=== PATIENT | female | born 1965 | race Caucasian/White ===

== ENCOUNTER → 2016-09-08 | Outpatient (CLI) | payer MEDICARE ==
[~2016-09-08] MED LIST: /ESCI20TA PO; /LOR25TA PO; /ONDA4TA; /PANT40TA; /WARF25TA OR; /WARF5TA OR; /WARF5TA PO; AMBI12.52 PO; AMBI5TAB OR; ASPI81TA45 OR; ATEN25TA PO; ATEN50TA2; B12 IM; BABY81CH OR; CHAN1PAK9 PO; COLA100C2; COUMADIN; CRES40TA OR; CYCL10TA PO; DICY10EL OR; DIPH2.5L OR; ESCI5TAB PO; FIORICET OR; FISHCAP; FLEX10TA2 PO; FLEXERIL PO; FOLI1TAB; GABA100C PO; IBUP600T; KEFL500C PO; LASI40TA; LIPI80TA; LIPI80TA PO; LOVAZA; MELA3TAB12 PO; METH-107 PO; MILKSUS; MORP15TA4 OR; NUCY100T11 PO; NUCY100T6 PO; OXYC15TA76 PO; OXYCONTIN SR; PERC5TAB8; PERC7.5T12 PO; PERC7.5T8; PLAV75TA2 OR; PRAV40TA2 PO; PROM125TA PO; PROT20TA11; RAMI25CA; REME15TA PO; REST15CA OR; SOMA350T OR; SYNT137T OR; TENO50TA OR; THERGRAN; TOPAMAX; TYLENOL PM PO; VICO5TAB; VICO5TAB PO; VITAMIN B; VITAMIN B12 INJ; VITAMIN D; VITAMIN D50000 UNT; XARE20TA PO; ZETI10TA OR; ZOFR8TAB OR; [UNRECOGNIZED DRUG - OTHER] PO; flexeril PO; metroprolol PO
--- NOTE | 2016-09-09 23:52 | ECWPNPC ---
PATIENT NAME: WALTER WISE : 1965 GENDER: FEMALE VISIT DATE: 09/08/2016 DISCHARGE DATE: 09/08/16 1646 VISIT LOCKED DATE TIME: PHYSICIAN: NAVID MILES RESOURCE: NAVID MILES REASON FOR APPOINTMENT 1. BACK/HIP HISTORY OF PRESENT ILLNESS HISTORY OF PRESENT ILLNESS: PAIN THE PATIENT DESCRIBES THE PAIN... FALL RISK SCREENING: SCREENING :NO FALLS IN THE PAST YEAR TODAY'S VISIT: NOTES: RETURNS TODAY FOR FIRST VISIT SINCE WINTERING IN [place].CONTINUES TO HAVE LOW BACK AND RIGHT HIP PAIN, WITH HIP PAIN. BEING THE WORST AREA. PAIN IS GETTING WORSE HIP IS LOCKING. HAS FALLEN. WALKING WITH A CANE SHE IS TERRIFIED OF FALLING. RATES PAIN TODAY 6/10. DESCRIBES PAIN CONSTANT, TENDER AND THROBBING, AND IT LIMITS HER ABILITY TO STAND AND WALK. . CURRENT MEDICATIONS TAKING ASPIR-81 81 MG TABLET DELAYED RELEASE 1 TABLET ORALLY ONCE A DAY, NOTES: 0500 TAKING LIPITOR 80 MG TABLET 1 TABLET ORALLY ONCE A DAY, NOTES: 5PM TAKING XARELTO 20 MG TABLET 1 TABLET ORALLY ONCE A DAY, NOTES: LAST 5PM YESTERDAY TAKING METOPROLOL SUCCINATE ER 200 MG TABLET EXTENDED RELEASE 24 HOUR 1 TABLET ORALLY TWICE DAILY, NOTES: 0500 TAKING AMLODIPINE BESYLATE 2.5 MG TABLET 1 TABLET ORALLY ONCE A DAY, NOTES: 5PM TAKING CLOPIDOGREL BISULFATE 75 MG TABLET 1 TABLET ORALLY ONCE A DAY, NOTES: 0500 AM TODAY TAKING FLONASE ALLERGY RELIEF 50 MCG/ACT SUSPENSION 1 SPRAY IN EACH NOSTRIL NASALLY ONCE A DAY NEEDED, NOTES: 0500 TAKING OXYCODONE HCL 15 MG TABLET 1 TABLET NEEDED ORALLY EVERY 6 HRS PRN PAIN MDD=3 CODE D CHRONIC PAIN, NOTES: 0800 TAKING CYCLOBENZAPRINE HCL 10 MG TABLET 1 TABLET ORALLY THREE TIMES A DAY, NOTES: 0800 TAKING VITAMIN B-12 1000 MCG/ML INJECTION 1 SHOT (1 ML) IM ONCE MONTHLY, NOTES: DUE ON TAKING ZOFRAN 4 MG TABLET 2 TABLETS ORALLY 3 TIMES A DAY NEEDED, NOTES: 2DAYS TAKING LEVOTHROID 100 MCG TABLET 1 TABLET EVERY MORNING ON AN EMPTY STOMACH ORALLY ONCE A DAY, NOTES: 0500 NOT-TAKING MILK OF MAGNESIA 1200 MG/15ML SUSPENSION 2 TEASPOONS ORALLY NEEDED, NOTES: NOT LATELY NOT-TAKING ATENOLOL 25 25MG TABLET 1 TAB(S) ORALLY DAILY (CARDIO.) NOT-TAKING XANAX 1 MG TABLET 1 TABLET ORALLY ON ARRIVAL TO CLINIC FOR INJECTION MDD=1 NOT-TAKING BEANO TABLET 3-4 TABS ORALLY DAILY NEEDED NOT-TAKING GAS-X 125 MG CAPSULE 2 TABS ORALLY DAILY IN AFTERNOON NOT-TAKING PHENERGAN 25MG TABS SOLUTION 1 TO 1 1/2 TABS INJECTION MAX DOSE 3 DAILY NEEDED NOT-TAKING BIOTIN 5000 MCG CAPSULE 1 CAPSULE ORALLY TWICE DAILY NOT-TAKING MULTIVITAMINS 1 TAB CAPSULE 1 ORALLY DAILY NOT-TAKING SOMA 350 MG TABLET 1 TABLET ORALLY THREE TIMES A DAY ([facility]) NOT-TAKING DRISDOL 50,000 UNITS TABLET 1 TAB WITH MEAL ORAL WEEKLY NOT-TAKING ESTRADIOL 0.1 MG/GM CREAM 0.5 GM VAGINAL TWICE A WEEK DISCONTINUED ZETIA 10 MG TABLET 1 TABLET ORALLY ONCE A DAY, NOTES: 0500 DISCONTINUED FLEXERIL 10 MG TABLET 1 TABLET ORALLY THREE TIMES A DAY MEDICATION LIST REVIEWED AND RECONCILED WITH THE PATIENT PAST MEDICAL HISTORY [place]/CABG/UNSTABLE ANGINA/MULTIPLE STENT PLACEMENTS RCA 2000 2001 2003 2004 2009 =- [facility] HISTORY OF CVA 2002 PULMONARY EMBOLISM 2006/HISTORY OF RECURRENT DVT PSORIATIC ARTHRITIS FIBROMYALGIA/CHRONIC BACK PAIN AND HIP PAIN OSTEOARTHRITIS ELEVATED FACTOR VIII HISTORY OF RENAL STONE PAST HISTORY OF MIGRAINE HEADACHE - RESOLVED WITH MENOPAUSE HYPOTHYROIDISM/STATUS POST THYROIDECTOMY FOR THYROID CANCER CONSTIPATION ABNORMAL PAP SMEAR - YESSI I WITH + HPV - FOLLOWS AT [facility] UNSPECIFIED URINARY CALCULUS UNSPECIFIED URINARY CALCULUS 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 DYSFUNCTION CHRONIC MIGRAINE WITHOUT AURA, WITH INTRACTABLE MIGRAINE, SO STATED, WITHOUT MENTION OF STATUS MIGRAINOSUS ESOPHAGEAL REFLUX NONDEPENDENT TOBACCO USE DISORDER INSOMNIA, UNSPECIFIED DEPRESSIVE DISORDER, NOT ELSEWHERE CLASSIFIED POSTMENOPAUSAL ATROPHIC VAGINITIS OTHER PULMONARY EMBOLISM AND INFARCTION VITAMIN D DEFICIENCY PLANTAR FASCIITIS ALLERGIES [id number] PERTUSSIS: ANAPHYLAXIS: ALLERGY ALL METALS: SEVERE SWELLING: ALLERGY NITROGLYCERIN: HYPOTENSION: SIDE EFFECTS SOCIAL HISTORY GENERAL: TOBACCO USE ARE YOU A:NONSMOKER LEARNING BARRIERS / SPECIAL NEEDS ORIENTED TO PLAN OF CARE: PATIENT, PAIN MANAGEMENT PATIENT, ORIENTED TO PLAN OF CARE: PATIENT, PAIN MANAGEMENT PATIENT. NEW PATIENT PAIN DIARY TODAY'S VISITNOTES FROM 0-10, WHAT LEVEL IS YOUR PAIN TODAY?0 PAIN CLINIC PFS, CLERGY, PUBLIC HEALTH REFERRALS PFS REFERRAL NEEDED?NO CLERGY REFERRAL NEEDED?NO PUBLIC HEALTH REFERRAL NEEDED?NO WAS THE PROVIDER NOTIFIED OF ANY PERTINENT INFO?NO PFS REFERRAL NEEDED?NO CLERGY REFERRAL NEEDED?NO PUBLIC HEALTH REFERRAL NEEDED?NO WAS THE PROVIDER NOTIFIED OF ANY PERTINENT INFO?NO REVIEW OF SYSTEMS CONSTITUTIONAL: ANY CHANGE IN YOUR MEDICAL CONDITION? NO . CHILLS NO . FEVER NO . INFECTION: DO YOU HAVE NEW INFECTIONS? NO . DO YOU HAVE HISTORY OF MRSA? NO . MUSCULOSKELETAL: ANY NEW PATTERNS OF PAIN OR NUMBNESS? NO . GASTROENTEROLOGY: ANY NEW CHANGE IN BOWEL CONTROL? NO . GENITOURINARY: ANY NEW CHANGE IN BLADDER CONTROL? NO . IS THERE A CHANCE YOU COULD BE ? NO . HEMATOLOGY/LYMPH: DO YOU TAKE ANY BLOOD THINNERS? (FOR EXAMPLE- COUMADIN, PLAVIX, AGGRENOX, PLATEL, PRADAXA, OR XARELTO) YES XARELTO AND PLAVIX . WHEN WAS YOUR LAST DOSE? DATE: TIME: . NEUROLOGY: HAVE YOU FALLEN IN THE PAST 6 MONTHS? YES NO INJURY/NO ED EVAL . ANY NEW EXTREMITY NUMBNESS OR WEAKNESS? NO . CARDIOLOGY: DO YOU HAVE A PACEMAKER OR DEFIBRILLATOR? NO . ANGINA INTERMITTANTLY WITH ACTIVITY - FOLLOWS CLOSELY WITH DR MARCELINO . HEART SURGERY STENTS PLACED - HAS [address] . RESPIRATORY: HAVE YOU BEEN SICK IN THE PAST WEEK? NO . FEVER NO . FLU LIKE SYMPTOMS? NO . COUGH NO . INTEGUMENTARY: DO YOU HAVE ANY RASHES OR OPEN SORES? NO . ALLERGIC/IMMUNO: ARE YOU ALLERGIC TO SHELLFISH OR IV DYE? NO . ANY NEW ALLERGIES? NO . PSYCHIATRIC: DO YOU HAVE THOUGHTS OF HURTING YOURSELF OR SOMEONE ELSE? NO . ARE YOU ABUSED, NEGLECTED, OR IN AN UNSAFE ENVIRONMENT? NO . ENDOCRINOLOGY: ARE YOU DIABETIC? YES . OTHER: DO YOU NEED ANY PRESCRIPTIONS? YES OXYCODONE/FLEXERIL . IF YES, PLEASE LIST: ____ . ANY NEW PROBLEMS WITH YOUR MEDICATIONS? NO . WHEN DID YOU LAST EAT? ____ . WHEN DID YOU LAST DRINK? ____ . WHAT DID YOU LAST DRINK? ____ . NAME OF PERSON DRIVING YOU HOME? ____ . DO YOU HAVE ANY OTHER QUESTIONS OR CONCERNS NO . 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 HAS HISTORY OF CERVICAL CANCER . REVIEWED BY: PROVIDER: NAVID BENZ . VITAL SIGNS WT 177.4 LBS, HT 63 IN, BMI 31.42 INDEX, BP 142/81 MM HG, HR 102 /MIN, RR 16 /MIN, TEMP 98.1 F, OXYGEN SAT % 95%, NA INITIALS SC 15:58. EXAMINATION GENERAL EXAMINATION: GENERAL APPEARANCE:COLOR PINK. PSYCHALERT , ORIENTED X 3 , APPROPRIATE MOOD AND AFFECT . LUNGS:CLEAR TO AUSCULTATION BILATERALLY. HEART:HEART RATE REGULAR. MUSCULOSKELETAL:EXQUISITE TENDERNESS OVER LEFT SIJ AND TROCANTER. LEGS GENERALLY WEAK. GENERALIZED TENDERNESS ABOVE AND BELOW THE WAIST CONSTANT WITH FIBROMYALGIA. ASSESSMENTS SACROILIITIS - M46.1 (PRIMARY) HIP PAIN, BILATERAL - M25.551 CHRONIC PRESCRIPTION OPIATE USE - Z79.891 TREATMENT SACROILIITIS REFILL OXYCODONE HCL TABLET, 15 MG, 1 TABLET NEEDED, ORALLY, EVERY 6 HRS PRN PAIN MDD=3 CODE D CHRONIC PAIN, 30 DAY(S), 120, REFILLS 0, NOTES: 0800 REFILL CYCLOBENZAPRINE HCL TABLET, 10 MG, 1 TABLET, ORALLY, THREE TIMES A DAY, 30 DAY(S), 90 TABLET, REFILLS 3, NOTES: 0800 NOTES: UPDATE NARCOTIC AGREEMENT AND UTOX TODAY. [facility] REASON:RIGHT HIP LABRAL TEAR, INCREASING PAIN, FALLS PROCEDURE CODES FA211 ESTABILISHED PATIENT [facility]AC[facility] CHARGE G8783 BP SCR PRFRM RCMDD DEFIND SCR INTVL G8730 PAIN ASSESS POS TOOL F/U PLAN DOC 3016F PT SCRND UNHLTHY OH USE 1124F ACP DISCUSS-NO DSCNMKR DOCD 0518F FALL PLAN OF CARE DOCD G8427 DOC MEDS VERIFIED W/PT OR RE G8420 BMI<30 AND >=22 CALC & DOCU 3288F FALL RISK ASSESSMENT DOCD 4004F PT TOBACCO SCREEN RCVD TLK DISPOSITION & COMMUNICATION FOLLOW UP 26-28 DAYS (REASON: BACK AND HIP PAIN) ELECTRONICALLY SIGNED BY ROGER NESBITT ON 09/09/2016 AT 01:29 PM EDT DISCLAIMER : THIS IS A VISIT SUMMARY EXTRACTED FROM THE [employer] CHART. IT IS NOT A COPY OF THE [employer] PROGRESS NOTE. MTDD
== END | disposition home or self-care (01) ==
LOC: M PAIN 14:40
PROVIDERS: ATTEND Nurse Practitioner Family
DX: Z09 Encounter for follow-up examination after completed treatment for conditions other than malignant neoplasm (principal); G89.29 Other chronic pain; M46.1 Sacroiliitis, not elsewhere classified; M25.551 Pain in right hip; R03.0 Elevated blood-pressure reading, without diagnosis of hypertension; E89.0 Postprocedural hypothyroidism; F33.9 Major depressive disorder, recurrent, unspecified; E55.9 Vitamin D deficiency, unspecified; M19.90 Unspecified osteoarthritis, unspecified site; I25.2 Old myocardial infarction; Z86.73 Personal history of transient ischemic attack (TIA), and cerebral infarction without residual deficits; Z86.711 Personal history of pulmonary embolism; K21.9 Gastro-esophageal reflux disease without esophagitis; Z79.899 Other long term (current) drug therapy; Z79.82 Long term (current) use of aspirin; Z79.01 Long term (current) use of anticoagulants; Z88.7 Allergy status to serum and vaccine; Z91.048 Other nonmedicinal substance allergy status

== ENCOUNTER 2016-09-23 21:36 | Emergency (ER) | payer MEDICARE ==
[~2016-09-23] VITALS: Ht 160 cm; Wt 78.9 kg
[2016-09-23] MEDS ORDERED: PLAV75TA38 PO (22:12)
[2016-09-23] MEDS ORDERED: METO-209 PO (22:14)
[2016-09-23] MEDS ORDERED: AMLO2.5T PO (22:14)
[2016-09-24] MEDS ORDERED: KETOROLAC 60 MG/2 ML VIAL (J1885) IM ONE (00:15)
--- NOTE | 2016-09-24 01:00 | REPUSA ---
CLINICAL HISTORY: Abdominal pain. TECHNIQUE: Multiple axial, sagittal and coronal CT images were obtained through the abdomen and pelvi s without administration of oral or IV contrast material. COMMENTS: The liver is mildly enlarged without mass or defect. There is no intra or extrahepatic biliary ductal dilatation. The spleen is normal. The gallbladder is surgically absent. The pancreas is of normal co ntour and attenuation characteristics. There is no evidence of adrenal mass. The kidneys are normal in size, shape and configuration. No renal or ureteral calculi are identified. There is no hydroureter or hydronephrosis. Prior fundoplication. There is no evidence for appendicitis. There is no bowel wall thickening. No evidence for small or la rge bowel obstruction. There is no evidence of abdominal ascites or lymphadenopathy. There is no evidence of intrinsic or extrinsic bladder mass. There is no pelvic ascites or lymphadeno raheel. Moderate large bowel fecal stasis suggestive of constipation. Images of the lung bases show no evidence of pleural or parenchymal mass. There are no pleural effusi ons. The bony structures are free of lytic or blastic lesions. Multilevel degenerative changes are seen in volving the thoracolumbar spine. Scattered calcifications are seen involving the aorta and major branches compatible with atherosclero sis. IMPRESSION: Large bowel fecal stasis. Prior fundoplication is suspected. Please correlate with the surgical history. Mild hepatomegaly. Thank you for your kind referral of this patient.
[2016-09-24 01:07] VITALS: BP 115/67
[2016-09-24] MEDS ORDERED: DULC100C PO (01:08)
== END 2016-09-24 01:20 | disposition home or self-care (01) ==
LOC: M ED 22:34
DX: M54.5 Low back pain (principal); K59.00 Constipation, unspecified; E11.9 Type 2 diabetes mellitus without complications; I10 Essential (primary) hypertension; I25.2 Old myocardial infarction; I51.9 Heart disease, unspecified; G89.29 Other chronic pain; E66.9 Obesity, unspecified; E78.00 Pure hypercholesterolemia, unspecified; F32.9 Major depressive disorder, single episode, unspecified; E03.9 Hypothyroidism, unspecified; F17.210 Nicotine dependence, cigarettes, uncomplicated; Z87.442 Personal history of urinary calculi; Z88.8 Allergy status to other drugs, medicaments and biological substances; Z88.7 Allergy status to serum and vaccine; Z91.09 Other allergy status, other than to drugs and biological substances; Z79.899 Other long term (current) drug therapy; Z79.82 Long term (current) use of aspirin; Z79.01 Long term (current) use of anticoagulants; Z95.1 Presence of aortocoronary bypass graft; Z95.5 Presence of coronary angioplasty implant and graft; Z86.73 Personal history of transient ischemic attack (TIA), and cerebral infarction without residual deficits
CPT/HCPCS: 74176; 81001; 87086; 96372; 99282; J1885

== ENCOUNTER → 2016-09-24 | Outpatient (REF) | payer OTHER ==
[~2016-09-24] MED LIST changes: +AMLO2.5T PO; +DULC100C PO; +METO-209 PO; +PLAV75TA38 PO
== END ==
LOC: M SFHCLERA 14:05
PROVIDERS: ATTEND Family Medicine
DX: R30.0 Dysuria (principal)

== ENCOUNTER → 2016-10-01 | Outpatient (CLI) | payer OTHER ==
--- NOTE | 2016-10-11 00:28 | ECWPNPC ---
PATIENT NAME: WALTER WISE : 1965 GENDER: FEMALE VISIT DATE: 10/01/2016 DISCHARGE DATE: 10/01/16 0938 VISIT LOCKED DATE TIME: PHYSICIAN: NAVID MILES RESOURCE: NAVID MILES REASON FOR APPOINTMENT 1. BACK/HIP HISTORY OF PRESENT ILLNESS HISTORY OF PRESENT ILLNESS: PAIN THE PATIENT DESCRIBES THE PAIN... FALL RISK SCREENING: SCREENING :NO FALLS IN THE PAST YEAR TODAY'S VISIT: NOTES: RATES PAIN TODAY 12/29. IS TO SEE DR BEAL TOMORROW REGARDING RIGHT HIP. HAS BEEN HAVING A SENSATION OF SEVERE PAIN IN THE HIP WITH LOCKING AND RADIATION OF PAIN TO RECTUM. PAIN LEVEL WITHOUT LOCKING UP AND ON MEDS IS /10. DID HAVE FALL - IS NOW USING CANE.. CURRENT MEDICATIONS TAKING OXYCODONE HCL 15 MG TABLET 1 TABLET NEEDED ORALLY EVERY 6 HRS PRN PAIN MDD=3 CODE D CHRONIC PAIN, NOTES: 0800 TAKING CYCLOBENZAPRINE HCL 10 MG TABLET 1 TABLET ORALLY THREE TIMES A DAY, NOTES: 0800 TAKING ASPIR-81 81 MG TABLET DELAYED RELEASE 1 TABLET ORALLY ONCE A DAY, NOTES: 0500 TAKING LIPITOR 80 MG TABLET 1 TABLET ORALLY ONCE A DAY, NOTES: 5PM TAKING XARELTO 20 MG TABLET 1 TABLET ORALLY ONCE A DAY, NOTES: LAST 5PM YESTERDAY TAKING METOPROLOL SUCCINATE ER 100 MG TABLET EXTENDED RELEASE 24 HOUR 1 TABLET ORALLY TWICE DAILY, NOTES: 0500 TAKING AMLODIPINE BESYLATE 2.5 MG TABLET 1 TABLET ORALLY ONCE A DAY, NOTES: 5PM TAKING CLOPIDOGREL BISULFATE 75 MG TABLET 1 TABLET ORALLY ONCE A DAY, NOTES: 0500 AM TODAY TAKING FLONASE ALLERGY RELIEF 50 MCG/ACT SUSPENSION 1 SPRAY IN EACH NOSTRIL NASALLY ONCE A DAY NEEDED, NOTES: 0500 TAKING VITAMIN B-12 1000 MCG/ML INJECTION 1 SHOT (1 ML) IM ONCE MONTHLY, NOTES: DUE ON TAKING LEVOTHROID 100 MCG TABLET 1 TABLET EVERY MORNING ON AN EMPTY STOMACH ORALLY ONCE A DAY FOR HYPOTHYROIDISM TAKING ZOFRAN ODT 8 MG TABLET DISPERSIBLE 1 TAB(S) ORALLY TID WHEN NEEDED FOR NAUSEA NOT-TAKING ZOFRAN 4 MG TABLET 2 TABLETS ORALLY 3 TIMES A DAY NEEDED, NOTES: 2DAYS NOT-TAKING MILK OF MAGNESIA 1200 MG/15ML SUSPENSION 2 TEASPOONS ORALLY NEEDED, NOTES: NOT LATELY NOT-TAKING ATENOLOL 25 25MG TABLET 1 TAB(S) ORALLY DAILY (CARDIO.) NOT-TAKING XANAX 1 MG TABLET 1 TABLET ORALLY ON ARRIVAL TO CLINIC FOR INJECTION MDD=1 NOT-TAKING BEANO TABLET 3-4 TABS ORALLY DAILY NEEDED NOT-TAKING GAS-X 125 MG CAPSULE 2 TABS ORALLY DAILY IN AFTERNOON NOT-TAKING PHENERGAN 25MG TABS SOLUTION 1 TO 1 1/2 TABS INJECTION MAX DOSE 3 DAILY NEEDED NOT-TAKING BIOTIN 5000 MCG CAPSULE 1 CAPSULE ORALLY TWICE DAILY NOT-TAKING MULTIVITAMINS 1 TAB CAPSULE 1 ORALLY DAILY NOT-TAKING SOMA 350 MG TABLET 1 TABLET ORALLY THREE TIMES A DAY ([facility]) NOT-TAKING DRISDOL 50,000 UNITS TABLET 1 TAB WITH MEAL ORAL WEEKLY NOT-TAKING ESTRADIOL 0.1 MG/GM CREAM 0.5 GM VAGINAL TWICE A WEEK MEDICATION LIST REVIEWED AND RECONCILED WITH THE PATIENT PAST MEDICAL HISTORY [place]/CABG/UNSTABLE ANGINA/MULTIPLE STENT PLACEMENTS RCA 2000 2001 2003 2004 2009 =- [facility] HISTORY OF CVA 2002 PULMONARY EMBOLISM 2006/HISTORY OF RECURRENT DVT PSORIATIC ARTHRITIS FIBROMYALGIA/CHRONIC BACK PAIN AND HIP PAIN OSTEOARTHRITIS ELEVATED FACTOR VIII HISTORY OF RENAL STONE PAST HISTORY OF MIGRAINE HEADACHE - RESOLVED WITH MENOPAUSE HYPOTHYROIDISM/STATUS POST THYROIDECTOMY FOR THYROID CANCER CONSTIPATION ABNORMAL PAP SMEAR - YESSI I WITH + HPV - FOLLOWS AT [facility] UNSPECIFIED URINARY CALCULUS UNSPECIFIED URINARY CALCULUS 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 DYSFUNCTION CHRONIC MIGRAINE WITHOUT AURA, WITH INTRACTABLE MIGRAINE, SO STATED, WITHOUT MENTION OF STATUS MIGRAINOSUS ESOPHAGEAL REFLUX NONDEPENDENT TOBACCO USE DISORDER INSOMNIA, UNSPECIFIED DEPRESSIVE DISORDER, NOT ELSEWHERE CLASSIFIED POSTMENOPAUSAL ATROPHIC VAGINITIS OTHER PULMONARY EMBOLISM AND INFARCTION VITAMIN D DEFICIENCY PLANTAR FASCIITIS ALLERGIES [id number] PERTUSSIS: ANAPHYLAXIS: ALLERGY ALL METALS: SEVERE SWELLING: ALLERGY NITROGLYCERIN: HYPOTENSION: SIDE EFFECTS SOCIAL HISTORY GENERAL: PAIN CLINIC PFS, CLERGY, PUBLIC HEALTH REFERRALS CLERGY REFERRAL NEEDED?NO WAS THE PROVIDER NOTIFIED OF ANY PERTINENT INFO?NO PFS REFERRAL NEEDED?NO PUBLIC HEALTH REFERRAL NEEDED?NO PATIENT: ____. REVIEW OF SYSTEMS CONSTITUTIONAL: ANY CHANGE IN YOUR MEDICAL CONDITION? NO . CHILLS NO . FEVER NO . INFECTION: DO YOU HAVE NEW INFECTIONS? NO . DO YOU HAVE HISTORY OF MRSA? NO . MUSCULOSKELETAL: ANY NEW PATTERNS OF PAIN OR NUMBNESS? NO . GASTROENTEROLOGY: ANY NEW CHANGE IN BOWEL CONTROL? NO . GENITOURINARY: ANY NEW CHANGE IN BLADDER CONTROL? NO . IS THERE A CHANCE YOU COULD BE ? NO . HEMATOLOGY/LYMPH: DO YOU TAKE ANY BLOOD THINNERS? (FOR EXAMPLE- COUMADIN, PLAVIX, AGGRENOX, PLATEL, PRADAXA, OR XARELTO) NO . WHEN WAS YOUR LAST DOSE? DATE: TIME: . NEUROLOGY: HAVE YOU FALLEN IN THE PAST 6 MONTHS? NO . ANY NEW EXTREMITY NUMBNESS OR WEAKNESS? NO . CARDIOLOGY: DO YOU HAVE A PACEMAKER OR DEFIBRILLATOR? NO . CHEST PAIN NONE RECENT . RESPIRATORY: HAVE YOU BEEN SICK IN THE PAST WEEK? NO . FEVER NO . FLU LIKE SYMPTOMS? NO . COUGH NO . INTEGUMENTARY: DO YOU HAVE ANY RASHES OR OPEN SORES? NO . ALLERGIC/IMMUNO: ARE YOU ALLERGIC TO SHELLFISH OR IV DYE? NO . ANY NEW ALLERGIES? NO . PSYCHIATRIC: DO YOU HAVE THOUGHTS OF HURTING YOURSELF OR SOMEONE ELSE? NO . ARE YOU ABUSED, NEGLECTED, OR IN AN UNSAFE ENVIRONMENT? NO . ENDOCRINOLOGY: ARE YOU DIABETIC? NO . OTHER: DO YOU NEED ANY PRESCRIPTIONS? NO . IF YES, PLEASE LIST: ____ . ANY NEW PROBLEMS WITH YOUR MEDICATIONS? NO . WHEN DID YOU LAST EAT? ____ . WHEN DID YOU LAST DRINK? ____ . WHAT DID YOU LAST DRINK? ____ . NAME OF PERSON DRIVING YOU HOME? ____ . DO YOU HAVE ANY OTHER QUESTIONS OR CONCERNS NO . UROLOGY: GENERAL IN ER FOR KIDNEY STONES . REVIEWED BY: PROVIDER: NAVID BENZ . VITAL SIGNS WT 179.0 LBS, HT 63 IN, BMI 31.70 INDEX, BP 170/85 MM HG, HR 101 /MIN, RR 16 /MIN, TEMP 97.8 F, OXYGEN SAT % 99, NA INITIALS AW 0903. EXAMINATION GENERAL EXAMINATION: GENERAL APPEARANCE:COLOR PINK. PSYCHALERT , ORIENTED X 3 , APPROPRIATE MOOD AND AFFECT . LUNGS:CLEAR TO AUSCULTATION BILATERALLY. HEART:HEART RATE REGULAR. MUSCULOSKELETAL:EXQUISITE TENDERNESS OVER RIGHT SIJ AND TROCANTER AND AT THE RIGHT PIRIFORMIS. .LEGS GENERALLY WEAK. GENERALIZED TENDERNESS ABOVE AND BELOW THE WAIST CONSTANT WITH FIBROMYALGIA. CANE USED FOR BALANCE. ASSESSMENTS SACROILIITIS - M46.1 (PRIMARY) HIP PAIN, BILATERAL - M25.551 CHRONIC PRESCRIPTION OPIATE USE - Z79.891 TREATMENT SACROILIITIS REFILL OXYCODONE HCL TABLET, 15 MG, 1 TABLET NEEDED, ORALLY, EVERY 6 HRS PRN PAIN MDD=4 CHRONIC PAIN, 30 DAY(S), 120, REFILLS 0, NOTES: 0800 NOTES: ICE TO RIGHT BUTTUCK 10 MINUTES SEVERAL TIMES PER DAY. OK TO TAKE 4 OXYCODONE PER DAY. PROCEDURE CODES FA211 ESTABILISHED PATIENT [facility] CHARGE G8730 PAIN ASSESS POS TOOL F/U PLAN DOC G8427 DOC MEDS VERIFIED W/PT OR RE DISPOSITION & COMMUNICATION FOLLOW UP 1 MONTH ELECTRONICALLY SIGNED BY ROGER NESBITT ON 10/10/2016 AT 09:11 AM EDT DISCLAIMER : THIS IS A VISIT SUMMARY EXTRACTED FROM THE [employer] CHART. IT IS NOT A COPY OF THE [employer] PROGRESS NOTE. AUGUSTUS
== END | disposition home or self-care (01) ==
LOC: M PAIN 09:00
PROVIDERS: ATTEND Nurse Practitioner Family
DX: G89.29 Other chronic pain (principal); M46.1 Sacroiliitis, not elsewhere classified; M25.551 Pain in right hip; E03.9 Hypothyroidism, unspecified; E55.9 Vitamin D deficiency, unspecified; K21.9 Gastro-esophageal reflux disease without esophagitis; M19.90 Unspecified osteoarthritis, unspecified site; I25.2 Old myocardial infarction; Z95.1 Presence of aortocoronary bypass graft; M79.7 Fibromyalgia; Z86.711 Personal history of pulmonary embolism; Z79.899 Other long term (current) drug therapy; Z79.82 Long term (current) use of aspirin; Z79.01 Long term (current) use of anticoagulants; Z88.7 Allergy status to serum and vaccine; Z88.8 Allergy status to other drugs, medicaments and biological substances; Z91.048 Other nonmedicinal substance allergy status; Z72.0 Tobacco use

== ENCOUNTER → 2016-10-16 | Outpatient (REF) | payer OTHER ==
[2016-10-16 18:10] LABS: FREE T4 1.19 NG/DL (0.76-1.46)
== END ==
LOC: M SFHCLERA 12:17
PROVIDERS: ATTEND Family Medicine
DX: E03.9 Hypothyroidism, unspecified (principal)

== ENCOUNTER → 2016-10-29 | Outpatient (CLI) | payer MEDICARE ==
--- NOTE | 2016-11-19 02:34 | ECWPNPC ---
PATIENT NAME: WALTER WISE : 1965 GENDER: FEMALE VISIT DATE: 10/29/2016 DISCHARGE DATE: 10/29/1633 VISIT LOCKED DATE TIME: PHYSICIAN: NAVID MILES RESOURCE: NAVID MILES REASON FOR APPOINTMENT 1. BACK/HIP HISTORY OF PRESENT ILLNESS HISTORY OF PRESENT ILLNESS: PAIN THE PATIENT DESCRIBES THE PAIN... FALL RISK SCREENING: SCREENING :NO FALLS IN THE PAST YEAR TODAY'S VISIT: NOTES: RATES PAIN TODAY 09/29. SAW DR KAREN MCCALL AND RIGHT HIP SURGERY IS BEING PLANNED. HE FEELS SHE HAS A TUMOR (BENIGN) IN HER HIP JOINT WHICH IS DEFORNING THE HIP. . CURRENT MEDICATIONS TAKING CYCLOBENZAPRINE HCL 10 MG TABLET 1 TABLET ORALLY THREE TIMES A DAY TAKING ASPIR-81 81 MG TABLET DELAYED RELEASE 1 TABLET ORALLY ONCE A DAY TAKING LIPITOR 80 MG TABLET 1 TABLET ORALLY ONCE A DAY TAKING XARELTO 20 MG TABLET 1 TABLET ORALLY ONCE A DAY TAKING METOPROLOL SUCCINATE ER 100 MG TABLET EXTENDED RELEASE 24 HOUR 1 TABLET ORALLY TWICE DAILY TAKING AMLODIPINE BESYLATE 2.5 MG TABLET 1 TABLET ORALLY ONCE A DAY TAKING CLOPIDOGREL BISULFATE 75 MG TABLET 1 TABLET ORALLY ONCE A DAY TAKING FLONASE ALLERGY RELIEF 50 MCG/ACT SUSPENSION 1 SPRAY IN EACH NOSTRIL NASALLY ONCE A DAY NEEDED TAKING LEVOTHROID 100 MCG TABLET 1 TABLET EVERY MORNING ON AN EMPTY STOMACH ORALLY ONCE A DAY FOR HYPOTHYROIDISM TAKING ZOFRAN ODT 8 MG TABLET DISPERSIBLE 1 TAB(S) ORALLY TID WHEN NEEDED FOR NAUSEA TAKING OXYCODONE HCL 15 MG TABLET 1 TABLET NEEDED ORALLY EVERY 6 HRS PRN PAIN MDD=4 CHRONIC PAIN, NOTES: 0800 TAKING XANAX 0.25 MG TABLET 1 TABLET ORALLY QHS (MDD;1) TAKING ZYBAN 150 MG TABLET EXTENDED RELEASE 12 HOUR 1 TABLET IN THE MORNING ORALLY BID TAKING VITAMIN B-12 1000 MCG/ML INJECTION 1 SHOT (1 ML) IM ONCE MONTHLY NOT-TAKING ZOFRAN 4 MG TABLET 2 TABLETS ORALLY 3 TIMES A DAY NEEDED, NOTES: 2DAYS NOT-TAKING MILK OF MAGNESIA 1200 MG/15ML SUSPENSION 2 TEASPOONS ORALLY NEEDED, NOTES: NOT LATELY NOT-TAKING ATENOLOL 25 25MG TABLET 1 TAB(S) ORALLY DAILY (CARDIO.) NOT-TAKING XANAX 1 MG TABLET 1 TABLET ORALLY ON ARRIVAL TO CLINIC FOR INJECTION MDD=1 NOT-TAKING BEANO TABLET 3-4 TABS ORALLY DAILY NEEDED NOT-TAKING GAS-X 125 MG CAPSULE 2 TABS ORALLY DAILY IN AFTERNOON NOT-TAKING PHENERGAN 25MG TABS SOLUTION 1 TO 1 1/2 TABS INJECTION MAX DOSE 3 DAILY NEEDED NOT-TAKING BIOTIN 5000 MCG CAPSULE 1 CAPSULE ORALLY TWICE DAILY NOT-TAKING MULTIVITAMINS 1 TAB CAPSULE 1 ORALLY DAILY NOT-TAKING SOMA 350 MG TABLET 1 TABLET ORALLY THREE TIMES A DAY ([facility]) NOT-TAKING DRISDOL 50,000 UNITS TABLET 1 TAB WITH MEAL ORAL WEEKLY NOT-TAKING ESTRADIOL 0.1 MG/GM CREAM 0.5 GM VAGINAL TWICE A WEEK MEDICATION LIST REVIEWED AND RECONCILED WITH THE PATIENT PAST MEDICAL HISTORY [place]/CABG/UNSTABLE ANGINA/MULTIPLE STENT PLACEMENTS RCA 2000 2001 2003 2004 2009 =- [facility] HISTORY OF CVA 2002 PULMONARY EMBOLISM 2006/HISTORY OF RECURRENT DVT PSORIATIC ARTHRITIS FIBROMYALGIA/CHRONIC BACK PAIN AND HIP PAIN OSTEOARTHRITIS ELEVATED FACTOR VIII HISTORY OF RENAL STONE PAST HISTORY OF MIGRAINE HEADACHE - RESOLVED WITH MENOPAUSE HYPOTHYROIDISM/STATUS POST THYROIDECTOMY FOR THYROID CANCER CONSTIPATION ABNORMAL PAP SMEAR - YESSI I WITH + HPV - FOLLOWS AT [facility] UNSPECIFIED URINARY CALCULUS UNSPECIFIED URINARY CALCULUS 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 DYSFUNCTION CHRONIC MIGRAINE WITHOUT AURA, WITH INTRACTABLE MIGRAINE, SO STATED, WITHOUT MENTION OF STATUS MIGRAINOSUS ESOPHAGEAL REFLUX NONDEPENDENT TOBACCO USE DISORDER INSOMNIA, UNSPECIFIED DEPRESSIVE DISORDER, NOT ELSEWHERE CLASSIFIED POSTMENOPAUSAL ATROPHIC VAGINITIS OTHER PULMONARY EMBOLISM AND INFARCTION VITAMIN D DEFICIENCY PLANTAR FASCIITIS ALLERGIES [id number] PERTUSSIS: ANAPHYLAXIS: ALLERGY ALL METALS: SEVERE SWELLING: ALLERGY NITROGLYCERIN: HYPOTENSION: SIDE EFFECTS REVIEW OF SYSTEMS CONSTITUTIONAL: ANY CHANGE IN YOUR MEDICAL CONDITION? NO . CHILLS NO . FEVER NO . INFECTION: DO YOU HAVE NEW INFECTIONS? NO . DO YOU HAVE HISTORY OF MRSA? NO . MUSCULOSKELETAL: ANY NEW PATTERNS OF PAIN OR NUMBNESS? NO . GASTROENTEROLOGY: ANY NEW CHANGE IN BOWEL CONTROL? NO . GENITOURINARY: ANY NEW CHANGE IN BLADDER CONTROL? NO . IS THERE A CHANCE YOU COULD BE ? NO . HEMATOLOGY/LYMPH: DO YOU TAKE ANY BLOOD THINNERS? (FOR EXAMPLE- COUMADIN, PLAVIX, AGGRENOX, PLATEL, PRADAXA, OR XARELTO) YES, XARELTO AND PLAVIX . WHEN WAS YOUR LAST DOSE? DATE: TIME: XARELTO & PLAVIX 10/28/161999, . NEUROLOGY: HAVE YOU FALLEN IN THE PAST 6 MONTHS? NO . ANY NEW EXTREMITY NUMBNESS OR WEAKNESS? NO . CARDIOLOGY: DO YOU HAVE A PACEMAKER OR DEFIBRILLATOR? NO . RESPIRATORY: HAVE YOU BEEN SICK IN THE PAST WEEK? NO . FEVER NO . FLU LIKE SYMPTOMS? NO . COUGH NO . INTEGUMENTARY: DO YOU HAVE ANY RASHES OR OPEN SORES? NO . ALLERGIC/IMMUNO: ARE YOU ALLERGIC TO SHELLFISH OR IV DYE? NO . ANY NEW ALLERGIES? NO . PSYCHIATRIC: DO YOU HAVE THOUGHTS OF HURTING YOURSELF OR SOMEONE ELSE? NO . ARE YOU ABUSED, NEGLECTED, OR IN AN UNSAFE ENVIRONMENT? NO . ENDOCRINOLOGY: ARE YOU DIABETIC? YES . OTHER: DO YOU NEED ANY PRESCRIPTIONS? NO . IF YES, PLEASE LIST: ____ . ANY NEW PROBLEMS WITH YOUR MEDICATIONS? NO . WHEN DID YOU LAST EAT? ____ . WHEN DID YOU LAST DRINK? ____ . WHAT DID YOU LAST DRINK? ____ . NAME OF PERSON DRIVING YOU HOME? ____ . DO YOU HAVE ANY OTHER QUESTIONS OR CONCERNS NO . REVIEWED BY: PROVIDER: NAVID BENZ . VITAL SIGNS WT 178.6 LBS, HT 63 IN, BMI 31.63 INDEX, BP 143/77 MM HG, HR 69 /MIN, RR 16 /MIN, TEMP 96.4 F, OXYGEN SAT % 95%, NA INITIALS SC 09:07, REVIEWED BY: AD. EXAMINATION GENERAL EXAMINATION: GENERAL APPEARANCE:COLOR PINK. PSYCHALERT , ORIENTED X 3 , APPROPRIATE MOOD AND AFFECT INTERMITTANTLY WEEPY AND UNDER EMOTIONAL DISTRESS. LUNGS:CLEAR TO AUSCULTATION BILATERALLY. HEART:HEART RATE REGULAR. MUSCULOSKELETAL:EXQUISITE TENDERNESS OVER RIGHT SIJ AND TROCANTER AND AT THE RIGHT PIRIFORMIS. .LEGS GENERALLY WEAK. GENERALIZED TENDERNESS ABOVE AND BELOW THE WAIST CONSTANT WITH FIBROMYALGIA. CANE USED FOR BALANCE. ASSESSMENTS SACROILIITIS - M46.1 (PRIMARY) HIP PAIN, BILATERAL - M25.551 CHRONIC PRESCRIPTION OPIATE USE - Z79.891 TREATMENT SACROILIITIS REFILL OXYCODONE HCL TABLET, 15 MG, 1 TABLET NEEDED, ORALLY, EVERY 6 HRS PRN PAIN MDD=4 CHRONIC PAIN, 30 DAY(S), 120, REFILLS 0, NOTES: 0800 NOTES: REVIEWED WITH PATIENT THE POTENTIAL RISK OF INCREASED SEDATION, RESPIRATORY SUPPRESSION AND WITH THE COMBINATION OF BENZODIAZAPINE AND OPIOD MEDICATIONS. PATIENT STATES HE UNDERSTANDS THIS RISK AND WISHES TO CONTINUE WITH THERAPY. CONTINUE CURRENT MEDS. CLINICAL NOTES: ISTOP REGISTRY REVIEWED AND DEMNOSTRATES COMPLLIANCE. BRINGS IN MEDICATIONS WHICH IS APPROPRIATE FOR WHAT WAS DISPENSED. RECENT URINE TOXICOLOGY REVIEWED. NO UNAUTHORIZED MEDICATIONS. NO ILLICIT SUBSTANCES AND PRESCRIBED MEDICATIONS WERE PRESENT. PROCEDURE CODES [id number] ESTABILISHED PATIENT [facility] FACILITY CHARGE [id number] PAIN ASSESS POS TOOL F/U PLAN DOC [id number] DOC MEDS VERIFIED W/PT OR RE DISPOSITION & COMMUNICATION FOLLOW UP 7 WEEKS (REASON: HIP PAIN) ELECTRONICALLY SIGNED BY ROGER NESBITT ON 11/18/2016 AT 08:29 AM EDT DISCLAIMER : THIS IS A VISIT SUMMARY EXTRACTED FROM THE [employer] CHART. IT IS NOT A COPY OF THE [employer] PROGRESS NOTE. AUGUSTUS
== END | disposition home or self-care (01) ==
LOC: M PAIN 08:40
PROVIDERS: ATTEND Nurse Practitioner Family
DX: G89.29 Other chronic pain (principal); M46.1 Sacroiliitis, not elsewhere classified; M25.551 Pain in right hip; E03.9 Hypothyroidism, unspecified; E55.9 Vitamin D deficiency, unspecified; K21.9 Gastro-esophageal reflux disease without esophagitis; M19.90 Unspecified osteoarthritis, unspecified site; I25.2 Old myocardial infarction; Z95.1 Presence of aortocoronary bypass graft; M79.7 Fibromyalgia; Z86.711 Personal history of pulmonary embolism; Z79.899 Other long term (current) drug therapy; Z79.82 Long term (current) use of aspirin; Z79.01 Long term (current) use of anticoagulants; Z88.7 Allergy status to serum and vaccine; Z88.8 Allergy status to other drugs, medicaments and biological substances; Z91.048 Other nonmedicinal substance allergy status; Z72.0 Tobacco use

== ENCOUNTER → 2016-12-11 | Outpatient (CLI) | payer MEDICARE ==
[~2016-12-11] MED LIST changes: +KEFL500C17 PO; -METH-107 PO; +METH1TAB40 PO; -METO-209 PO; +METO1TAB33 PO; +PLAV1TAB2 PO; -PLAV75TA38 PO; +ZOFR8TAB4 PO
[2016-12-11 13:36] LABS: MEAN CORPUSCULAR HEMOGLOBIN 31.9 pg (27.0-33.0); MEAN CORPUSCULAR HGB CONC 33.7 g/dl (32.0-36.5); MEAN CORPUSCULAR VOLUME 94.5 fl (80.0-96.0); RED CELL DISTRIBUTION WIDTH 12.5 % (11.5-14.5); WHITE BLOOD COUNT 7.2 K/mm3 (4.0-10.0)
[2016-12-11 14:02] LABS: ALBUMIN 3.5 GM/DL (3.2-5.2); ALBUMIN/GLOBULIN RATIO 1.06 (1.00-1.93); ALKALINE PHOSPHATASE 109 U/L (45-117); ALT/SGPT 19 U/L (12-78); ANION GAP 6 MEQ/L (8-16); AST/SGOT 16 U/L (15-37); BILIRUBIN,TOTAL 0.5 MG/DL (0.2-1.0); BLOOD UREA NITROGEN 10 MG/DL (7-18); CALCIUM LEVEL 8.9 MG/DL (8.5-10.1); CARBON DIOXIDE LEVEL 31 MEQ/L (21-32); CHLORIDE LEVEL 103 MEQ/L (98-107); CHOLESTEROL LEVEL 291 MG/DL (<200); GLOMERULAR FILTRATION RATE > 60.0 (>51); GLUCOSE, FASTING 74 MG/DL (70-105); POTASSIUM SERUM 4.6 MEQ/L (3.5-5.1); SODIUM LEVEL 140 MEQ/L (136-145); TOTAL PROTEIN 6.8 GM/DL (6.4-8.2); TRIGLYCERIDES LEVEL 301 MG/DL (<150)
== END ==
LOC: M LRY 09:57
PROVIDERS: ATTEND Internal Medicine Cardiovascular Disease
DX: Z01.818 Encounter for other preprocedural examination (principal); M24.159 Other articular cartilage disorders, unspecified hip; I25.10 Atherosclerotic heart disease of native coronary artery without angina pectoris; I10 Essential (primary) hypertension; E78.5 Hyperlipidemia, unspecified; R03.0 Elevated blood-pressure reading, without diagnosis of hypertension; F17.210 Nicotine dependence, cigarettes, uncomplicated; Z79.891 Long term (current) use of opiate analgesic; Z79.82 Long term (current) use of aspirin; Z79.899 Other long term (current) drug therapy
CPT/HCPCS: 36415; 80053; 80061; 81001; 83036; 84439; 84443; 85027; 85610; 85730; 87086; G0463

== ENCOUNTER → 2016-12-11 | Outpatient (REF) | payer MEDICARE ==
[~2016-12-11] MED LIST changes: -KEFL500C17 PO; +METH-107 PO; -METH1TAB40 PO; +METO-209 PO; -METO1TAB33 PO; -PLAV1TAB2 PO; +PLAV75TA38 PO; -ZOFR8TAB4 PO
[2016-12-11 13:41] LABS: INR 1.44
[2016-12-11 14:01] LABS: FREE T4 1.32 NG/DL (0.76-1.46)
== END ==
LOC: M SFHCLERA 10:03
PROVIDERS: ATTEND Family Medicine
DX: Z01.818 Encounter for other preprocedural examination (principal); M16.11 Unilateral primary osteoarthritis, right hip; E03.9 Hypothyroidism, unspecified; R03.0 Elevated blood-pressure reading, without diagnosis of hypertension; F17.200 Nicotine dependence, unspecified, uncomplicated; Z79.891 Long term (current) use of opiate analgesic; Z79.899 Other long term (current) drug therapy

== ENCOUNTER → 2016-12-17 | Outpatient (CLI) | payer MEDICARE ==
[~2016-12-17] MED LIST changes: +KEFL500C17 PO; -METH-107 PO; +METH1TAB40 PO; -METO-209 PO; +METO1TAB33 PO; +PLAV1TAB2 PO; -PLAV75TA38 PO; +ZOFR8TAB4 PO
--- NOTE | 2017-01-03 01:31 | ECWPNPC ---
PATIENT NAME: WALTER WISE : 1965 GENDER: FEMALE VISIT DATE: 12/17/2016 DISCHARGE DATE: 12/17/16 0938 VISIT LOCKED DATE TIME: PHYSICIAN: NAVID MILES RESOURCE: NAVID MILES REASON FOR APPOINTMENT 1. BACK/HIP HISTORY OF PRESENT ILLNESS HISTORY OF PRESENT ILLNESS: PAIN THE PATIENT DESCRIBES THE PAIN... FALL RISK SCREENING: SCREENING :NO FALLS IN THE PAST YEAR TODAY'S VISIT: NOTES: RATES PAIN TODAY 08/01. IS SCHEDULED TO DO RIGHT HIP SURGERY 01/09/[address] KAREN MCCALL. SHE HAS BEEN CLEARED BY DR MARCELINO. REPORTS PAIN MEDS HAVE BEEN WORKING WELL. DR BEAL IS REQUESTING THAT WE MANAGE HER PAIN MEDS POST OPERATIVELY.. CURRENT MEDICATIONS TAKING CHANTIX STARTING MONTH NIKI 0.5 MG X 11 & 1 MG X 42 TABLET DIRECTED ORALLY DAILY TAKING OXYCODONE HCL 15 MG TABLET 1 TABLET NEEDED ORALLY EVERY 6 HRS PRN PAIN MDD=4 CHRONIC PAIN, NOTES: 0800 TAKING ASPIR-81 81 MG TABLET DELAYED RELEASE 1 TABLET ORALLY ONCE A DAY TAKING LIPITOR 80 MG TABLET 1 TABLET ORALLY ONCE A DAY TAKING XARELTO 20 MG TABLET 1 TABLET ORALLY ONCE A DAY TAKING METOPROLOL SUCCINATE ER 100 MG TABLET EXTENDED RELEASE 24 HOUR 1 TABLET ORALLY TWICE DAILY TAKING CLOPIDOGREL BISULFATE 75 MG TABLET 1 TABLET ORALLY ONCE A DAY TAKING FLONASE ALLERGY RELIEF 50 MCG/ACT SUSPENSION 1 SPRAY IN EACH NOSTRIL NASALLY ONCE A DAY NEEDED TAKING LEVOTHROID 100 MCG TABLET 1 TABLET EVERY MORNING ON AN EMPTY STOMACH ORALLY ONCE A DAY FOR HYPOTHYROIDISM TAKING ZOFRAN ODT 8 MG TABLET DISPERSIBLE 1 TAB(S) ORALLY TID WHEN NEEDED FOR NAUSEA TAKING VITAMIN B-12 1000 MCG/ML INJECTION 1 SHOT (1 ML) IM ONCE MONTHLY TAKING BIOTIN 5000 MCG CAPSULE 1 CAPSULE ORALLY TWICE DAILY TAKING MULTIVITAMINS 1 TAB CAPSULE 1 ORALLY DAILY NOT-TAKING AMLODIPINE BESYLATE 2.5 MG TABLET 1 TABLET ORALLY ONCE A DAY NOT-TAKING XANAX 0.25 MG TABLET 1 TABLET ORALLY QHS (MDD;1) UNKNOWN CYCLOBENZAPRINE HCL 10 MG TABLET 1 TABLET ORALLY THREE TIMES A DAY UNKNOWN ZOFRAN 4 MG TABLET 2 TABLETS ORALLY 3 TIMES A DAY NEEDED, NOTES: 2DAYS UNKNOWN MILK OF MAGNESIA 1200 MG/15ML SUSPENSION 2 TEASPOONS ORALLY NEEDED, NOTES: NOT LATELY UNKNOWN ATENOLOL 25 25MG TABLET 1 TAB(S) ORALLY DAILY (CARDIO.) UNKNOWN XANAX 1 MG TABLET 1 TABLET ORALLY ON ARRIVAL TO CLINIC FOR INJECTION MDD=1 UNKNOWN BEANO TABLET 3-4 TABS ORALLY DAILY NEEDED UNKNOWN GAS-X 125 MG CAPSULE 2 TABS ORALLY DAILY IN AFTERNOON UNKNOWN PHENERGAN 25MG TABS SOLUTION 1 TO 1 1/2 TABS INJECTION MAX DOSE 3 DAILY NEEDED UNKNOWN SOMA 350 MG TABLET 1 TABLET ORALLY THREE TIMES A DAY ([facility]) UNKNOWN DRISDOL 50,000 UNITS TABLET 1 TAB WITH MEAL ORAL WEEKLY UNKNOWN ESTRADIOL 0.1 MG/GM CREAM 0.5 GM VAGINAL TWICE A WEEK MEDICATION LIST REVIEWED AND RECONCILED WITH THE PATIENT PAST MEDICAL HISTORY FL/CABG/UNSTABLE ANGINA/MULTIPLE STENT PLACEMENTS RCA 2000 2001 2003 2004 2009 =- [facility] HISTORY OF CVA 2002 PULMONARY EMBOLISM 2006/HISTORY OF RECURRENT DVT PSORIATIC ARTHRITIS FIBROMYALGIA/CHRONIC BACK PAIN AND HIP PAIN OSTEOARTHRITIS ELEVATED FACTOR VIII HISTORY OF RENAL STONE PAST HISTORY OF MIGRAINE HEADACHE - RESOLVED WITH MENOPAUSE HYPOTHYROIDISM/STATUS POST THYROIDECTOMY FOR THYROID CANCER CONSTIPATION ABNORMAL PAP SMEAR - YESSI I WITH + HPV - FOLLOWS AT [facility] UNSPECIFIED URINARY CALCULUS UNSPECIFIED URINARY CALCULUS 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 DYSFUNCTION CHRONIC MIGRAINE WITHOUT AURA, WITH INTRACTABLE MIGRAINE, SO STATED, WITHOUT MENTION OF STATUS MIGRAINOSUS ESOPHAGEAL REFLUX NONDEPENDENT TOBACCO USE DISORDER INSOMNIA, UNSPECIFIED DEPRESSIVE DISORDER, NOT ELSEWHERE CLASSIFIED POSTMENOPAUSAL ATROPHIC VAGINITIS OTHER PULMONARY EMBOLISM AND INFARCTION VITAMIN D DEFICIENCY PLANTAR FASCIITIS ALLERGIES [id number] PERTUSSIS: ANAPHYLAXIS: ALLERGY ALL METALS: SEVERE SWELLING: ALLERGY NITROGLYCERIN: HYPOTENSION: SIDE EFFECTS SOCIAL HISTORY GENERAL: TOBACCO USE ARE YOU A:CURRENT SMOKER HOW MANY CIGARETTES A DAY DO YOU SMOKE?5 OR LESS HOW SOON AFTER YOU WAKE UP DO YOU SMOKE YOUR FIRST CIGARETTE?6-30 MIN HOW OFTEN DO YOU SMOKE CIGARETTES?EVERY DAY PATIENT COUNSELED ON THE DANGERS OF TOBACCO USE AND URGED TO QUIT:10/16/2016 ARE YOU INTERESTED IN QUITTING?READY TO QUIT PREVIOUS QUIT ATTEMPTS?YES, MORE THAN 6 MONTHS AGO. COUNSELED THE PATIENT ON TOBACCO USE, CESSATION [id number] ADDITIONAL FINDINGS: TOBACCO USER PT STILL SMOKES AN "OCCASSIONAL CIGARETTE" BUT HAS CUT DOWN ALOT. STILL TAKING CHANTIX LUNG CANCER SCREENING SMOKING STATUS:CURRENT SMOKER BMI CARE GOAL FOLLOW-UP ABOVE NORMAL BMI FOLLOW-UPDIETARY MANAGEMENT EDUCATION, GUIDANCE, AND COUNSELING ALCOHOL SCREENING DID YOU HAVE A DRINK CONTAINING ALCOHOL IN THE PAST YEAR?NO POINTS0 INTERPRETATIONNEGATIVE RECREATIONAL DRUG USE DRUG USE?NO CAFFEINE CAFFEINE USE?YES DAILY SEXUAL HX HAD SEX IN THE LAST 12 MONTHS (VAGINAL, ORAL, OR ANAL)?NO HIV / HEP-C SCREENING HIV TEST OFFERED TO PATIENT:YES DATE OFFERED:10/16/2016 TEST ACCEPTED:NO REASON:PATIENT DECLINED HEP-C TEST OFFERED TO PATIENT:YES DATE OFFERED:10/16/2016 TEST ACCEPTED:NO REASON:PATIENT DECLINED DIET: REGULAR. EXERCISE: NO REGULAR EXERCISE. MARITAL STATUS: . OTHERS AT HOME: SPOUSE. PETS: NONE. SABIANIST [id number] JAINISM LANGUAGE LANGUAGES SPOKEN:[place] EDUCATION LEVEL OF EDUCATION:FINISHED HIGH SCHOOL LEARNING BARRIERS / SPECIAL NEEDS BARRIERS TO LEARNING?NO HEARING IMPAIRED?NO VISION IMPAIRED?YES GLASSES COGNITIVELY IMPAIRED?NO READINESS TO LEARN?YES LEARNING PREFERENCES?YES ANY LEARNING CAPABILITIES PRESENT?YES EMOTIONAL BARRIERS?NO SPECIAL DEVICES?NO FARMWORKERS NEEDED?NO PAIN CLINIC PFS, CLERGY, PUBLIC HEALTH REFERRALS WAS THE PROVIDER NOTIFIED OF ANY PERTINENT INFO?YES PATIENT: ____. REVIEW OF SYSTEMS REVIEWED BY: PROVIDER: NAVID BENZ . CONSTITUTIONAL: ANY CHANGE IN YOUR MEDICAL CONDITION? NO . CHILLS NO . FEVER NO . INFECTION: DO YOU HAVE NEW INFECTIONS? NO . DO YOU HAVE HISTORY OF MRSA? NO . MUSCULOSKELETAL: ANY NEW PATTERNS OF PAIN OR NUMBNESS? NO . GASTROENTEROLOGY: ANY NEW CHANGE IN BOWEL CONTROL? NO . GENITOURINARY: ANY NEW CHANGE IN BLADDER CONTROL? NO . IS THERE A CHANCE YOU COULD BE ? NO . HEMATOLOGY/LYMPH: DO YOU TAKE ANY BLOOD THINNERS? (FOR EXAMPLE- COUMADIN, PLAVIX, AGGRENOX, PLATEL, PRADAXA, OR XARELTO) YES - MANAGED BY DR MARCELINO . WHEN WAS YOUR LAST DOSE? DATE: TIME: . NEUROLOGY: HAVE YOU FALLEN IN THE PAST 6 MONTHS? NO . ANY NEW EXTREMITY NUMBNESS OR WEAKNESS? NO . CARDIOLOGY: DO YOU HAVE A PACEMAKER OR DEFIBRILLATOR? NO . ANGINA UNDER CONTROL . RESPIRATORY: HAVE YOU BEEN SICK IN THE PAST WEEK? NO . FEVER NO . FLU LIKE SYMPTOMS? NO . COUGH NO . INTEGUMENTARY: DO YOU HAVE ANY RASHES OR OPEN SORES? NO . ALLERGIC/IMMUNO: ARE YOU ALLERGIC TO SHELLFISH OR IV DYE? NO . ANY NEW ALLERGIES? NO . PSYCHIATRIC: DO YOU HAVE THOUGHTS OF HURTING YOURSELF OR SOMEONE ELSE? NO . ARE YOU ABUSED, NEGLECTED, OR IN AN UNSAFE ENVIRONMENT? NO . ENDOCRINOLOGY: ARE YOU DIABETIC? NO . OTHER: DO YOU NEED ANY PRESCRIPTIONS? NO . IF YES, PLEASE LIST: ____ . ANY NEW PROBLEMS WITH YOUR MEDICATIONS? NO . WHEN DID YOU LAST EAT? ____ . WHEN DID YOU LAST DRINK? ____ . WHAT DID YOU LAST DRINK? ____ . NAME OF PERSON DRIVING YOU HOME? ____ . DO YOU HAVE ANY OTHER QUESTIONS OR CONCERNS NO . VITAL SIGNS WT 170.0 LBS, HT 63 IN, BMI 30.11 INDEX, BP 148/76 MM HG, HR 82 /MIN, RR 16 /MIN, TEMP 97.7 F, OXYGEN SAT % 93%, NA INITIALS SC 08:47, REVIEWED BY: [email or web address]. EXAMINATION GENERAL EXAMINATION: GENERAL APPEARANCE:COLOR PINK. PSYCHALERT , ORIENTED X 3 , APPROPRIATE MOOD AND AFFECT INTERMITTANTLY WEEPY AND UNDER EMOTIONAL DISTRESS. LUNGS:CLEAR TO AUSCULTATION BILATERALLY. HEART:HEART RATE REGULAR. MUSCULOSKELETAL:EXQUISITE TENDERNESS OVER RIGHT SIJ AND TROCANTER AND AT THE RIGHT PIRIFORMIS. .LEGS GENERALLY WEAK. GENERALIZED TENDERNESS ABOVE AND BELOW THE WAIST CONSTANT WITH FIBROMYALGIA. CANE USED FOR BALANCE. ASSESSMENTS SACROILIITIS - M46.1 (PRIMARY) HIP PAIN, BILATERAL - M25.551 CHRONIC PRESCRIPTION OPIATE USE - Z79.891 TREATMENT SACROILIITIS NOTES: DECREASE PAIN MED USE MUCH POSSIBLE IN THE WEEK BEFORE SURGERY. AFTER SURGERY MAY TAKE UP TO 6 TABS/DAY. CONSIDER FILLING OUT ADVANCED DIRECTIVE PAPERWORK - HEALTH CARE PROXY INFO GIVEN TO PATIENT. PREVENTIVE MEDICINE GAVE PT HCP MATERIALS AND EXPLAINED PAPERWORK PT VERBALIZES UNDERSTNADING. PROCEDURE CODES FA211 ESTABILISHED PATIENT [facility]AC[facility] CHARGE G8730 PAIN ASSESS POS TOOL F/U PLAN DOC G8427 DOC MEDS VERIFIED W/PT OR RE DISPOSITION & COMMUNICATION FOLLOW UP FEB (REASON: BACK PAIN) ELECTRONICALLY SIGNED BY ROGER NESBITT ON 01/02/2017 AT 09:09 AM EDT DISCLAIMER : THIS IS A VISIT SUMMARY EXTRACTED FROM THE [employer] CHART. IT IS NOT A COPY OF THE [employer] PROGRESS NOTE. GILMERD
== END ==
LOC: M PAIN 08:40
PROVIDERS: ATTEND Nurse Practitioner Family
DX: M46.1 Sacroiliitis, not elsewhere classified (principal); M25.551 Pain in right hip; Z79.891 Long term (current) use of opiate analgesic; Z79.899 Other long term (current) drug therapy; Z79.82 Long term (current) use of aspirin; F17.210 Nicotine dependence, cigarettes, uncomplicated; I25.10 Atherosclerotic heart disease of native coronary artery without angina pectoris; E03.9 Hypothyroidism, unspecified; E53.8 Deficiency of other specified B group vitamins

== ENCOUNTER → 2017-01-02 | Outpatient (CLI) | payer MEDICARE ==
[2017-01-02 14:07] LABS: BASO % 0.6 % (0.0-1.0); EOS # 0.1 K/mm3 (0.0-0.50); EOS % 1.6 % (0.0-3.0); LARGE UNSTAINED CELL # 0.2 K/mm3 (0.0-0.4); LARGE UNSTAINED CELL % 1.9 % (0.0-4.0); LYMPH % 36.6 % (24.0-44.0); MEAN CORPUSCULAR HEMOGLOBIN 32.4 pg (27.0-33.0); MEAN CORPUSCULAR HGB CONC 34.1 g/dl (32.0-36.5); MEAN CORPUSCULAR VOLUME 94.8 fl (80.0-96.0); MONO # 0.4 K/mm3 (0.0-0.8); MONO % 4.7 % (0.0-5.0); NEUTROPHILS # 4.5 K/mm3 (1.8-7.7); NEUTROPHILS % 54.6 % (36.0-66.0); PLATELET COUNT, AUTOMATED 297 k/mm3 (150-450); RED CELL DISTRIBUTION WIDTH 12.4 % (11.5-14.5); WHITE BLOOD COUNT 8.3 K/mm3 (4.0-10.0)
[2017-01-02 14:29] LABS: ANION GAP 3 MEQ/L (8-16); BLOOD UREA NITROGEN 9 MG/DL (7-18); CALCIUM LEVEL 9.1 MG/DL (8.5-10.1); CARBON DIOXIDE LEVEL 30 MEQ/L (21-32); CHLORIDE LEVEL 106 MEQ/L (98-107); CREATININE FOR GFR 0.62 MG/DL (0.55-1.02); GLOMERULAR FILTRATION RATE > 60.0 (>51); GLUCOSE, FASTING 130 MG/DL (70-105); POTASSIUM SERUM 4.2 MEQ/L (3.5-5.1); SODIUM LEVEL 139 MEQ/L (136-145)
== END ==
LOC: M LAB 13:03
PROVIDERS: ATTEND Orthopaedic Surgery
DX: Z01.818 Encounter for other preprocedural examination (principal); M24.151 Other articular cartilage disorders, right hip; M25.551 Pain in right hip

== ENCOUNTER 2017-01-24 21:23 | Emergency (ER) | payer MEDICARE ==
[~2017-01-24] VITALS: Ht 160 cm; Wt 78.0 kg
[~2017-01-24 21:23] MED LIST changes: -KEFL500C17 PO; -ZOFR8TAB4 PO
[2017-01-24] MEDS ORDERED: ZOFR8TAB4 PO (21:39)
[2017-01-24 22:41] LABS: BASO # 0.1 K/mm3 (0.0-0.2); BASO % 0.8 % (0.0-1.0); EOS # 0.1 K/mm3 (0.0-0.50); EOS % 1.4 % (0.0-3.0); LARGE UNSTAINED CELL # 0.2 K/mm3 (0.0-0.4); LARGE UNSTAINED CELL % 2.3 % (0.0-4.0); LYMPH # 3.2 K/mm3 (1.5-4.5); LYMPH % 34.3 % (24.0-44.0); MEAN CORPUSCULAR HEMOGLOBIN 32.5 pg (27.0-33.0); MEAN CORPUSCULAR VOLUME 95.6 fl (80.0-96.0); MONO # 0.5 K/mm3 (0.0-0.8); MONO % 5.6 % (0.0-5.0); NEUTROPHILS # 5.2 K/mm3 (1.8-7.7); NEUTROPHILS % 55.8 % (36.0-66.0); PLATELET COUNT, AUTOMATED 349 k/mm3 (150-450); RED CELL DISTRIBUTION WIDTH 13.1 % (11.5-14.5); WHITE BLOOD COUNT 9.3 K/mm3 (4.0-10.0)
[2017-01-24 22:46] LABS: INR 2.16
[2017-01-24 23:07] LABS: ALBUMIN 3.4 GM/DL (3.2-5.2); ALBUMIN/GLOBULIN RATIO 0.97 (1.00-1.93); ALKALINE PHOSPHATASE 114 U/L (45-117); ALT/SGPT 18 U/L (12-78); ANION GAP 9 MEQ/L (8-16); AST/SGOT 16 U/L (15-37); BILIRUBIN,DIRECT < 0.1 MG/DL (0.0-0.2); BILIRUBIN,TOTAL 0.4 MG/DL (0.2-1.0); BLOOD UREA NITROGEN 10 MG/DL (7-18); CALCIUM LEVEL 9.2 MG/DL (8.5-10.1); CARBON DIOXIDE LEVEL 31 MEQ/L (21-32); CHLORIDE LEVEL 103 MEQ/L (98-107); CREATININE FOR GFR 0.65 MG/DL (0.55-1.02); FREE T4 1.22 NG/DL (0.76-1.46); GLOMERULAR FILTRATION RATE > 60.0 (>51); GLUCOSE, FASTING 124 MG/DL (70-105); POTASSIUM SERUM 3.9 MEQ/L (3.5-5.1); SODIUM LEVEL 143 MEQ/L (136-145); TOTAL PROTEIN 6.9 GM/DL (6.4-8.2)
[2017-01-25] MEDS ORDERED: ONDANSETRON 4MG/2ML VIAL (J2405) IV ONE
[2017-01-25] MEDS ORDERED: MORPHINE 4 MG/ML 1ML SYRINGE IV PRN
[2017-01-25] MEDS ORDERED: ISOVUE-370 76% 100ML VIAL (Q9967) As Ordered ONE (00:02)
--- NOTE | 2017-01-25 01:10 | REPUSA ---
CLINICAL HISTORY: Dyspnea, exclude PE. TECHNIQUE: Multiple incremental axial, coronal and oblique images are obtained from the thoracic inle t to the upper abdomen. Intravenous contrast material was administered as per pulmonary embolism prot ocol. COMMENTS: Moderate paraseptal emphysema. Bilateral basilar atelectatic pulmonary changes. There is excellent opacification of pulmonary arterial system without evidence for pulmonary embolism . Aorta is of normal caliber without evidence for dissection or aneurysm. There is no evidence of pleural or parenchymal mass. There are no pleural effusions. There is no evid ence of hilar or mediastinal lymphadenopathy. The heart and great vessels are within normal limits. Images of the upper abdomen demonstrate no evidence of adrenal mass. The bony structures are free of lytic or blastic lesions. Prior thyroidectomy. Hepatomegaly with fatty liver infiltration. IMPRESSION: No evidence for pulmonary embolism. Hepatomegaly with fatty liver infiltration. Thyroidectomy. Cholecystectomy. Bilateral basilar atelectatic pulmonary changes. Thank you for your kind referral of this patient.
[2017-01-25 01:41] VITALS: BP 144/93
--- NOTE | 2017-01-25 08:09 | ECGEPIP ---
Stationary ECG Study [facility] - ED Test Date: 2017-01-24 Pat Name: WALTER WISE Department: Room: - Gender: F Tab Builder: SethiB: 1965 Requested By: AMARI Fitzpatrick Order Number: [id number] Reading MD: Gilbert Canales Measurements Intervals Russell Rate: 87 P: 68 IA: 154 QRS: 69 QRSD: 94 T: 50 QT: 387 QTc: 467 Interpretive Statements SINUS RHYTHM NSTTW ABNORMALITIES SIMILAR TO 04/03/16 Electronically Signed On 01-25-2017 8:09:30 EDT by Gilbert Canales
--- NOTE | 2017-01-25 11:27 | REP ---
AP PORTABLE CHEST: 01/24/2017. Comparison: 04/03/2016, 10/03/2012. Clinical history: Chest pain. Findings: The lungs are adequately inflated. Some minor basilar fibrotic change but no gross effusion, dense consolidation or mass. The heart, mediastinal and hilar contours are normal. No cardiomegaly or edema. Airway is intact. Bones unremarkable. No free air. Impression: 1. Minor basilar fibrotic change without cardiomegaly or edema. No definite effusion or acute infiltrate. Signed by Robert Nazario MD 01/25/2017 06:01 P
[2017-04-15] MEDS ORDERED: KEFL500C17 PO (20:15)
== END 2017-01-25 02:25 | disposition home or self-care (01) ==
LOC: M ED 21:23
DX: R07.89 Other chest pain (principal); R16.0 Hepatomegaly, not elsewhere classified; K76.0 Fatty (change of) liver, not elsewhere classified; Z90.49 Acquired absence of other specified parts of digestive tract; Z90.89 Acquired absence of other organs; Z79.82 Long term (current) use of aspirin; Z79.899 Other long term (current) drug therapy; Z88.8 Allergy status to other drugs, medicaments and biological substances; Z88.7 Allergy status to serum and vaccine; Z91.09 Other allergy status, other than to drugs and biological substances
CPT/HCPCS: 36415; 71010; 71275; 80048; 80076; 82550; 82553; 83690; 83880; 84439; 84443; 84484; 85025; 85610; 85730; 93005; 94760; 96374; 96375; 99285; J2405; Q9967

== ENCOUNTER 2017-01-27 08:11 | Outpatient (RCR) | payer MEDICARE ==
[~2017-01-27 08:11] MED LIST changes: +ZOFR8TAB4 PO
[2017-04-15] MEDS ORDERED: KEFL500C17 PO (20:15)
== END 2017-02-19 | disposition home or self-care (01) ==
LOC: M PT 08:11
PROVIDERS: ATTEND Orthopaedic Surgery
DX: Z51.89 Encounter for other specified aftercare (principal); Z47.89 Encounter for other orthopedic aftercare
CPT/HCPCS: 97110; 97161; G8978; G8979

== ENCOUNTER → 2017-02-26 | Outpatient (CLI) | payer MEDICARE ==
[~2017-02-26] MED LIST changes: +KEFL500C17 PO
[2017-02-26 08:19] LABS: BASO # 0.1 K/mm3 (0.0-0.2); BASO % 0.9 % (0.0-1.0); EOS # 0.2 K/mm3 (0.0-0.50); EOS % 2.5 % (0.0-3.0); LARGE UNSTAINED CELL # 0.2 K/mm3 (0.0-0.4); LARGE UNSTAINED CELL % 1.8 % (0.0-4.0); LYMPH # 3.3 K/mm3 (1.5-4.5); LYMPH % 32.2 % (24.0-44.0); MEAN CORPUSCULAR HEMOGLOBIN 32.3 pg (27.0-33.0); MEAN CORPUSCULAR HGB CONC 33.8 g/dl (32.0-36.5); MEAN CORPUSCULAR VOLUME 95.4 fl (80.0-96.0); MONO # 0.6 K/mm3 (0.0-0.8); MONO % 6.5 % (0.0-5.0); NEUTROPHILS # 5.4 K/mm3 (1.8-7.7); NEUTROPHILS % 56.1 % (36.0-66.0); PLATELET COUNT, AUTOMATED 304 k/mm3 (150-450); WHITE BLOOD COUNT 9.6 K/mm3 (4.0-10.0)
[2017-02-26 08:44] LABS: ALBUMIN 3.2 GM/DL (3.2-5.2); PERCENT SATURATION 27.4 % (13.2-45.0)
== END ==
LOC: M LAB 07:37
PROVIDERS: ATTEND Orthopaedic Surgery
DX: Z01.818 Encounter for other preprocedural examination (principal); M16.11 Unilateral primary osteoarthritis, right hip; D64.9 Anemia, unspecified; M25.561 Pain in right knee

== ENCOUNTER → 2017-02-26 | Outpatient (CLI) | payer MEDICARE ==
--- NOTE | 2017-03-15 00:59 | ECWPNPC ---
PATIENT NAME: WALTER WISE : 1965 GENDER: FEMALE VISIT DATE: 02/26/2017 DISCHARGE DATE: 02/26/17 09 VISIT LOCKED DATE TIME: PHYSICIAN: NAVID MILES RESOURCE: NAVID MILES REASON FOR APPOINTMENT 1. MEDS HISTORY OF PRESENT ILLNESS HISTORY OF PRESENT ILLNESS: PAIN THE PATIENT DESCRIBES THE PAIN... FALL RISK SCREENING: SCREENING :NO FALLS IN THE PAST YEAR TODAY'S VISIT: NOTES: HAD RIGHT HIP LAPRACOPIC SURGERY WITH DR KAREN BEAL - HAS NO IMPROVEMET AND IS NOW HAVING NUMBNESS AND BURNING OVER THE RIGHT THIGH. IS BEING SCHEDULED FOR REPLACEMENT IN 04/13/17 .RATES PAIN LEVEL TODAY 3/10. NOTES PAIN IS WORSE WITH STANDING OR WALKING REPORTS IS HAVING NO ADVERSE RESPONSE TO HER MEDS AND THAT THEY WORK TO REDUCE HER TOTAL PAIN AND ALLOW HER TO FUNCTION. CURRENT MEDICATIONS TAKING ASPIR-81 81 MG TABLET DELAYED RELEASE 1 TABLET ORALLY ONCE A DAY TAKING LIPITOR 80 MG TABLET 1 TABLET ORALLY ONCE A DAY TAKING XARELTO 20 MG TABLET 1 TABLET ORALLY ONCE A DAY TAKING METOPROLOL SUCCINATE ER 100 MG TABLET EXTENDED RELEASE 24 HOUR 1 TABLET ORALLY ONCE DAILY TAKING CLOPIDOGREL BISULFATE 75 MG TABLET 1 TABLET ORALLY ONCE A DAY TAKING FLONASE ALLERGY RELIEF 50 MCG/ACT SUSPENSION 1 SPRAY IN EACH NOSTRIL NASALLY ONCE A DAY NEEDED TAKING LEVOTHROID 100 MCG TABLET 1 TABLET EVERY MORNING ON AN EMPTY STOMACH ORALLY ONCE A DAY FOR HYPOTHYROIDISM TAKING ZOFRAN ODT 8 MG TABLET DISPERSIBLE 1 TAB(S) ORALLY TID WHEN NEEDED FOR NAUSEA TAKING BIOTIN 5000 MCG CAPSULE 1 CAPSULE ORALLY TWICE DAILY TAKING MULTIVITAMINS 1 TAB CAPSULE 1 ORALLY DAILY TAKING CYCLOBENZAPRINE HCL 10 MG TABLET 1 TABLET ORALLY THREE TIMES A DAY TAKING OXYCODONE HCL 15 MG TABLET 1 TABLET NEEDED ORALLY EVERY 4 HRS PRN PAIN MDD=5 CHRONIC PAIN, NOTES: 0800 TAKING IRON 325 (65 FE) MG TABLET 1 TABLET ORALLY BID NOT-TAKING CHANTIX STARTING MONTH NIKI 0.5 MG X 11 & 1 MG X 42 TABLET DIRECTED ORALLY DAILY NOT-TAKING VITAMIN B-12 1000 MCG/ML INJECTION 1 SHOT (1 ML) IM ONCE MONTHLY NOT-TAKING AMLODIPINE BESYLATE 2.5 MG TABLET 1 TABLET ORALLY ONCE A DAY NOT-TAKING XANAX 0.25 MG TABLET 1 TABLET ORALLY QHS (MDD;1) UNKNOWN ZOFRAN 4 MG TABLET 2 TABLETS ORALLY 3 TIMES A DAY NEEDED, NOTES: 2DAYS UNKNOWN MILK OF MAGNESIA 1200 MG/15ML SUSPENSION 2 TEASPOONS ORALLY NEEDED, NOTES: NOT LATELY UNKNOWN ATENOLOL 25 25MG TABLET 1 TAB(S) ORALLY DAILY (CARDIO.) UNKNOWN XANAX 1 MG TABLET 1 TABLET ORALLY ON ARRIVAL TO CLINIC FOR INJECTION MDD=1 UNKNOWN BEANO TABLET 3-4 TABS ORALLY DAILY NEEDED UNKNOWN GAS-X 125 MG CAPSULE 2 TABS ORALLY DAILY IN AFTERNOON UNKNOWN PHENERGAN 25MG TABS SOLUTION 1 TO 1 1/2 TABS INJECTION MAX DOSE 3 DAILY NEEDED UNKNOWN SOMA 350 MG TABLET 1 TABLET ORALLY THREE TIMES A DAY ([facility]) UNKNOWN DRISDOL 50,000 UNITS TABLET 1 TAB WITH MEAL ORAL WEEKLY UNKNOWN ESTRADIOL 0.1 MG/GM CREAM 0.5 GM VAGINAL TWICE A WEEK MEDICATION LIST REVIEWED AND RECONCILED WITH THE PATIENT PAST MEDICAL HISTORY WI/CABG/UNSTABLE ANGINA/MULTIPLE STENT PLACEMENTS RCA 2000 2001 2003 2004 2009 =- [facility] HISTORY OF CVA 2002 PULMONARY EMBOLISM 2006/HISTORY OF RECURRENT DVT PSORIATIC ARTHRITIS FIBROMYALGIA/CHRONIC BACK PAIN AND HIP PAIN OSTEOARTHRITIS ELEVATED FACTOR VIII HISTORY OF RENAL STONE PAST HISTORY OF MIGRAINE HEADACHE - RESOLVED WITH MENOPAUSE HYPOTHYROIDISM/STATUS POST THYROIDECTOMY FOR THYROID CANCER CONSTIPATION ABNORMAL PAP SMEAR - YESSI I WITH + HPV - FOLLOWS AT [facility] UNSPECIFIED URINARY CALCULUS UNSPECIFIED URINARY CALCULUS 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 DYSFUNCTION CHRONIC MIGRAINE WITHOUT AURA, WITH INTRACTABLE MIGRAINE, SO STATED, WITHOUT MENTION OF STATUS MIGRAINOSUS ESOPHAGEAL REFLUX NONDEPENDENT TOBACCO USE DISORDER INSOMNIA, UNSPECIFIED DEPRESSIVE DISORDER, NOT ELSEWHERE CLASSIFIED POSTMENOPAUSAL ATROPHIC VAGINITIS OTHER PULMONARY EMBOLISM AND INFARCTION VITAMIN D DEFICIENCY PLANTAR FASCIITIS ALLERGIES [id number] PERTUSSIS: ANAPHYLAXIS: ALLERGY ALL METALS: SEVERE SWELLING: ALLERGY NITROGLYCERIN: HYPOTENSION: SIDE EFFECTS SURGICAL HISTORY 1982 1985 TRIPLE BYPASS 2004 STERNOTOMY WIRE REMOVAL 2006 REMOVAL OF ABDOMINAL ADHESIONS 2008 THYROIDECTOMY 2008 LAPAROSCOPIC CHOLECYSTECTOMY 2009 FAUSTINA FUNDOPLICATION 2009 SACRAL TUMOR REMOVED 08/05 COLPOSCOPY [facility], THEN [facility] - DR CENTENO 03/05 STENT IN HEART IN [place] 01/2015 7 STENTS AND A BALOON AT [facility] 02/2015 3 CARDIAC STENTS 11/01/2015 LABRIA REPAIR AND SCRAPPING 12/2016 SOCIAL HISTORY GENERAL: TOBACCO USE ARE YOU A:CURRENT SMOKER HOW OFTEN DO YOU SMOKE CIGARETTES?EVERY DAY HOW SOON AFTER YOU WAKE UP DO YOU SMOKE YOUR FIRST CIGARETTE?6-30 MIN HOW MANY CIGARETTES A DAY DO YOU SMOKE?5 OR LESS ARE YOU INTERESTED IN QUITTING?READY TO QUIT ADDITIONAL FINDINGS: TOBACCO USER PT STILL SMOKES AN "OCCASSIONAL CIGARETTE" BUT HAS CUT DOWN ALOT. STILL TAKING CHANTIX PATIENT COUNSELED ON THE DANGERS OF TOBACCO USE AND URGED TO QUIT:01/26/2017 COUNSELED THE PATIENT ON TOBACCO USE, CESSATION [id number]/14/2017 PREVIOUS QUIT ATTEMPTS?YES, MORE THAN 6 MONTHS AGO. LUNG CANCER SCREENING SMOKING STATUS:CURRENT SMOKER BMI CARE GOAL FOLLOW-UP ABOVE NORMAL BMI FOLLOW-UPDIETARY MANAGEMENT EDUCATION, GUIDANCE, AND COUNSELING ALCOHOL SCREENING DID YOU HAVE A DRINK CONTAINING ALCOHOL IN THE PAST YEAR?NO POINTS0 INTERPRETATIONNEGATIVE RECREATIONAL DRUG USE DRUG USE?NO CAFFEINE CAFFEINE USE?YES DAILY SEXUAL HX HAD SEX IN THE LAST 12 MONTHS (VAGINAL, ORAL, OR ANAL)?NO HIV / HEP-C SCREENING HIV TEST OFFERED TO PATIENT:YES DATE OFFERED:10/16/2016 TEST ACCEPTED:NO HEP-C TEST OFFERED TO PATIENT:YES DATE OFFERED:10/16/2016 REASON:PATIENT DECLINED TEST ACCEPTED:NO REASON:PATIENT DECLINED DIET: REGULAR. EXERCISE: NO REGULAR EXERCISE. MARITAL STATUS: . OTHERS AT HOME: SPOUSE. PETS: NONE. FAITH [id number] RASTAFARI LANGUAGE LANGUAGES SPOKEN:MACEDONIAN EDUCATION LEVEL OF EDUCATION:FINISHED HIGH SCHOOL LEARNING BARRIERS / SPECIAL NEEDS BARRIERS TO LEARNING?NO HEARING IMPAIRED?NO VISION IMPAIRED?YES GLASSES COGNITIVELY IMPAIRED?NO READINESS TO LEARN?YES LEARNING PREFERENCES?YES ANY LEARNING CAPABILITIES PRESENT?YES EMOTIONAL BARRIERS?NO SPECIAL DEVICES?NO ASPHALT ROLLER PERSON NEEDED?NO PAIN CLINIC PFS, CLERGY, PUBLIC HEALTH REFERRALS PFS REFERRAL NEEDED?NO CLERGY REFERRAL NEEDED?NO PUBLIC HEALTH REFERRAL NEEDED?NO WAS THE PROVIDER NOTIFIED OF ANY PERTINENT INFO?YES HAS THE PATIENT BEEN EDUCATED REGARDING HIS/HER PLAN OF CARE?YES HAS THE PATIENT BEEN EDUCATED REGARDING PAIN, THE RISK FOR PAIN, THE IMPORTANCE OF EFFECTIVE PAIN MANAGEMENT, AND THE PAIN ASSESSMENT PROCESS?YES PATIENT: ____. HOSPITALIZATION/MAJOR DIAGNOSTIC PROCEDURE RELATED TO SURGERIES AND CHILDBIRTH REVIEW OF SYSTEMS REVIEWED BY: PROVIDER: NAVID BENZ . CONSTITUTIONAL: ANY CHANGE IN YOUR MEDICAL CONDITION? NO . CHILLS NO . FEVER NO . INFECTION: DO YOU HAVE NEW INFECTIONS? NO . DO YOU HAVE HISTORY OF MRSA? NO . MUSCULOSKELETAL: ANY NEW PATTERNS OF PAIN OR NUMBNESS? NO . GASTROENTEROLOGY: ANY NEW CHANGE IN BOWEL CONTROL? NO . GENITOURINARY: ANY NEW CHANGE IN BLADDER CONTROL? NO . IS THERE A CHANCE YOU COULD BE ? NO . HEMATOLOGY/LYMPH: DO YOU TAKE ANY BLOOD THINNERS? (FOR EXAMPLE- COUMADIN, PLAVIX, AGGRENOX, PLATEL, PRADAXA, OR XARELTO) YES, XARELTO AND PLAVIX . WHEN WAS YOUR LAST DOSE? DATE: TIME: . NEUROLOGY: HAVE YOU FALLEN IN THE PAST 6 MONTHS? NO . ANY NEW EXTREMITY NUMBNESS OR WEAKNESS? NO . CARDIOLOGY: DO YOU HAVE A PACEMAKER OR DEFIBRILLATOR? NO . RESPIRATORY: HAVE YOU BEEN SICK IN THE PAST WEEK? NO . FEVER NO . FLU LIKE SYMPTOMS? NO . COUGH NO . INTEGUMENTARY: DO YOU HAVE ANY RASHES OR OPEN SORES? NO . ALLERGIC/IMMUNO: ARE YOU ALLERGIC TO SHELLFISH OR IV DYE? NO . ANY NEW ALLERGIES? NO . PSYCHIATRIC: DO YOU HAVE THOUGHTS OF HURTING YOURSELF OR SOMEONE ELSE? NO . ARE YOU ABUSED, NEGLECTED, OR IN AN UNSAFE ENVIRONMENT? NO . ENDOCRINOLOGY: ARE YOU DIABETIC? NO . OTHER: DO YOU NEED ANY PRESCRIPTIONS? NO . IF YES, PLEASE LIST: ____ . ANY NEW PROBLEMS WITH YOUR MEDICATIONS? NO . WHEN DID YOU LAST EAT? ____ . WHEN DID YOU LAST DRINK? ____ . WHAT DID YOU LAST DRINK? ____ . NAME OF PERSON DRIVING YOU HOME? ____ . DO YOU HAVE ANY OTHER QUESTIONS OR CONCERNS NO . VITAL SIGNS WT 170 LBS, HT 63 IN, BMI 30.11 INDEX, BP 125/83 MM HG, HR 69 /MIN, RR 16 /MIN, TEMP 97.0 F, OXYGEN SAT % 96%, NA INITIALS AW 0922, REVIEWED BY: CS. EXAMINATION GENERAL EXAMINATION: GENERAL APPEARANCE:COLOR PINK. PSYCHALERT , ORIENTED X 3 , APPROPRIATE MOOD AND AFFECT INTERMITTANTLY WEEPY AND UNDER EMOTIONAL DISTRESS. LUNGS:CLEAR TO AUSCULTATION BILATERALLY. HEART:HEART RATE REGULAR. MUSCULOSKELETAL:EXQUISITE TENDERNESS OVER RIGHT SIJ AND TROCANTER AND AT THE RIGHT PIRIFORMIS. .LEGS GENERALLY WEAK. GENERALIZED TENDERNESS ABOVE AND BELOW THE WAIST CONSTANT WITH FIBROMYALGIA. CANE USED FOR BALANCE. ASSESSMENTS SACROILIITIS - M46.1 (PRIMARY) CHRONIC PRESCRIPTION OPIATE USE - Z79.891 RIGHT HIP PAIN - M25.551 TREATMENT SACROILIITIS REFILL OXYCODONE HCL TABLET, 15 MG, 1 TABLET NEEDED, ORALLY, EVERY 4 HRS PRN PAIN MDD=5 CHRONIC PAIN, 30 DAY(S), 150, REFILLS 0, NOTES: 0800 NOTES: CONTINUE CURRENT MEDS. USE OXYCODONE LITTLE POSSIBLE. CLINICAL NOTES: ISTOP REGISTRY REVIEWED AND DEMNOSTRATES COMPLLIANCE.(#[id number]) BRINGS IN MEDICATIONS WHICH IS APPROPRIATE FOR WHAT WAS DISPENSED. RECENT URINE TOXICOLOGY REVIEWED. NO UNAUTHORIZED MEDICATIONS. NO ILLICIT SUBSTANCES AND PRESCRIBED MEDICATIONS WERE PRESENT. PROCEDURE CODES FA211 ESTABILISHED PATIENT [facility] F[facility] CHARGE G8730 PAIN ASSESS POS TOOL F/U PLAN DOC G8427 DOC MEDS VERIFIED W/PT OR RE DISPOSITION & COMMUNICATION FOLLOW UP EARLY MAY (REASON: BACK/HIP PAIN) ELECTRONICALLY SIGNED BY ROGER NESBITT ON 03/14/2017 AT 02:57 PM EDT DISCLAIMER : THIS IS A VISIT SUMMARY EXTRACTED FROM THE [facility] CH[facility]. IT IS NOT A COPY OF THE [employer] PROGRESS NOTE. GILMERD
== END ==
LOC: M PAIN 08:40
PROVIDERS: ATTEND Nurse Practitioner Family
DX: M46.1 Sacroiliitis, not elsewhere classified (principal); M25.551 Pain in right hip; E53.8 Deficiency of other specified B group vitamins; E03.9 Hypothyroidism, unspecified; I25.2 Old myocardial infarction; F17.210 Nicotine dependence, cigarettes, uncomplicated; Z79.82 Long term (current) use of aspirin; Z79.899 Other long term (current) drug therapy; Z79.891 Long term (current) use of opiate analgesic; Z88.7 Allergy status to serum and vaccine; Z88.8 Allergy status to other drugs, medicaments and biological substances; Z91.09 Other allergy status, other than to drugs and biological substances; Z86.711 Personal history of pulmonary embolism
CPT/HCPCS: 36415; 82040; 82728; 83550; 85025; G0463

== ENCOUNTER → 2017-03-12 | Outpatient (CLI) | payer MEDICARE ==
--- NOTE | 2017-03-12 14:10 | REP ---
PA and lateral chest: Comparisons are 04/03/2016 and 01/27/2012. The lung sheridan are clear. The cardiac size is normal The sarkis, mediastinum, and bony thorax are unremarkable. Impression: Signed by Dimitry Reyes MD 03/12/2017 02:01 P
== END ==
LOC: M LRY 11:00
PROVIDERS: ATTEND Family Medicine
DX: J18.1 Lobar pneumonia, unspecified organism (principal)
CPT/HCPCS: 71020; G0463

== ENCOUNTER → 2017-04-01 | Outpatient (REF) | payer MEDICARE ==
[2017-04-01 12:39] LABS: MEAN CORPUSCULAR HEMOGLOBIN 30.9 pg (27.0-33.0); MEAN CORPUSCULAR HGB CONC 33.2 g/dl (32.0-36.5); MEAN CORPUSCULAR VOLUME 93.1 fl (80.0-96.0); RED CELL DISTRIBUTION WIDTH 12.7 % (11.5-14.5); WHITE BLOOD COUNT 8.3 10^3/uL (4.0-10.0)
[2017-04-01 13:03] LABS: ALBUMIN 3.6 GM/DL (3.2-5.2); ALBUMIN/GLOBULIN RATIO 0.97 (1.00-1.93); ALKALINE PHOSPHATASE 135 U/L (45-117); ALT/SGPT 27 U/L (12-78); ANION GAP 6 MEQ/L (8-16); AST/SGOT 21 U/L (15-37); BILIRUBIN,TOTAL 0.5 MG/DL (0.2-1.0); BLOOD UREA NITROGEN 10 MG/DL (7-18); CALCIUM LEVEL 9.9 MG/DL (8.5-10.1); CARBON DIOXIDE LEVEL 31 MEQ/L (21-32); CHLORIDE LEVEL 102 MEQ/L (98-107); CREATININE FOR GFR 0.56 MG/DL (0.55-1.02); GLOMERULAR FILTRATION RATE > 60.0 (>51); GLUCOSE, FASTING 95 MG/DL (70-105); POTASSIUM SERUM 4.3 MEQ/L (3.5-5.1); SODIUM LEVEL 139 MEQ/L (136-145); TOTAL PROTEIN 7.3 GM/DL (6.4-8.2)
[2017-04-01 13:07] LABS: INR 1.03
== END ==
LOC: M SFHCLERA 09:38
PROVIDERS: ATTEND Family Medicine
DX: Z01.818 Encounter for other preprocedural examination (principal); M16.11 Unilateral primary osteoarthritis, right hip; Z79.01 Long term (current) use of anticoagulants
CPT/HCPCS: 80053; 85027; 85610; 85730; G0463

== ENCOUNTER 2017-05-18 08:51 | Outpatient (RCR) | payer MEDICARE | END 2017-05-21 | LOC: M PT 08:51 | PROVIDERS: ATTEND Orthopaedic Surgery | DX: Z51.89 Encounter for other specified aftercare (principal); M25.559 Pain in unspecified hip; M24.151 Other articular cartilage disorders, right hip; Z96.641 Presence of right artificial hip joint | CPT/HCPCS: 97110; 97140; 97161; G8978; G8979 ==

== ENCOUNTER 2017-05-25 10:18 | Outpatient (RCR) | payer MEDICARE | END 2017-06-21 | LOC: M PT 10:18 | DX: Z51.89 Encounter for other specified aftercare (principal); M24.151 Other articular cartilage disorders, right hip; Z96.641 Presence of right artificial hip joint; M25.559 Pain in unspecified hip | CPT/HCPCS: 97110 ==

== ENCOUNTER → 2017-06-08 | Outpatient (REF) | payer MEDICARE | LOC: M SFHCLERA 16:53 | PROVIDERS: ATTEND Physician Assistant | DX: J02.9 Acute pharyngitis, unspecified (principal) ==

== ENCOUNTER → 2017-06-17 | Outpatient (CLI) | payer MEDICARE | LOC: M PAIN 09:15 | DX: M46.1 Sacroiliitis, not elsewhere classified (principal); I25.810 Atherosclerosis of coronary artery bypass graft(s) without angina pectoris; I25.2 Old myocardial infarction; L40.52 Psoriatic arthritis mutilans; E03.9 Hypothyroidism, unspecified; K21.9 Gastro-esophageal reflux disease without esophagitis; F17.200 Nicotine dependence, unspecified, uncomplicated; F32.9 Major depressive disorder, single episode, unspecified; G47.00 Insomnia, unspecified; L23.0 Allergic contact dermatitis due to metals; Z88.7 Allergy status to serum and vaccine; Z88.8 Allergy status to other drugs, medicaments and biological substances; Z79.01 Long term (current) use of anticoagulants; Z79.899 Other long term (current) drug therapy; Z96.641 Presence of right artificial hip joint | CPT/HCPCS: G0463 ==

== ENCOUNTER → 2017-06-29 | Outpatient (REF) | payer MEDICARE | LOC: M SFHCLERA 09:59 | DX: E03.9 Hypothyroidism, unspecified (principal) | CPT/HCPCS: 84443 ==

== ENCOUNTER → 2017-07-22 | Outpatient (REF) | LOC: M SMT 13:03 | DX: M54.5 Low back pain (principal) ==

== ENCOUNTER → 2017-07-29 | Outpatient (CLI) | payer MEDICARE ==
[2017-07-29 11:01] LABS: BASO # 0.1 10^3/uL (0.0-0.2); BASO % 0.5 % (0.0-1.0); EOS # 0.1 10^3/uL (0.0-0.50); HEMATOCRIT 44.4 % (36.0-47.0); HEMOGLOBIN 14.7 g/dl (12.0-16.0); IMMATURE GRANULOCYTE % 0.3 % (0-0); MEAN CORPUSCULAR HEMOGLOBIN 29.6 pg (27.0-33.0); MEAN CORPUSCULAR HGB CONC 33.1 g/dl (32.0-36.5); MEAN CORPUSCULAR VOLUME 89.5 fl (80.0-96.0); MONO # 0.7 10^3/uL (0.0-0.8); MONO % 6.8 % (0.0-5.0); NEUTROPHILS # 6.8 10^3/uL (1.8-7.7); NEUTROPHILS % 63.4 % (36.0-66.0); PLATELET COUNT, AUTOMATED 321 10^3/uL (150-450); RED BLOOD COUNT 4.96 10^6/uL (4.00-5.40); RED CELL DISTRIBUTION WIDTH 13.3 % (11.5-14.5); WHITE BLOOD COUNT 10.7 10^3/uL (4.0-10.0)
[2017-07-29 11:22] LABS: ALBUMIN 3.4 GM/DL (3.2-5.2)
[2017-07-29 11:22] LABS: FERRITIN 17 NG/ML (8-252); IRON (FE) 91 UG/DL (50-170); PERCENT SATURATION 23.3 % (13.2-45.0); TOTAL IRON BINDING CAPACITY 390 UG/DL (250-450)
== END ==
LOC: M LAB 10:18
DX: Z01.818 Encounter for other preprocedural examination (principal); M25.552 Pain in left hip; M16.12 Unilateral primary osteoarthritis, left hip; D63.8 Anemia in other chronic diseases classified elsewhere
CPT/HCPCS: 82040

== ENCOUNTER → 2017-10-05 | Outpatient (REF) | payer MEDICARE ==
[2017-10-05 13:57] LABS: ESTIMATED AVERAGE GLUCOSE 120 MG/DL (60-110); HEMOGLOBIN A1c 5.8 %
== END ==
LOC: M SFHCLERA 09:42
DX: R73.9 Hyperglycemia, unspecified (principal); F17.200 Nicotine dependence, unspecified, uncomplicated; Z23 Encounter for immunization
CPT/HCPCS: 83036

== ENCOUNTER → 2017-11-12 | Outpatient (CLI) | payer MEDICARE ==
[2017-11-12 08:28] LABS: BASO # 0.1 10^3/uL (0.0-0.2); BASO % 0.7 % (0.0-1.0); EOS # 0.2 10^3/uL (0.0-0.50); EOS % 1.8 % (0.0-3.0); HEMATOCRIT 42.1 % (36.0-47.0); HEMOGLOBIN 14.3 g/dl (12.0-15.5); IMMATURE GRANULOCYTE % 0.2 % (0-3.0); LYMPH # 3.3 10^3/uL (1.5-4.5); LYMPH % 39.9 % (24.0-44.0); MEAN CORPUSCULAR HEMOGLOBIN 31.8 pg (27.0-33.0); MEAN CORPUSCULAR VOLUME 93.6 fl (80.0-96.0); MONO # 0.6 10^3/uL (0.0-0.8); MONO % 7.9 % (0.0-5.0); NEUTROPHILS % 49.5 % (36.0-66.0); PLATELET COUNT, AUTOMATED 272 10^3/uL (150-450); RED CELL DISTRIBUTION WIDTH 13.4 % (11.5-14.5); WHITE BLOOD COUNT 8.1 10^3/uL (4.0-10.0)
[2017-11-12 08:31] LABS: APPEARANCE, URINE CLEAR (CLEAR); BACTERIA, URINE AUTO NEGATIVE (NEGATIVE); BILIRUBIN, URINE AUTO NEGATIVE (NEGATIVE); BLOOD, URINE BLOOD 1+ (NEGATIVE); COLOR, URINE STRAW (YELLOW); GLUCOSE, URINE (UA) AUTO NEGATIVE (NEGATIVE); KETONE, URINE AUTO NEGATIVE (NEGATIVE); LEUKOCYTE ESTERASE, URINE AUTO NEGATIVE (NEGATIVE); NITRITE, URINE AUTO NEGATIVE (NEGATIVE); PROTEIN, URINE AUTO NEGATIVE (NEGATIVE); RBC, URINE AUTO 2 /HPF (0-3); SPECIFIC GRAVITY URINE AUTO 1.006 (1.002-1.035); SQUAMOUS EPITHELIAL CELL UR AU 1 /HPF (0-6); UROBILINOGEN, URINE AUTO 0.2 mg/dL (0.0-2.0); WBC, URINE AUTO 1 /HPF (0-3)
[2017-11-12 08:53] LABS: ALBUMIN 3.4 GM/DL (3.2-5.2); ANION GAP 5 MEQ/L (8-16); BLOOD UREA NITROGEN 8 MG/DL (7-18); CALCIUM LEVEL 8.7 MG/DL (8.5-10.1); CARBON DIOXIDE LEVEL 31 MEQ/L (21-32); CHLORIDE LEVEL 107 MEQ/L (98-107); CREATININE FOR GFR 0.63 MG/DL (0.55-1.30); FERRITIN 12 NG/ML (8-252); GLOMERULAR FILTRATION RATE > 60.0 (>51); GLUCOSE, FASTING 98 MG/DL (70-100); IRON (FE) 33 UG/DL (50-170); PERCENT SATURATION 9.2 % (13.2-45.0); POTASSIUM SERUM 4.1 MEQ/L (3.5-5.1); SODIUM LEVEL 143 MEQ/L (136-145); TOTAL IRON BINDING CAPACITY 358 UG/DL (250-450)
[2017-11-19 00:06] LABS: TITANIUM LEVEL SERUM/PLASMA <10.0 ng/mL (<10.0)
== END ==
LOC: M LAB 07:49
DX: Z01.818 Encounter for other preprocedural examination (principal); M16.12 Unilateral primary osteoarthritis, left hip; M25.559 Pain in unspecified hip; D63.8 Anemia in other chronic diseases classified elsewhere
CPT/HCPCS: 82040

== ENCOUNTER 2017-12-16 10:14 | Outpatient (RCR) | payer MEDICARE | END 2017-12-19 | LOC: M PT 10:14 | DX: Z51.89 Encounter for other specified aftercare (principal); M25.552 Pain in left hip; Z96.642 Presence of left artificial hip joint | CPT/HCPCS: 97110 ==

== ENCOUNTER → 2017-12-22 | Outpatient (CLI) | payer MEDICARE | LOC: M PAIN 08:30 | DX: M46.1 Sacroiliitis, not elsewhere classified (principal); M25.551 Pain in right hip; I25.2 Old myocardial infarction; M19.90 Unspecified osteoarthritis, unspecified site; E03.9 Hypothyroidism, unspecified; G43.909 Migraine, unspecified, not intractable, without status migrainosus; F32.9 Major depressive disorder, single episode, unspecified; Z79.01 Long term (current) use of anticoagulants; Z79.899 Other long term (current) drug therapy; Z88.7 Allergy status to serum and vaccine; Z88.8 Allergy status to other drugs, medicaments and biological substances; Z91.09 Other allergy status, other than to drugs and biological substances; Z96.641 Presence of right artificial hip joint; Z96.642 Presence of left artificial hip joint; Z86.73 Personal history of transient ischemic attack (TIA), and cerebral infarction without residual deficits; Z87.891 Personal history of nicotine dependence | CPT/HCPCS: G0463 ==

== ENCOUNTER 2017-12-24 12:08 | Outpatient (RCR) | payer MEDICARE | END 2018-01-19 | LOC: M PT 12:08 | DX: Z51.89 Encounter for other specified aftercare (principal); Z96.642 Presence of left artificial hip joint | CPT/HCPCS: 97110 ==

== ENCOUNTER → 2018-01-20 | Outpatient (CLI) | payer MEDICARE | LOC: M PAIN 09:30 | DX: M46.1 Sacroiliitis, not elsewhere classified (principal); M25.551 Pain in right hip; E03.9 Hypothyroidism, unspecified; G43.909 Migraine, unspecified, not intractable, without status migrainosus; F32.9 Major depressive disorder, single episode, unspecified; M19.90 Unspecified osteoarthritis, unspecified site; I25.2 Old myocardial infarction; F17.200 Nicotine dependence, unspecified, uncomplicated; Z79.01 Long term (current) use of anticoagulants; Z79.899 Other long term (current) drug therapy; Z88.7 Allergy status to serum and vaccine; Z88.8 Allergy status to other drugs, medicaments and biological substances; Z91.09 Other allergy status, other than to drugs and biological substances; Z95.5 Presence of coronary angioplasty implant and graft; Z86.73 Personal history of transient ischemic attack (TIA), and cerebral infarction without residual deficits; Z86.79 Personal history of other diseases of the circulatory system; Z86.711 Personal history of pulmonary embolism; Z96.643 Presence of artificial hip joint, bilateral | CPT/HCPCS: G0463 ==

== ENCOUNTER 2018-01-21 09:17 | Outpatient (RCR) | payer MEDICARE | END 2018-02-19 | LOC: M PT 01-25 07:21 | DX: Z96.642 Presence of left artificial hip joint (principal); Z51.89 Encounter for other specified aftercare | CPT/HCPCS: 97110 ==

== ENCOUNTER → 2018-03-15 | Outpatient (REF) | payer MEDICARE, MEDICAID ==
[2018-03-15 18:39] LABS: HEMATOCRIT 50.4 % (36.0-47.0); HEMOGLOBIN 16.9 g/dl (12.0-15.5); MEAN CORPUSCULAR HEMOGLOBIN 30.9 pg (27.0-33.0); MEAN CORPUSCULAR HGB CONC 33.5 g/dl (32.0-36.5); MEAN CORPUSCULAR VOLUME 92.1 fl (80.0-96.0); PLATELET COUNT, AUTOMATED 362 10^3/uL (150-450); RED BLOOD COUNT 5.47 10^6/uL (4.00-5.40); RED CELL DISTRIBUTION WIDTH 12.9 % (11.5-14.5); WHITE BLOOD COUNT 9.8 10^3/uL (4.0-10.0)
[2018-03-15 19:00] LABS: APPEARANCE, URINE CLOUDY (CLEAR); BACTERIA, URINE AUTO 1+ (NEGATIVE); BILIRUBIN, URINE AUTO NEGATIVE (NEGATIVE); BLOOD, URINE BLOOD NEGATIVE (NEGATIVE); COLOR, URINE YELLOW (YELLOW); GLUCOSE, URINE (UA) AUTO NEGATIVE (NEGATIVE); KETONE, URINE AUTO TRACE mg/dL (NEGATIVE); LEUKOCYTE ESTERASE, URINE AUTO NEGATIVE (NEGATIVE); MUCUS, URINE SMALL (NEGATIVE); NITRITE, URINE AUTO NEGATIVE (NEGATIVE); PROTEIN, URINE AUTO 1+ mg/dL (NEGATIVE); RBC, URINE AUTO 1 /HPF (0-3); SPECIFIC GRAVITY URINE AUTO 1.017 (1.002-1.035); SQUAMOUS EPITHELIAL CELL UR AU 4 /HPF (0-6); UROBILINOGEN, URINE AUTO 0.2 mg/dL (0.0-2.0); WBC, URINE AUTO 2 /HPF (0-3)
[2018-03-15 19:08] LABS: THYROID STIMULATING HORMONE 0.664 uIU/ML (0.358-3.740)
[2018-03-15 19:08] LABS: COMPLEMENT C3 122 MG/DL (90-180)
[2018-03-16 11:47] LABS: DRVV SCREEN 72.3 SEC; PTT LUPUS TYPE ANTICOAG SCREEN 1.8 (0-1.2)
[2018-03-16 11:53] LABS: DRVV CONFIRM 53.7 SEC; LUPUS CONFIRM RATIO 1.4
[2018-03-16 11:56] LABS: NORMALIZED RATIO 1.29 (0.00-1.20)
[2018-03-18 00:10] LABS: ANA (HEP2) Negative (.); CARDIOLIPIN IGA ANTIBODY <9 APL U/mL (0-11); CARDIOLIPIN IGG ANTIBODY <9 GPL U/mL (0-14); CARDIOLIPIN IGM ANTIBODY 10 MPL U/mL (0-12)
== END ==
LOC: M SFHCLERA 12:07
DX: E03.9 Hypothyroidism, unspecified (principal); L93.0 Discoid lupus erythematosus
CPT/HCPCS: 84443

== ENCOUNTER → 2018-03-15 | Outpatient (CLI) | payer MEDICARE, MEDICAID ==
[2018-03-15 18:58] LABS: C REACTIVE PROTEIN QUANTITATIV 0.34 MG/DL (0.00-0.30)
[2018-03-15 19:25] LABS: ERYTHROCYTE SEDIMENTATION RATE 3 mm/hr (0-30)
== END ==
LOC: M LRY 12:41
DX: M25.552 Pain in left hip (principal); E03.9 Hypothyroidism, unspecified; L93.0 Discoid lupus erythematosus; I25.10 Atherosclerotic heart disease of native coronary artery without angina pectoris
CPT/HCPCS: 84443; 86140

== ENCOUNTER → 2018-03-17 | Outpatient (CLI) | payer MEDICARE, MEDICAID | LOC: M PAIN 09:30 | DX: M25.552 Pain in left hip (principal); M46.1 Sacroiliitis, not elsewhere classified; M25.551 Pain in right hip; I25.10 Atherosclerotic heart disease of native coronary artery without angina pectoris; I25.2 Old myocardial infarction; E89.0 Postprocedural hypothyroidism; K59.00 Constipation, unspecified; K21.9 Gastro-esophageal reflux disease without esophagitis; F32.9 Major depressive disorder, single episode, unspecified; G43.719 Chronic migraine without aura, intractable, without status migrainosus; E55.9 Vitamin D deficiency, unspecified; F17.210 Nicotine dependence, cigarettes, uncomplicated; Z95.5 Presence of coronary angioplasty implant and graft; Z79.891 Long term (current) use of opiate analgesic; Z86.718 Personal history of other venous thrombosis and embolism; Z86.711 Personal history of pulmonary embolism; Z86.73 Personal history of transient ischemic attack (TIA), and cerebral infarction without residual deficits; Z79.01 Long term (current) use of anticoagulants; Z79.02 Long term (current) use of antithrombotics/antiplatelets; Z79.899 Other long term (current) drug therapy; Z96.643 Presence of artificial hip joint, bilateral; Z88.7 Allergy status to serum and vaccine; Z88.8 Allergy status to other drugs, medicaments and biological substances; Z91.018 Allergy to other foods | CPT/HCPCS: G0463 ==

== ENCOUNTER 2018-03-19 19:05 | Emergency (ER) | payer MEDICARE, MEDICAID ==
[2018-03-19 19:45] LABS: BASO # 0.1 10^3/uL (0.0-0.2); BASO % 0.5 % (0.0-1.0); EOS # 0.1 10^3/uL (0.0-0.50); EOS % 1.1 % (0.0-3.0); HEMATOCRIT 45.2 % (36.0-47.0); HEMOGLOBIN 15.2 g/dl (12.0-15.5); IMMATURE GRANULOCYTE % 0.3 % (0-3.0); LYMPH # 3.4 10^3/uL (1.5-4.5); MEAN CORPUSCULAR HEMOGLOBIN 31.1 pg (27.0-33.0); MEAN CORPUSCULAR HGB CONC 33.6 g/dl (32.0-36.5); MEAN CORPUSCULAR VOLUME 92.4 fl (80.0-96.0); MONO # 0.8 10^3/uL (0.0-0.8); MONO % 7.6 % (0.0-5.0); NEUTROPHILS # 5.6 10^3/uL (1.8-7.7); NEUTROPHILS % 56.5 % (36.0-66.0); PLATELET COUNT, AUTOMATED 291 10^3/uL (150-450); RED BLOOD COUNT 4.89 10^6/uL (4.00-5.40); RED CELL DISTRIBUTION WIDTH 13.1 % (11.5-14.5); WHITE BLOOD COUNT 9.9 10^3/uL (4.0-10.0)
[2018-03-19 20:00] LABS: INR 2.39; PROTHROMBIN TIME 26.6 SECONDS (12.1-14.4)
[2018-03-19 20:01] LABS: PARTIAL THROMBOPLASTIN TIME 44.1 SECONDS (25.4-37.6)
[2018-03-19 20:16] LABS: ANION GAP 9 MEQ/L (8-16); BLOOD UREA NITROGEN 8 MG/DL (7-18); CALCIUM LEVEL 8.9 MG/DL (8.5-10.1); CARBON DIOXIDE LEVEL 29 MEQ/L (21-32); CHLORIDE LEVEL 104 MEQ/L (98-107); CK-MB VALUE MASS < 1.0 NG/ML (<3.6); CPK CREATINE PHOSPHOKINASE 42 U/L (26-192); CREATININE FOR GFR 0.57 MG/DL (0.55-1.30); GLOMERULAR FILTRATION RATE > 60.0 (>51); GLUCOSE, FASTING 127 MG/DL (70-100); MB/CK RELATIVE INDEX 2.38 (< OR =4); POTASSIUM SERUM 3.5 MEQ/L (3.5-5.1); SODIUM LEVEL 142 MEQ/L (136-145); TROPONIN I < 0.02 NG/ML (< 0.10)
[2018-03-19] MEDS: METOCLOPRAMIDE INJ 10MG/2ML VIAL (J2765) IV (21:08)
[2018-03-19] MEDS: MORPHINE 2 MG/ML 1ML SYRINGE (J2270) IV (21:09)
[2018-03-19] MEDS ORDERED: ISOVUE-370 76% 100ML VIAL (Q9967) As Ordered (21:56)
[2018-03-19] MEDS: NORCO, ANEXSIA 5/325MG TABLET (HYDROcodone/ACETAMINOPHEN) PO (22:12)
== END 2018-03-19 23:36 | disposition left against medical advice (07) ==
LOC: M ED 19:05
DX: R07.9 Chest pain, unspecified (principal); R94.31 Abnormal electrocardiogram [ECG] [EKG]; I25.10 Atherosclerotic heart disease of native coronary artery without angina pectoris; I10 Essential (primary) hypertension; E78.5 Hyperlipidemia, unspecified; K21.9 Gastro-esophageal reflux disease without esophagitis; F17.200 Nicotine dependence, unspecified, uncomplicated; Z86.73 Personal history of transient ischemic attack (TIA), and cerebral infarction without residual deficits; Z95.5 Presence of coronary angioplasty implant and graft; Z90.49 Acquired absence of other specified parts of digestive tract; Z79.01 Long term (current) use of anticoagulants; Z98.890 Other specified postprocedural states; Z88.8 Allergy status to other drugs, medicaments and biological substances; Z88.7 Allergy status to serum and vaccine; Z91.048 Other nonmedicinal substance allergy status
CPT/HCPCS: Q9967

== ENCOUNTER → 2018-04-19 | Outpatient (CLI) | payer MEDICARE, MEDICAID | LOC: M PAIN 08:45 | DX: M25.552 Pain in left hip (principal); M46.1 Sacroiliitis, not elsewhere classified; M25.551 Pain in right hip; I25.10 Atherosclerotic heart disease of native coronary artery without angina pectoris; I25.2 Old myocardial infarction; M19.90 Unspecified osteoarthritis, unspecified site; E89.0 Postprocedural hypothyroidism; G43.909 Migraine, unspecified, not intractable, without status migrainosus; F32.9 Major depressive disorder, single episode, unspecified; Z72.0 Tobacco use; Z79.01 Long term (current) use of anticoagulants; Z79.891 Long term (current) use of opiate analgesic; Z79.899 Other long term (current) drug therapy; Z88.7 Allergy status to serum and vaccine; Z88.8 Allergy status to other drugs, medicaments and biological substances; Z91.09 Other allergy status, other than to drugs and biological substances; Z86.79 Personal history of other diseases of the circulatory system; Z86.711 Personal history of pulmonary embolism; Z96.643 Presence of artificial hip joint, bilateral | CPT/HCPCS: G0463 ==

== ENCOUNTER → 2018-04-29 | Outpatient (REF) | payer MEDICARE, MEDICAID ==
[2018-04-29 17:06] LABS: BASO # 0.1 10^3/uL (0.0-0.2); BASO % 0.4 % (0.0-1.0); EOS # 0.1 10^3/uL (0.0-0.50); EOS % 0.8 % (0.0-3.0); HEMATOCRIT 42.9 % (36.0-47.0); HEMOGLOBIN 14.4 g/dl (12.0-15.5); IMMATURE GRANULOCYTE % 0.3 % (0-3.0); LYMPH # 3.3 10^3/uL (1.5-4.5); LYMPH % 28.7 % (24.0-44.0); MEAN CORPUSCULAR HEMOGLOBIN 31.2 pg (27.0-33.0); MEAN CORPUSCULAR HGB CONC 33.6 g/dl (32.0-36.5); MEAN CORPUSCULAR VOLUME 92.9 fl (80.0-96.0); MONO # 0.9 10^3/uL (0.0-0.8); MONO % 8.2 % (0.0-5.0); NEUTROPHILS % 61.6 % (36.0-66.0); PLATELET COUNT, AUTOMATED 292 10^3/uL (150-450); RED BLOOD COUNT 4.62 10^6/uL (4.00-5.40); RED CELL DISTRIBUTION WIDTH 12.7 % (11.5-14.5); WHITE BLOOD COUNT 11.3 10^3/uL (4.0-10.0)
[2018-04-29 17:22] LABS: ANION GAP 5 MEQ/L (8-16); BLOOD UREA NITROGEN 9 MG/DL (7-18); CALCIUM LEVEL 9.1 MG/DL (8.5-10.1); CARBON DIOXIDE LEVEL 33 MEQ/L (21-32); CHLORIDE LEVEL 100 MEQ/L (98-107); GLOMERULAR FILTRATION RATE > 60.0 (>51); GLUCOSE, FASTING 94 MG/DL (70-100); POTASSIUM SERUM 4.2 MEQ/L (3.5-5.1); SODIUM LEVEL 138 MEQ/L (136-145)
[2018-04-29 17:40] LABS: APPEARANCE, URINE CLEAR (CLEAR); BACTERIA, URINE AUTO NEGATIVE (NEGATIVE); BILIRUBIN, URINE AUTO NEGATIVE (NEGATIVE); BLOOD, URINE BLOOD NEGATIVE (NEGATIVE); COLOR, URINE YELLOW (YELLOW); GLUCOSE, URINE (UA) AUTO NEGATIVE (NEGATIVE); KETONE, URINE AUTO NEGATIVE (NEGATIVE); LEUKOCYTE ESTERASE, URINE AUTO NEGATIVE (NEGATIVE); MUCUS, URINE SMALL (NEGATIVE); NITRITE, URINE AUTO NEGATIVE (NEGATIVE); PROTEIN, URINE AUTO NEGATIVE (NEGATIVE); RBC, URINE AUTO 9 /HPF (0-3); SPECIFIC GRAVITY URINE AUTO 1.016 (1.002-1.035); SQUAMOUS EPITHELIAL CELL UR AU 2 /HPF (0-6); UROBILINOGEN, URINE AUTO 0.2 mg/dL (0.0-2.0); WBC, URINE AUTO 1 /HPF (0-3)
== END ==
LOC: M SFHCLERA 10:15
DX: R31.9 Hematuria, unspecified (principal)
CPT/HCPCS: 80048

== ENCOUNTER 2018-05-07 05:13 | Emergency (ER) | payer MEDICARE, MEDICAID ==
[2018-05-07] MEDS: MORPHINE 10 MG/ML 1ML VIAL (J2270) IM (06:42)
== END 2018-05-07 07:02 | disposition home or self-care (01) ==
LOC: M ED 05:13
DX: S42.295A Other nondisplaced fracture of upper end of left humerus, initial encounter for closed fracture (principal); W00.0XXA Fall on same level due to ice and snow, initial encounter; Y92.89 Other specified places as the place of occurrence of the external cause; E11.9 Type 2 diabetes mellitus without complications; I10 Essential (primary) hypertension; F33.9 Major depressive disorder, recurrent, unspecified; K21.9 Gastro-esophageal reflux disease without esophagitis; I25.2 Old myocardial infarction; K44.9 Diaphragmatic hernia without obstruction or gangrene; Z79.899 Other long term (current) drug therapy; Z79.82 Long term (current) use of aspirin; Z79.02 Long term (current) use of antithrombotics/antiplatelets; Z88.7 Allergy status to serum and vaccine; Z88.8 Allergy status to other drugs, medicaments and biological substances; Z91.048 Other nonmedicinal substance allergy status
CPT/HCPCS: J2270

== ENCOUNTER → 2018-06-04 | Outpatient (REF) | payer MEDICARE, MEDICAID ==
[~2018-06-04] MED LIST changes: -AMLO2.5T PO; +AMLO2.5T3 PO; +ZOFR8TAB22 PO; -ZOFR8TAB4 PO
[2018-06-04 18:14] LABS: APPEARANCE, URINE CLEAR (CLEAR); BACTERIA, URINE AUTO NEGATIVE (NEGATIVE); BILIRUBIN, URINE AUTO NEGATIVE (NEGATIVE); BLOOD, URINE BLOOD NEGATIVE (NEGATIVE); COLOR, URINE AMBER (YELLOW); GLUCOSE, URINE (UA) AUTO NEGATIVE (NEGATIVE); KETONE, URINE AUTO TRACE mg/dL (NEGATIVE); LEUKOCYTE ESTERASE, URINE AUTO TRACE (NEGATIVE); MUCUS, URINE SMALL (NEGATIVE); NITRITE, URINE AUTO NEGATIVE (NEGATIVE); PROTEIN, URINE AUTO NEGATIVE (NEGATIVE); RBC, URINE AUTO 2 /HPF (0-3); SPECIFIC GRAVITY URINE AUTO 1.029 (1.002-1.035); SQUAMOUS EPITHELIAL CELL UR AU 2 /HPF (0-6); WBC, URINE AUTO 2 /HPF (0-3)
== END ==
LOC: M SMT 17:12
PROVIDERS: ATTEND Nurse Practitioner Family
DX: R31.29 Other microscopic hematuria (principal)
CPT/HCPCS: 81001; 87086; 88108; G0463

== ENCOUNTER → 2018-06-08 | Outpatient (CLI) | payer MEDICARE, MEDICAID ==
[2018-06-08 13:19] LABS: ANION GAP 5 MEQ/L (8-16); BLOOD UREA NITROGEN 7 MG/DL (7-18); CALCIUM LEVEL 9.2 MG/DL (8.5-10.1); CARBON DIOXIDE LEVEL 31 MEQ/L (21-32); CHLORIDE LEVEL 105 MEQ/L (98-107); CREATININE FOR GFR 0.56 MG/DL (0.55-1.30); GLOMERULAR FILTRATION RATE > 60.0 (>51); GLUCOSE, FASTING 94 MG/DL (70-100); POTASSIUM SERUM 4.4 MEQ/L (3.5-5.1); SODIUM LEVEL 141 MEQ/L (136-145)
== END ==
LOC: M SMT 09:25
DX: R31.29 Other microscopic hematuria (principal)
CPT/HCPCS: 80048

== ENCOUNTER → 2018-06-08 | Outpatient (REF) | payer MEDICARE, MEDICAID ==
[2018-06-08 13:50] LABS: APPEARANCE, URINE CLEAR (CLEAR); BACTERIA, URINE AUTO NEGATIVE (NEGATIVE); BILIRUBIN, URINE AUTO NEGATIVE (NEGATIVE); BLOOD, URINE BLOOD NEGATIVE (NEGATIVE); COLOR, URINE YELLOW (YELLOW); GLUCOSE, URINE (UA) AUTO NEGATIVE (NEGATIVE); KETONE, URINE AUTO NEGATIVE (NEGATIVE); LEUKOCYTE ESTERASE, URINE AUTO 1+ (NEGATIVE); MUCUS, URINE SMALL (NEGATIVE); NITRITE, URINE AUTO NEGATIVE (NEGATIVE); PROTEIN, URINE AUTO NEGATIVE (NEGATIVE); RBC, URINE AUTO 2 /HPF (0-3); SPECIFIC GRAVITY URINE AUTO 1.011 (1.002-1.035); SQUAMOUS EPITHELIAL CELL UR AU 2 /HPF (0-6); UROBILINOGEN, URINE AUTO 0.2 mg/dL (0.0-2.0); WBC, URINE AUTO 0 /HPF (0-3)
== END ==
LOC: M SMT 13:05
DX: R31.29 Other microscopic hematuria (principal)

== ENCOUNTER → 2018-06-28 | Outpatient (REF) | payer MEDICARE, MEDICAID | LOC: M SFHCLERA 14:45 | PROVIDERS: ATTEND Family Medicine | DX: E03.9 Hypothyroidism, unspecified (principal) | CPT/HCPCS: 84443; G0463 ==

== ENCOUNTER → 2018-07-06 | Outpatient (CLI) | payer MEDICARE, MEDICAID ==
--- NOTE | 2018-07-07 00:38 | ECWPNPC ---
PATIENT NAME: WALTER WISE : 1965 GENDER: FEMALE VISIT DATE: 07/06/2018 DISCHARGE DATE: 07/06/1834 VISIT LOCKED DATE TIME: PHYSICIAN: FARNAZ BLEVINS RESOURCE: FARNAZ BLEVINS REASON FOR APPOINTMENT 1. BACK AND HIP PAIN HISTORY OF PRESENT ILLNESS HISTORY OF PRESENT ILLNESS: HERE FOR ROUTINE F/U AND MEDICINE MANAGEMENT OF CHRONIC PAIN.HISTORY OF MULTIPLE COMORBIDITIES.RECENT FALL WITH LEFT SHOULDER INJURY AND IS FOLLOWING WITH [facility].HAS BEEN HAVING HEMATURIA AND IS FOLLOWING WITH UROLOGY.STATES SHE IS BEING EVALUATED FOR BLADDER CANCER.HISTORY OF CAD ,STROKE WITH RIGHT SIDE WEAKNESS.FIRST RI AT 35.HISTORY OF CABG.HISTORY OF BILATERAL HIP REPLACEMENT .CURRENTLY USING OXYCODONE 15 MG QID AND PRN FLEXERIL.FINDS MEDICATION EFFECTIVE WITHOUT SIDE EFFECTS.HISTORY OF 36 # WEIGHT LOSS OVER THE PAST 3 MONTHS.RATING PAIN VAS 5/10. PAIN THE PATIENT DESCRIBES THE PAIN... FALL RISK SCREENING: SCREENING :NO FALLS IN THE PAST YEAR CURRENT MEDICATIONS TAKING FLONASE ALLERGY RELIEF 50 MCG/ACT SUSPENSION 1 SPRAY IN EACH NOSTRIL NASALLY ONCE A DAY NEEDED TAKING METOPROLOL SUCCINATE ER 100 MG TABLET EXTENDED RELEASE 24 HOUR 1 TABLET ORALLY ONCE DAILY TAKING LEVOTHROID 100 MCG TABLET 1 TABLET EVERY MORNING ON AN EMPTY STOMACH ORALLY ONCE A DAY FOR HYPOTHYROIDISM TAKING XARELTO 20 MG TABLET 1 TABLET ORALLY ONCE A DAY TAKING PLAVIX 75 MG TABLET 1 TABLET ORALLY ONCE A DAY TAKING CYCLOBENZAPRINE HCL 10 MG TABLET 1 TABLET NEEDED ORALLY THREE TIMES A DAY TAKING ZOFRAN ODT 8 MG TABLET DISPERSIBLE 1 TAB(S) ORALLY TID WHEN NEEDED FOR NAUSEA TAKING OXYCODONE HCL 15 MG TABLET 1 TABLET NEEDED ORALLY EVERY 4 -6 HRS PRN PAIN MDD=4 TAKING LORAZEPAM 0.5 MG TABLET 1 TABLET NEEDED ORALLY TID (MDD;3) TAKING LEXAPRO 10 MG TABLET 1 TABLET ORALLY ONCE A DAY MEDICATION LIST REVIEWED AND RECONCILED WITH THE PATIENT PAST MEDICAL HISTORY RI/CABG/UNSTABLE ANGINA/MULTIPLE STENT PLACEMENTS RCA 2001 2002 2003 2004 2009 =- [facility] HISTORY OF CVA 2001 PULMONARY EMBOLISM 2006/HISTORY OF RECURRENT DVT OSTEOARTHRITIS ELEVATED FACTOR VIII HISTORY OF RENAL STONE HYPOTHYROIDISM/STATUS POST THYROIDECTOMY FOR THYROID CANCER CONSTIPATION ABNORMAL PAP SMEAR - YESSI I WITH + HPV - FOLLOWS AT [facility] UNSPECIFIED URINARY CALCULUS 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 DYSFUNCTION CHRONIC MIGRAINE WITHOUT AURA, WITH INTRACTABLE MIGRAINE, SO STATED, WITHOUT MENTION OF STATUS MIGRAINOSUS ESOPHAGEAL REFLUX DEPRESSIVE DISORDER, NOT ELSEWHERE CLASSIFIED VITAMIN D DEFICIENCY TOBACCO DEPENDENCE ALLERGIES [id number] PERTUSSIS: ANAPHYLAXIS: ALLERGY ALL METALS: SEVERE SWELLING: ALLERGY NITROGLYCERIN: HYPOTENSION: SIDE EFFECTS SURGICAL HISTORY 1982 1985 TRIPLE BYPASS 2004 STERNOTOMY WIRE REMOVAL 2005 REMOVAL OF ABDOMINAL ADHESIONS 2007 THYROIDECTOMY 2008 LAPAROSCOPIC CHOLECYSTECTOMY 2009 FAUSTINA FUNDOPLICATION 2009 SACRAL TUMOR REMOVED 08/05 COLPOSCOPY [facility], THEN ELIDA - DR CENTENO 03/05 STENT IN HEART IN [place] 01/2015 7 STENTS AND A BALOON AT [facility] 02/2015 3 CARDIAC STENTS 11/01/2015 EXPLORATORY ON R HIP 12/2016 RIGHT TOTAL HIP REPLACEMENT 03/2017 LEFT TOTAL HIP REPLACEMENT 12/07/17 CARDIAC CATH 03/2018 RIGHT HIP REPLACEMENT 03/2017 LEFT HIP REPLACEMENT 11/2017 FAMILY HISTORY NO FAMILY HISTORY DOCUMENTED. SOCIAL HISTORY GENERAL: TOBACCO USE ARE YOU A:CURRENT SMOKER ARE YOU INTERESTED IN QUITTING?NOT READY TO QUIT COUNSELED THE PATIENT ON SMOKING EFFECTS, EDUCATION [id number]/15/2019 HOW MANY CIGARETTES A DAY DO YOU SMOKE?5 OR LESS PATIENT COUNSELED ON THE DANGERS OF TOBACCO USE AND URGED TO QUIT:07/06/2018 LUNG CANCER SCREENING SMOKING STATUS:CURRENT SMOKER BMI CARE GOAL FOLLOW-UP ABOVE NORMAL BMI FOLLOW-UPDIETARY MANAGEMENT EDUCATION, GUIDANCE, AND COUNSELING ALCOHOL SCREENING DID YOU HAVE A DRINK CONTAINING ALCOHOL IN THE PAST YEAR?NO POINTS0 INTERPRETATIONNEGATIVE RECREATIONAL DRUG USE DRUG USE?NO CAFFEINE CAFFEINE USE?YES DAILY COFFEE SEXUAL HX HAD SEX IN THE LAST 12 MONTHS (VAGINAL, ORAL, OR ANAL)?NO HAVE YOU EVER HAD AN STD?NO HIV / HEP-C SCREENING HIV TEST OFFERED TO PATIENT:YES DATE OFFERED:06/28/2018 TEST ACCEPTED:NO HEP-C TEST OFFERED TO PATIENT:YES DATE OFFERED:06/28/2018 REASON:PATIENT DECLINED TEST ACCEPTED:NO REASON:PATIENT DECLINED BROCHURE PROVIDED TO PATIENTNO LATTER-DAY [id number] MOSQUE LANGUAGE LANGUAGES SPOKEN:PASHTO EDUCATION LEVEL OF EDUCATION:FINISHED HIGH SCHOOL LEARNING BARRIERS / SPECIAL NEEDS BARRIERS TO LEARNING?NO HEARING IMPAIRED?NO VISION IMPAIRED?YES COGNITIVELY IMPAIRED?NO :CORRECTIVE LENSES GLASSES READINESS TO LEARN?YES LEARNING PREFERENCES?NO LEARNING CAPABILITIES PRESENT?YES EMOTIONAL BARRIERS?NO SPECIAL DEVICES?NO [place] 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 EXERCISE: NO REGULAR EXERCISE,. MARITAL STATUS: , . OTHERS AT HOME: SPOUSE. PAIN CLINIC PFS, CLERGY, PUBLIC HEALTH REFERRALS HAS THE PATIENT BEEN EDUCATED REGARDING HIS/HER PLAN OF CARE?YES HAS THE PATIENT BEEN EDUCATED REGARDING PAIN, THE RISK FOR PAIN, THE IMPORTANCE OF EFFECTIVE PAIN MANAGEMENT, AND THE PAIN ASSESSMENT PROCESS?YES ADVANCE DIRECTIVE ADVANCE DIRECTIVE DISCUSSED WITH PATIENT:YES NO ADVANCED DIRECTIVES, REFUSED HCP INFORMATION. REVIEWED WITH PATIENT 05/17/18 1403 DHDREVIEWED WITH PATIENT 07/06/18 0905 . HOSPITALIZATION/MAJOR DIAGNOSTIC PROCEDURE SURGERIES REVIEW OF SYSTEMS REVIEWED BY: PROVIDER: FARNAZ BENZ . CONSTITUTIONAL: ANY CHANGE IN YOUR MEDICAL CONDITION? NO . CHILLS NO . FEVER NO . INFECTION: DO YOU HAVE NEW INFECTIONS? NO . DO YOU HAVE HISTORY OF MRSA? NO . MUSCULOSKELETAL: ANY NEW PATTERNS OF PAIN OR NUMBNESS? NO . GASTROENTEROLOGY: ANY NEW CHANGE IN BOWEL CONTROL? NO . GENITOURINARY: ANY NEW CHANGE IN BLADDER CONTROL? NO . IS THERE A CHANCE YOU COULD BE ? NO . HEMATOLOGY/LYMPH: DO YOU TAKE ANY BLOOD THINNERS? (FOR EXAMPLE- COUMADIN, PLAVIX, AGGRENOX, PLATEL, PRADAXA, OR XARELTO) YES, PLAVIX AND XARELTO . WHEN WAS YOUR LAST DOSE? DATE: 07/05/18 TIME: 1700 . NEUROLOGY: HAVE YOU FALLEN IN THE PAST 6 MONTHS? YES - FELL April, SHATTERED LEFT SHOULDER, WAS IN BRACE FOR AWHILE. APPOINTMENT WITH [facility] THIS AFTERNOON TO DETERMINE NEXT STEPS . ANY NEW EXTREMITY NUMBNESS OR WEAKNESS? NO . CARDIOLOGY: DO YOU HAVE A PACEMAKER OR DEFIBRILLATOR? NO . RESPIRATORY: HAVE YOU BEEN SICK IN THE PAST WEEK? NO . FEVER NO . FLU LIKE SYMPTOMS? NO . COUGH NO . INTEGUMENTARY: DO YOU HAVE ANY RASHES OR OPEN SORES? NO . ALLERGIC/IMMUNO: ARE YOU ALLERGIC TO SHELLFISH OR IV DYE? NO . ANY NEW ALLERGIES? NO . PSYCHIATRIC: DO YOU HAVE THOUGHTS OF HURTING YOURSELF OR SOMEONE ELSE? NO . ARE YOU ABUSED, NEGLECTED, OR IN AN UNSAFE ENVIRONMENT? NO . ENDOCRINOLOGY: ARE YOU DIABETIC? NO . OTHER: DO YOU NEED ANY PRESCRIPTIONS? NO . IF YES, PLEASE LIST: ____ . ANY NEW PROBLEMS WITH YOUR MEDICATIONS? NO . WHEN DID YOU LAST EAT? ____ . WHEN DID YOU LAST DRINK? ____ . WHAT DID YOU LAST DRINK? ____ . NAME OF PERSON DRIVING YOU HOME? ____ . DO YOU HAVE ANY OTHER QUESTIONS OR CONCERNS NO . VITAL SIGNS WT 145.0 LBS, HT 63", BMI 25.68 INDEX, BP 142/77 MM HG, HR 72 /MIN, RR 16 /MIN, TEMP 97.5 F, OXYGEN SAT % 94, SAFE IN ENV? (Y/N) YES, NA INITIALS MP [id number], REVIEWED BY: ALISA. EXAMINATION GENERAL EXAMINATION: GENERAL APPEARANCE:AWAKE,ALERT ,PLEAASANT . PSYCHAFFECT NORMAL . NECK:TRACHEA MIDLINE. NO CERVICAL OR SUPRACLAVICULAR LYMPHADENOPATHY NOTED . LUNGS:LUNG CYR ARE CLEAR TO AUSCULTATION BILATERALLY. GOOD MOVEMENT OF AIR . HEART:S1, S2 IN A REGULAR RATE AND RHYTHM. NO SIGNIFICANT MURMURS, RUBS OR GALLOPS NOTED . MUSCULOSKELETAL:MUSCLE STRENGTH TESTING WEAK BILAT LOWER EXTREMITIES R>L UNABLE TO ABDUCT LEFT ARM DUE TO SHOULDER PAIN. LUMBAR SACRAL SPINEPALPATION: + FOR PAIN OVER L/S SPINE. + FOR PAIN OVER L/S PARASPINALS. . CERVICALNEGATIVE FOR PAIN WITH PALPATION OF CERVICAL SPINE. NEGATIVE FOR PAIN WITH PALPATION OF CERVICAL PARASPINALS. NEGATIVE FOR PAIN WITH PALPATION OF TRAPEZIUS BILAT . SKIN:NO RASH OR SKIN LESIONS . ASSESSMENTS LUMBAR SPINAL STENOSIS - M48.06 (PRIMARY) HIP PAIN, BILATERAL - M25.551 CHRONIC PRESCRIPTION OPIATE USE - Z79.891 TREATMENT LUMBAR SPINAL STENOSIS CONTINUE CYCLOBENZAPRINE HCL TABLET, 10 MG, 1 TABLET NEEDED, ORALLY, THREE TIMES A DAY REFILL OXYCODONE HCL TABLET, 15 MG, 1 TABLET NEEDED, ORALLY, EVERY 4 -6 HRS PRN PAIN MDD=4, 30 DAY(S), 120, REFILLS 0 NOTES: ISTOP REGISTRY REVIEWED AND DEMONSTRATES COMPLLIANCE. (REF # [id number] ) BRINGS IN MEDICATIONS WHICH IS APPROPRIATE FOR WHAT WAS DISPENSED. RECENT URINE TOXICOLOGY REVIEWED. NO UNAUTHORIZED MEDICATIONS. NO ILLICIT SUBSTANCES AND PRESCRIBED MEDICATIONS WERE PRESENT. URINE TOX TODAY, RISKS AND BENEFITS OF NARCOTIC/OPIOD MEDICATIONS WERE REVIEWED WITH PATIENT - THIS INCLUDES BUT IS NOT LIMITED TO RISK OF DEPENDANCE/DEVELOPMENT OF ADDICTION, MOOD DISTURBANCE AND DEPRESSION, OSTEOPOROSIS, HORMONAL AND LABIDAL CHANGES, RESPIRATORY DEPRESSION AND . PATIENT IS ADVISED NOT TO DRIVE OR DRINK ALCOHOL WHILE ON THESE MEDICATIONS. PROCEDURE CODES FA211 ESTABILISHED PATIENT [facility] CHARGE DISPOSITION & COMMUNICATION FOLLOW UP 3 MONTHS ELECTRONICALLY SIGNED BY DEMAR LLAMAS ON 07/06/2018 AT 12:21 PM EST DISCLAIMER : THIS IS A VISIT SUMMARY EXTRACTED FROM THE [employer] CHART. IT IS NOT A COPY OF THE [employer] PROGRESS NOTE. AUGUSTUS
== END ==
LOC: M PAIN 08:30
PROVIDERS: ATTEND Nurse Practitioner Family
DX: M48.061 Spinal stenosis, lumbar region without neurogenic claudication (principal); M25.551 Pain in right hip; I25.2 Old myocardial infarction; M19.90 Unspecified osteoarthritis, unspecified site; D66 Hereditary factor VIII deficiency; G43.909 Migraine, unspecified, not intractable, without status migrainosus; E89.0 Postprocedural hypothyroidism; F17.210 Nicotine dependence, cigarettes, uncomplicated; Z79.01 Long term (current) use of anticoagulants; Z79.891 Long term (current) use of opiate analgesic; Z79.899 Other long term (current) drug therapy; Z88.7 Allergy status to serum and vaccine; Z88.8 Allergy status to other drugs, medicaments and biological substances; Z91.09 Other allergy status, other than to drugs and biological substances; Z86.79 Personal history of other diseases of the circulatory system; Z96.643 Presence of artificial hip joint, bilateral

== ENCOUNTER → 2018-08-25 | Outpatient (REF) | payer MEDICARE ==
[2018-08-25 19:06] LABS: BACTERIA, URINE AUTO NEGATIVE (NEGATIVE); RBC, URINE AUTO 1 /HPF (0-3); SQUAMOUS EPITHELIAL CELL UR AU 1 /HPF (0-6); WBC, URINE AUTO 0 /HPF (0-3)
== END ==
LOC: M SMT 17:15
PROVIDERS: ATTEND Specialist
DX: R31.29 Other microscopic hematuria (principal)
CPT/HCPCS: 52000; 81015; 87086; 88108; G0463

== ENCOUNTER → 2018-10-22 | Outpatient (CLI) | payer MEDICARE, MEDICAID ==
[~2018-10-22] MED LIST changes: -/ESCI20TA PO; -/ONDA4TA; -/PANT40TA; -/WARF25TA OR; -/WARF5TA OR; -/WARF5TA PO; +COUM1TAB17 OR; +COUM1TAB17 PO; +COUM1TAB18 OR; +LEXA1TAB2 PO; -NUCY100T11 PO; +ONDA-1; +ONDA-227 OR; +PROT1TAB2; +TAPE100T2 PO; -ZOFR8TAB OR
--- NOTE | 2018-11-17 01:24 | ECWPNPC ---
PATIENT NAME: WALTER WISE : 1965 GENDER: FEMALE VISIT DATE: 10/22/2018 DISCHARGE DATE: 10/22/18 1046 VISIT LOCKED DATE TIME: PHYSICIAN: FARNAZ BLEVINS RESOURCE: FARNAZ BLEVINS REASON FOR APPOINTMENT 1. BACK/HIP HISTORY OF PRESENT ILLNESS HISTORY OF PRESENT ILLNESS: HERE FOR F/U OF CHRONIC LOW BACK PAIN AND LEFT GROIN AND SHOULDER PAIN.RATING PAIN VAS 3/10.PAIN IS DESCRIBED CONTINUOUS AND ACHING.HISTORY OF MULTIPLE COMORBIDITIES.FINDS CURRENT MEDICATION EFFECTIVE AT REDUCING PAIN AND KEEPING HER COMFORTABLE. PAIN THE PATIENT DESCRIBES THE PAIN... FALL RISK SCREENING: SCREENING :NO FALLS REPORTED IN THE LAST YEAR CURRENT MEDICATIONS TAKING FLONASE ALLERGY RELIEF 50 MCG/ACT SUSPENSION 1 SPRAY IN EACH NOSTRIL NASALLY ONCE A DAY NEEDED TAKING METOPROLOL SUCCINATE ER 100 MG TABLET EXTENDED RELEASE 24 HOUR 1 TABLET ORALLY ONCE DAILY TAKING LEVOTHROID 100 MCG TABLET 1 TABLET EVERY MORNING ON AN EMPTY STOMACH ORALLY ONCE A DAY FOR HYPOTHYROIDISM TAKING XARELTO 20 MG TABLET 1 TABLET ORALLY ONCE A DAY TAKING PLAVIX 75 MG TABLET 1 TABLET ORALLY ONCE A DAY TAKING ZOFRAN ODT 8 MG TABLET DISPERSIBLE 1 TAB(S) ORALLY THREE TIMES DAILY NEEDED TAKING LORAZEPAM 0.5 MG TABLET 1 TABLET NEEDED ORALLY TID (MDD;3) TAKING PROAIR HFA 108 (90 BASE) MCG/ACT AEROSOL SOLUTION 2 PUFFS NEEDED INHALATION EVERY 6 HRS TAKING LEVOTHYROXINE SODIUM 100 MCG TABLET TAKE 1 TABLET BY MOUTH EVERY MORNING ON AN EMPTY STOMACH TAKING OXYCODONE HCL 15 MG TABLET 1 TABLET NEEDED ORALLY EVERY 4 -6 HRS PRN PAIN MDD=4 TAKING ONDANSETRON 8 DISINTEGRATING TABLET DISSOLVE 1 TABLET BY MOUTH THREE TIMES DAILY NEEDED FOR NAUSEA NOT-TAKING CYCLOBENZAPRINE HCL 10 MG TABLET 1 TABLET NEEDED ORALLY THREE TIMES A DAY MEDICATION LIST REVIEWED AND RECONCILED WITH THE PATIENT PAST MEDICAL HISTORY MO/CABG/UNSTABLE ANGINA/MULTIPLE STENT PLACEMENTS RCA 2001 2002 2003 2004 2009 =- [facility] HISTORY OF CVA 2002 PULMONARY EMBOLISM 2006/HISTORY OF RECURRENT DVT OSTEOARTHRITIS ELEVATED FACTOR VIII HISTORY OF RENAL STONE HYPOTHYROIDISM/STATUS POST THYROIDECTOMY FOR THYROID CANCER CONSTIPATION ABNORMAL PAP SMEAR - YESSI I WITH + HPV - FOLLOWS AT [facility] UNSPECIFIED URINARY CALCULUS 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 DYSFUNCTION CHRONIC MIGRAINE WITHOUT AURA, WITH INTRACTABLE MIGRAINE, SO STATED, WITHOUT MENTION OF STATUS MIGRAINOSUS ESOPHAGEAL REFLUX DEPRESSIVE DISORDER, NOT ELSEWHERE CLASSIFIED VITAMIN D DEFICIENCY TOBACCO DEPENDENCE ALLERGIES [id number] PERTUSSIS: ANAPHYLAXIS - ALLERGY ALL METALS: SEVERE SWELLING - ALLERGY NITROGLYCERIN: HYPOTENSION - SIDE EFFECTS IBUPROFEN: STOMACH PAIN - SIDE EFFECTS SURGICAL HISTORY 1983 1986 TRIPLE BYPASS 2005 STERNOTOMY WIRE REMOVAL 2005 REMOVAL OF ABDOMINAL ADHESIONS 2008 THYROIDECTOMY 2009 LAPAROSCOPIC CHOLECYSTECTOMY 2009 FAUSTINA FUNDOPLICATION 2009 SACRAL TUMOR REMOVED 08/05 COLPOSCOPY [facility], THEN EL[facility] - DR CENTENO 03/05 STENT IN HEART IN [place] 01/2015 7 STENTS AND A BALOON AT [facility] 02/2015 3 CARDIAC STENTS 11/01/2015 EXPLORATORY ON R HIP 12/2016 RIGHT TOTAL HIP REPLACEMENT 03/2017 LEFT TOTAL HIP REPLACEMENT 12/07/17 CARDIAC CATH 03/2018 CYSTOSCOPY 08/2018 FAMILY HISTORY FATHER: 34 YRS, DIAGNOSED WITH HEART DISEASE MOTHER: 65 YRS, LUNG CANCER, HEART DISEASE, CANCER MATERNAL GRAND MOTHER: BREAST CANCER THEN METS, CANCER BROTHER: ALIVE, DIAGNOSED WITH HEART DISEASE 2 SON(S) . BOTH CHILDREN ARE \\N\\NYOUNGEST (BOY)- 2 1\\/2 MELANOMA\\NOLDEST (BOY)- 18 LIVER CANCER. SOCIAL HISTORY GENERAL: TOBACCO USE ARE YOU A:CURRENT SMOKER ARE YOU INTERESTED IN QUITTING?NOT READY TO QUIT COUNSELED THE PATIENT ON SMOKING EFFECTS, EDUCATION [id number]/15/2019 HOW MANY CIGARETTES A DAY DO YOU SMOKE?5 OR LESS PATIENT COUNSELED ON THE DANGERS OF TOBACCO USE AND URGED TO QUIT:10/22/2018 HIV / HEP-C SCREENING HIV TEST OFFERED TO PATIENT:YES DATE OFFERED:06/28/2018 TEST ACCEPTED:NO HEP-C TEST OFFERED TO PATIENT:YES DATE OFFERED:06/28/2018 REASON:PATIENT DECLINED TEST ACCEPTED:NO REASON:PATIENT DECLINED BROCHURE PROVIDED TO PATIENTNO OTHERS AT HOME: SPOUSE. EDUCATION LEVEL OF EDUCATION:FINISHED HIGH SCHOOL DIET: REGULAR. LANGUAGE LANGUAGES SPOKEN:UKRAINIAN BMI CARE GOAL FOLLOW-UP ABOVE NORMAL BMI FOLLOW-UPDIETARY MANAGEMENT EDUCATION, GUIDANCE, AND COUNSELING RECREATIONAL DRUG USE DRUG USE?NO EXERCISE: NO REGULAR EXERCISE,. LEARNING BARRIERS / SPECIAL NEEDS BARRIERS TO LEARNING?NO HEARING IMPAIRED?NO VISION IMPAIRED?YES COGNITIVELY IMPAIRED?NO :CORRECTIVE LENSES GLASSES READINESS TO LEARN?YES LEARNING PREFERENCES?NO LEARNING CAPABILITIES PRESENT?YES EMOTIONAL BARRIERS?NO SPECIAL DEVICES?NO OIL SCOUT NEEDED?NO LUNG CANCER SCREENING SMOKING STATUS:CURRENT SMOKER PAIN CLINIC PFS, CLERGY, PUBLIC HEALTH REFERRALS WAS THE PROVIDER NOTIFIED OF ANY PERTINENT INFO?YES HAS THE PATIENT BEEN EDUCATED REGARDING HIS/HER PLAN OF CARE?YES HAS THE PATIENT BEEN EDUCATED REGARDING PAIN, THE RISK FOR PAIN, THE IMPORTANCE OF EFFECTIVE PAIN MANAGEMENT, AND THE PAIN ASSESSMENT PROCESS?YES LATEX QUESTIONNAIRE LATEX ALLERGY : HAVE YOU EVER DEVELOPED ANY TYPE OF REACTION AFTER HANDLING LATEX PRODUCTS SUCH RUBBER GLOVES, CONDOMS, DIAPHRAGMS, BALLOONS, SOCKS, OR UNDERWEAR?NO LATEX ALLERGY : HAVE YOU EVER DEVELOPED ANY TYPE OF REACTION DURING OR AFTER DENTAL APPOINTMENT, VAGINAL/RECTAL EXAMINATION, SURGICAL PROCEDURE, OR ANY OTHER EXPOSURE?NO LATEX RISK : HAVE YOU EVER HAD ANY DIFFICULTY BREATHING OR HIVES AFTER EATING OR HANDLING ANY FRUITS, OR VEGETABLES; SUCH KIWI, BANANAS, STONE FRUITS, OR CHESTNUTSNO LATEX RISK : DO YOU HAVE A PREVIOUS PERSONAL HISTORY OF MORE THAN NINE SURGERIES, SPINA BIFIDA, OR REPEATED CATHERTIZATIONS? NO LATEX RISK : ARE YOU FREQUENTLY EXPOSED TO LATEX PRODUCTS IN YOUR OCCUPATION?NO DATE ASKED : 10/22/2018 CAFFEINE CAFFEINE USE?YES DAILY COFFEE ADVANCE DIRECTIVE ADVANCE DIRECTIVE DISCUSSED WITH PATIENT:YES NO ADVANCED DIRECTIVES, REFUSED HCP INFORMATION. ANABAPTIST [id number] LATTER-DAY MARITAL STATUS: ,. ALCOHOL SCREENING DID YOU HAVE A DRINK CONTAINING ALCOHOL IN THE PAST YEAR?NO POINTS0 INTERPRETATIONNEGATIVE SEXUAL HX HAD SEX IN THE LAST 12 MONTHS (VAGINAL, ORAL, OR ANAL)?NO HAVE YOU EVER HAD AN STD?NO REVIEWED WITH PATIENT 05/17/18 1403 DHDREVIEWED WITH PATIENT 07/06/18 0905 JS. HOSPITALIZATION/MAJOR DIAGNOSTIC PROCEDURE SURGERIES HEART PROBLEMS / STROKE / PULMONARY EMBOLISM REVIEW OF SYSTEMS REVIEWED BY: PROVIDER: FARNAZ BENZ . CONSTITUTIONAL: ANY CHANGE IN YOUR MEDICAL CONDITION? NO . CHILLS NO . FEVER NO . INFECTION: DO YOU HAVE NEW INFECTIONS? NO . DO YOU HAVE HISTORY OF MRSA? NO . MUSCULOSKELETAL: ANY NEW PATTERNS OF PAIN OR NUMBNESS? NO . GASTROENTEROLOGY: ANY NEW CHANGE IN BOWEL CONTROL? NO . GENITOURINARY: ANY NEW CHANGE IN BLADDER CONTROL? NO . IS THERE A CHANCE YOU COULD BE ? NO . HEMATOLOGY/LYMPH: DO YOU TAKE ANY BLOOD THINNERS? (FOR EXAMPLE- COUMADIN, PLAVIX, AGGRENOX, PLATEL, PRADAXA, OR XARELTO) YES . WHEN WAS YOUR LAST DOSE? DATE: TIME: . NEUROLOGY: HAVE YOU FALLEN IN THE PAST 12 MONTHS? YES, PT STATES THAT SHE FELL IN PARKING LOT, BROKE HUMERUS AND FRACTURED SHOULDER, TAKING TO ED. . ANY NEW EXTREMITY NUMBNESS OR WEAKNESS? NO . CARDIOLOGY: DO YOU HAVE A PACEMAKER OR DEFIBRILLATOR? NO . RESPIRATORY: HAVE YOU BEEN SICK IN THE PAST WEEK? NO . FEVER NO . FLU LIKE SYMPTOMS? NO . COUGH NO . INTEGUMENTARY: DO YOU HAVE ANY RASHES OR OPEN SORES? NO . ALLERGIC/IMMUNO: ARE YOU ALLERGIC TO IV DYE? NO . ANY NEW ALLERGIES? NO . PSYCHIATRIC: DO YOU HAVE THOUGHTS OF HURTING YOURSELF OR SOMEONE ELSE? NO . ARE YOU ABUSED, NEGLECTED, OR IN AN UNSAFE ENVIRONMENT? NO . ENDOCRINOLOGY: ARE YOU DIABETIC? YES, MANAGED WITH DIET AND EXERCISE . OTHER: DO YOU NEED ANY PRESCRIPTIONS? YES, OXYCODONE . IF YES, PLEASE LIST: ____ . ANY NEW PROBLEMS WITH YOUR MEDICATIONS? NO . WHEN DID YOU LAST EAT? ____ . WHEN DID YOU LAST DRINK? ____ . WHAT DID YOU LAST DRINK? ____ . NAME OF PERSON DRIVING YOU HOME? ____ . DO YOU HAVE ANY OTHER QUESTIONS OR CONCERNS NO . VITAL SIGNS WT 146.8 LBS, HT 63", BMI 26.00 INDEX, BP 132/72 MM HG, HR 67 /MIN, RR 18 /MIN, TEMP 97.0 F, OXYGEN SAT % 96%, SAFE IN ENV? (Y/N) Y, NA INITIALS SC 10:07, REVIEWED BY: LUCIANO. EXAMINATION GENERAL EXAMINATION: GENERAL APPEARANCE:AWAKE,ALERT ,PLEAASANT . PSYCHAFFECT NORMAL . LUNGS:LUNG CYR ARE CLEAR TO AUSCULTATION BILATERALLY. GOOD MOVEMENT OF AIR . HEART:S1, S2 IN A REGULAR RATE AND RHYTHM. NO SIGNIFICANT MURMURS, RUBS OR GALLOPS NOTED . ASSESSMENTS LUMBAR SPINAL STENOSIS - M48.06 (PRIMARY) TREATMENT LUMBAR SPINAL STENOSIS REFILL OXYCODONE HCL TABLET, 15 MG, 1 TABLET NEEDED, ORALLY, EVERY 4 -6 HRS PRN PAIN MDD=4, 30 DAY(S), 120, REFILLS 0 NOTES: ISTOP REGISTRY REVIEWED AND DEMONSTRATES COMPLLIANCE. (REF #[id number] ) BRINGS IN MEDICATIONS WHICH IS APPROPRIATE FOR WHAT WAS DISPENSED. RECENT URINE TOXICOLOGY REVIEWED. NO UNAUTHORIZED MEDICATIONS. NO ILLICIT SUBSTANCES AND PRESCRIBED MEDICATIONS WERE PRESENT. , RISKS AND BENEFITS OF NARCOTIC/OPIOD MEDICATIONS WERE REVIEWED WITH PATIENT - THIS INCLUDES BUT IS NOT LIMITED TO RISK OF DEPENDANCE/DEVELOPMENT OF ADDICTION, MOOD DISTURBANCE AND DEPRESSION, OSTEOPOROSIS, HORMONAL AND LABIDAL CHANGES, RESPIRATORY DEPRESSION AND . PATIENT IS ADVISED NOT TO DRIVE OR DRINK ALCOHOL WHILE ON THESE MEDICATIONS. PROCEDURE CODES FA211 ESTABILISHED PATIENT [facility] CHARGE DISPOSITION & COMMUNICATION FOLLOW UP 3 MONTHS ELECTRONICALLY SIGNED BY DEMAR LLAMAS ON 11/16/2018 AT 08:22 AM EDT DISCLAIMER : THIS IS A VISIT SUMMARY EXTRACTED FROM THE [employer] CHART. IT IS NOT A COPY OF THE [employer] PROGRESS NOTE. AUGUSTUS
== END ==
LOC: M PAIN 10:00
PROVIDERS: ATTEND Nurse Practitioner Family
DX: M48.061 Spinal stenosis, lumbar region without neurogenic claudication (principal); G89.29 Other chronic pain; Z95.5 Presence of coronary angioplasty implant and graft; Z86.718 Personal history of other venous thrombosis and embolism; M19.90 Unspecified osteoarthritis, unspecified site; E03.9 Hypothyroidism, unspecified; G43.719 Chronic migraine without aura, intractable, without status migrainosus; Z86.59 Personal history of other mental and behavioral disorders; Z96.643 Presence of artificial hip joint, bilateral; F17.210 Nicotine dependence, cigarettes, uncomplicated; Z88.6 Allergy status to analgesic agent; Z88.8 Allergy status to other drugs, medicaments and biological substances; Z88.7 Allergy status to serum and vaccine; Z91.09 Other allergy status, other than to drugs and biological substances; Z79.01 Long term (current) use of anticoagulants; Z79.899 Other long term (current) drug therapy

== ENCOUNTER → 2019-01-11 | Outpatient (CLI) | payer MEDICARE, MEDICAID ==
--- NOTE | 2019-01-11 08:53 | REP ---
Right wrist four views : There is no fracture or dislocation. Mineralization and joint spaces are normal. There are no calcifications or foreign bodies. Impression: Negative right wrist . Electronically Signed by Dimitry Reyes MD 01/11/2019 08:45 A
== END ==
LOC: M LRY 08:18
PROVIDERS: ATTEND Family Medicine
DX: M67.431 Ganglion, right wrist (principal)
CPT/HCPCS: 73110; G0463

== ENCOUNTER → 2019-01-21 | Outpatient (CLI) | payer MEDICARE, MEDICAID ==
--- NOTE | 2019-02-08 01:19 | ECWPNPC ---
PATIENT NAME: WALTER WISE : 1965 GENDER: FEMALE VISIT DATE: 01/21/2019 DISCHARGE DATE: 01/21/19 0950 VISIT LOCKED DATE TIME: PHYSICIAN: FARNAZ BLEVINS RESOURCE: FARNAZ BLEVINS REASON FOR APPOINTMENT 1. BACK/HIP HISTORY OF PRESENT ILLNESS HISTORY OF PRESENT ILLNESS: HERE FOR F/U OF CHRONIC LOW BACK PAIN AND LEFT GROIN AND SHOULDER PAIN.RATING PAIN VAS 3/10.PAIN IS DESCRIBED CONTINUOUS AND ACHING.HISTORY OF MULTIPLE COMORBIDITIES.FINDS CURRENT MEDICATION EFFECTIVE AT REDUCING PAIN AND KEEPING HER COMFORTABLE. PAIN THE PATIENT DESCRIBES THE PAIN... THE PATIENT DESCRIBES THE PAIN... PAIN THE PATIENT DESCRIBES THE PAIN... THE PATIENT DESCRIBES THE PAIN... FALL RISK SCREENING: SCREENING :NO FALLS REPORTED IN THE LAST YEAR CURRENT MEDICATIONS TAKING FLONASE ALLERGY RELIEF 50 MCG/ACT SUSPENSION 1 SPRAY IN EACH NOSTRIL NASALLY ONCE A DAY NEEDED TAKING METOPROLOL SUCCINATE ER 100 MG TABLET EXTENDED RELEASE 24 HOUR 1 TABLET ORALLY ONCE DAILY TAKING XARELTO 20 MG TABLET 1 TABLET ORALLY ONCE A DAY TAKING PLAVIX 75 MG TABLET 1 TABLET ORALLY ONCE A DAY TAKING ZOFRAN ODT 8 MG TABLET DISPERSIBLE 1 TAB(S) ORALLY THREE TIMES DAILY NEEDED TAKING LORAZEPAM 0.5 MG TABLET 1 TABLET NEEDED ORALLY TID (MDD;3) TAKING PROAIR HFA 108 (90 BASE) MCG/ACT AEROSOL SOLUTION 2 PUFFS NEEDED INHALATION EVERY 6 HRS TAKING LEVOTHYROXINE SODIUM 100 MCG TABLET 1 TABLET ON AN EMPTY STOMACH IN THE MORNING ORALLY DAILY TAKING OXYCODONE HCL 15 MG TABLET 1 TABLET NEEDED ORALLY EVERY 4 -6 HRS PRN PAIN MDD=4 TAKING LAMOTRIGINE 25 MG TABLET 1 TABLET ORALLY ONCE A DAY TAKING AMLODIPINE BESYLATE 2.5 MG TABLET 1 TABLET ORALLY ONCE A DAY, NOTES: SLESKA TAKING REPATHA 140 MG/ML SOLUTION PREFILLED SYRINGE 1 ML SUBCUTANEOUS , NOTES: SLESKA TAKES EVERY 2 WEEKS TAKING TRAZODONE HCL 100 MG TABLET 1 TABLET AT BEDTIME ORALLY ONCE A DAY TAKING WRIST SPLINT - MISCELLANEOUS RIGHT WRIST COCK UP SPLINT TAKING ROSUVASTATIN CALCIUM 10 MG TABLET 1 TABLET ORALLY ONCE A DAY NOT-TAKING ONDANSETRON 8 DISINTEGRATING TABLET DISSOLVE 1 TABLET BY MOUTH THREE TIMES DAILY NEEDED FOR NAUSEA , NOTES: DUPLICATE NOT-TAKING ONDANSETRON 8 TABLET DISINTEGRATING DISSOLVE 1 TABLET BY MOUTH THREE TIMES DAILY NEEDED FOR NAUSEA , NOTES: DUPLICATE MEDICATION LIST REVIEWED AND RECONCILED WITH THE PATIENT PAST MEDICAL HISTORY TN/CABG/UNSTABLE ANGINA/MULTIPLE STENT PLACEMENTS RCA 2001 2002 2003 2004 2009 =- [facility] HISTORY OF CVA 2002 PULMONARY EMBOLISM 2007/HISTORY OF RECURRENT DVT OSTEOARTHRITIS ELEVATED FACTOR VIII HISTORY OF RENAL STONE HYPOTHYROIDISM/STATUS POST THYROIDECTOMY FOR THYROID CANCER CONSTIPATION ABNORMAL PAP SMEAR - YESSI I WITH + HPV - FOLLOWS AT [facility] UNSPECIFIED URINARY CALCULUS 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 DYSFUNCTION CHRONIC MIGRAINE WITHOUT AURA, WITH INTRACTABLE MIGRAINE, SO STATED, WITHOUT MENTION OF STATUS MIGRAINOSUS ESOPHAGEAL REFLUX DEPRESSIVE DISORDER, NOT ELSEWHERE CLASSIFIED VITAMIN D DEFICIENCY TOBACCO DEPENDENCE ALLERGIES [id number] PERTUSSIS: ANAPHYLAXIS - ALLERGY ALL METALS: SEVERE SWELLING - ALLERGY NITROGLYCERIN: HYPOTENSION - SIDE EFFECTS IBUPROFEN: STOMACH PAIN - SIDE EFFECTS SURGICAL HISTORY 1982 1985 TRIPLE BYPASS 2004 STERNOTOMY WIRE REMOVAL 2005 REMOVAL OF ABDOMINAL ADHESIONS 2007 THYROIDECTOMY 2008 LAPAROSCOPIC CHOLECYSTECTOMY 2009 FAUSTINA FUNDOPLICATION 2009 SACRAL TUMOR REMOVED 08/05 COLPOSCOPY [facility], THEN [facility] - DR CENTENO 03/05 STENT IN HEART IN [place] 01/2015 7 STENTS AND A BALOON AT [facility] 02/2015 3 CARDIAC STENTS 11/01/2015 EXPLORATORY ON R HIP 12/2016 RIGHT TOTAL HIP REPLACEMENT 03/2017 LEFT TOTAL HIP REPLACEMENT 12/07/17 CARDIAC CATH 03/2018 CYSTOSCOPY 08/2018 FAMILY HISTORY FATHER: 34 YRS, DIAGNOSED WITH HEART DISEASE MOTHER: 65 YRS, LUNG CANCER, HEART DISEASE, CANCER MATERNAL GRAND MOTHER: BREAST CANCER THEN METS, CANCER BROTHER: ALIVE, DIAGNOSED WITH HEART DISEASE 2 SON(S) . BOTH CHILDREN ARE \\N\\NYOUNGEST (BOY)- 2 1\\/2 MELANOMA\\NOLDEST (BOY)- 18 LIVER CANCER. SOCIAL HISTORY GENERAL: TOBACCO USE ARE YOU A:CURRENT SMOKER MOSTLY VAP HOW MANY CIGARETTES A DAY DO YOU SMOKE?5 OR LESS ARE YOU INTERESTED IN QUITTING?NOT READY TO QUIT PATIENT COUNSELED ON THE DANGERS OF TOBACCO USE AND URGED TO QUIT:01/11/2019 COUNSELED THE PATIENT ON SMOKING EFFECTS, EDUCATION [id number]/23/2019 HIV / HEP-C SCREENING HIV TEST OFFERED TO PATIENT:YES DATE OFFERED:06/28/2018 TEST ACCEPTED:NO HEP-C TEST OFFERED TO PATIENT:YES DATE OFFERED:06/28/2018 REASON:PATIENT DECLINED TEST ACCEPTED:NO REASON:PATIENT DECLINED BROCHURE PROVIDED TO PATIENTNO OTHERS AT HOME: SPOUSE. EDUCATION LEVEL OF EDUCATION:FINISHED HIGH SCHOOL DIET: REGULAR. LANGUAGE LANGUAGES SPOKEN:[place] BMI CARE GOAL FOLLOW-UP ABOVE NORMAL BMI FOLLOW-UPDIETARY MANAGEMENT EDUCATION, GUIDANCE, AND COUNSELING RECREATIONAL DRUG USE DRUG USE?NO EXERCISE: NO REGULAR EXERCISE,. LEARNING BARRIERS / SPECIAL NEEDS BARRIERS TO LEARNING?NO HEARING IMPAIRED?NO VISION IMPAIRED?YES COGNITIVELY IMPAIRED?NO :CORRECTIVE LENSES GLASSES READINESS TO LEARN?YES LEARNING PREFERENCES?NO LEARNING CAPABILITIES PRESENT?YES EMOTIONAL BARRIERS?NO SPECIAL DEVICES?NO RIDE OPERATOR NEEDED?NO LUNG CANCER SCREENING SMOKING STATUS:CURRENT SMOKER PAIN CLINIC PFS, CLERGY, PUBLIC HEALTH REFERRALS WAS THE PROVIDER NOTIFIED OF ANY PERTINENT INFO?YES HAS THE PATIENT BEEN EDUCATED REGARDING HIS/HER PLAN OF CARE?YES HAS THE PATIENT BEEN EDUCATED REGARDING PAIN, THE RISK FOR PAIN, THE IMPORTANCE OF EFFECTIVE PAIN MANAGEMENT, AND THE PAIN ASSESSMENT PROCESS?YES LATEX QUESTIONNAIRE LATEX ALLERGY : HAVE YOU EVER DEVELOPED ANY TYPE OF REACTION AFTER HANDLING LATEX PRODUCTS SUCH RUBBER GLOVES, CONDOMS, DIAPHRAGMS, BALLOONS, SOCKS, OR UNDERWEAR?NO LATEX ALLERGY : HAVE YOU EVER DEVELOPED ANY TYPE OF REACTION DURING OR AFTER DENTAL APPOINTMENT, VAGINAL/RECTAL EXAMINATION, SURGICAL PROCEDURE, OR ANY OTHER EXPOSURE?NO DATE ASKED : 10/22/2018 LATEX RISK : HAVE YOU EVER HAD ANY DIFFICULTY BREATHING OR HIVES AFTER EATING OR HANDLING ANY FRUITS, OR VEGETABLES; SUCH KIWI, BANANAS, STONE FRUITS, OR CHESTNUTSNO LATEX RISK : DO YOU HAVE A PREVIOUS PERSONAL HISTORY OF MORE THAN NINE SURGERIES, SPINA BIFIDA, OR REPEATED CATHERIZATIONS? NO LATEX RISK : ARE YOU FREQUENTLY EXPOSED TO LATEX PRODUCTS IN YOUR OCCUPATION?NO CAFFEINE CAFFEINE USE?YES DAILY COFFEE ADVANCE DIRECTIVE ADVANCE DIRECTIVE DISCUSSED WITH PATIENT:YES NO ADVANCED DIRECTIVES, DOES NOT WANT HCP INFO OR ASSISTANCE WITH FORM CHRISTIANITY [id number] CHRISTIANITY MARITAL STATUS: , . ALCOHOL SCREENING DID YOU HAVE A DRINK CONTAINING ALCOHOL IN THE PAST YEAR?NO POINTS0 INTERPRETATIONNEGATIVE SEXUAL HX HAD SEX IN THE LAST 12 MONTHS (VAGINAL, ORAL, OR ANAL)?NO HAVE YOU EVER HAD AN STD?NO REVIEWED WITH PATIENT 05/17/18 1403 DHDREVIEWED WITH PATIENT 07/06/18 0905 JSREVIEWED WITH PT 01/21/19 0909 BV. HOSPITALIZATION/MAJOR DIAGNOSTIC PROCEDURE SURGERIES HEART PROBLEMS / STROKE / PULMONARY EMBOLISM REVIEW OF SYSTEMS REVIEWED BY: PROVIDER: FARNAZ BENZ . CONSTITUTIONAL: ANY CHANGE IN YOUR MEDICAL CONDITION? NO . CHILLS NO . FEVER NO . INFECTION: DO YOU HAVE NEW INFECTIONS? NO . DO YOU HAVE HISTORY OF MRSA? NO . MUSCULOSKELETAL: ANY NEW PATTERNS OF PAIN OR NUMBNESS? NO . GASTROENTEROLOGY: ANY NEW CHANGE IN BOWEL CONTROL? NO . GENITOURINARY: ANY NEW CHANGE IN BLADDER CONTROL? NO . IS THERE A CHANCE YOU COULD BE ? NO . HEMATOLOGY/LYMPH: DO YOU TAKE ANY BLOOD THINNERS? (FOR EXAMPLE- COUMADIN, PLAVIX, AGGRENOX, PLATEL, PRADAXA, OR XARELTO) YES, PLAVIX AND XARELTO . WHEN WAS YOUR LAST DOSE? DATE: TIME: . NEUROLOGY: HAVE YOU FALLEN IN THE PAST 12 MONTHS? PT DENIES ANY FALLS SINCE LAST VISIT. STATES ALL PREVIOUS FALLS HAVE BEEN DOCUMENTED AT PRIOR VISIT. . ANY NEW EXTREMITY NUMBNESS OR WEAKNESS? NO . CARDIOLOGY: DO YOU HAVE A PACEMAKER OR DEFIBRILLATOR? NO . RESPIRATORY: HAVE YOU BEEN SICK IN THE PAST WEEK? NO . FEVER NO . FLU LIKE SYMPTOMS? NO . COUGH NO . INTEGUMENTARY: DO YOU HAVE ANY RASHES OR OPEN SORES? NO . ALLERGIC/IMMUNO: ARE YOU ALLERGIC TO IV DYE? NO . ANY NEW ALLERGIES? NO . PSYCHIATRIC: DO YOU HAVE THOUGHTS OF HURTING YOURSELF OR SOMEONE ELSE? NO . ARE YOU ABUSED, NEGLECTED, OR IN AN UNSAFE ENVIRONMENT? NO . ENDOCRINOLOGY: ARE YOU DIABETIC? NO . OTHER: DO YOU NEED ANY PRESCRIPTIONS? YES, OXYCODONE 15MG . IF YES, PLEASE LIST: ____ . ANY NEW PROBLEMS WITH YOUR MEDICATIONS? NO . WHEN DID YOU LAST EAT? ____ . WHEN DID YOU LAST DRINK? ____ . WHAT DID YOU LAST DRINK? ____ . NAME OF PERSON DRIVING YOU HOME? ____ . DO YOU HAVE ANY OTHER QUESTIONS OR CONCERNS NO . VITAL SIGNS WT 141.8 LBS, HT 63", BMI 25.12 INDEX, BP 127/65 MM HG, HR 71 /MIN, RR 18 /MIN, TEMP 98.1 F, OXYGEN SAT % 99%, NA INITIALS AW 0904, REVIEWED BY: EM. EXAMINATION GENERAL EXAMINATION: GENERALAWAKE,ALERT ,PLEAASANT . PSYCHAFFECT NORMAL . LUNGS:LUNG CYR ARE CLEAR TO AUSCULTATION BILATERALLY. GOOD MOVEMENT OF AIR . HEART:S1, S2 IN A REGULAR RATE AND RHYTHM. NO SIGNIFICANT MURMURS, RUBS OR GALLOPS NOTED . ASSESSMENTS LUMBAR SPINAL STENOSIS - M48.06 (PRIMARY) TREATMENT LUMBAR SPINAL STENOSIS REFILL OXYCODONE HCL TABLET, 15 MG, 1 TABLET NEEDED, ORALLY, EVERY 4 -6 HRS PRN PAIN MDD=4, 30 DAY(S), 120, REFILLS 0 NOTES: ISTOP REGISTRY REVIEWED AND DEMONSTRATES COMPLLIANCE. BRINGS IN MEDICATIONS WHICH IS APPROPRIATE FOR WHAT WAS DISPENSED. RECENT URINE TOXICOLOGY REVIEWED. NO UNAUTHORIZED MEDICATIONS. NO ILLICIT SUBSTANCES AND PRESCRIBED MEDICATIONS WERE PRESENT. URINE TOX TODAY, [facility] NARCOTIC AGREEMENT WAS UPDATED REVIEWED AND SIGNED TODAY BY THE PATIENT. SEE ATTACHED DOCUMENT FOR FULL DETAILS; SPECIFIC ISSUES WERE REVIEWED: 1) KEEP PAIN MEDS IN THEIR ORIGINAL BOTTLES AND ANY WEEKLY PLANNERS ARE TO BE BROUGHT TO THE PAIN CENTER AT EVERY VISIT. 2) THE PATIENT IS NOT TO INCREASE DOSING OR TIMING OF THEIR PAIN MEDICATION WITHOUT SPECIFIC DIRECTION OF THEIR PAIN CENTERPROVIDER (NOT ER OR OTHER PROVIDERS). 3) ALL PAIN MEDS ARE TO BE KEPT SECURED, IN A LOCKED BOX. 4) NO PAIN MEDS ARE TO BE SHARED WITH ANY OTHER PERSON FOR ANY REASON. 5) NO PAIN MEDS MAY BE TAKEN FROM ANY FRIENDS OR RELATIVES FOR ANY REASON 6) NO MEDS OR SUBSTANCES WHICH ARE NOT LEGAL ARE TO BE USED- NO MARIJUANA, NO COCAINE, AMPHETAMINES, HEROIN, OR OTHERS ARE EVER TO BE USED. 7)URINE TESTING IS DONE TO ACCOUNT FOR MEDS AND SUBSTANCES BEING TAKEN AND WILL BE DONE RANDOMLY., RISKS AND BENEFITS OF NARCOTIC/OPIOD MEDICATIONS WERE REVIEWED WITH PATIENT - THIS INCLUDES BUT IS NOT LIMITED TO RISK OF DEPENDANCE/DEVELOPMENT OF ADDICTION, MOOD DISTURBANCE AND DEPRESSION, OSTEOPOROSIS, HORMONAL AND LABIDAL CHANGES, RESPIRATORY DEPRESSION AND . PATIENT IS ADVISED NOT TO DRIVE OR DRINK ALCOHOL WHILE ON THESE MEDICATIONS. PROCEDURE CODES FA211 ESTABILISHED PATIENT [facility] CHARGE DISPOSITION & COMMUNICATION FOLLOW UP 3 MONTHS (REASON: MED MGMNT) ELECTRONICALLY SIGNED BY DEMAR LLAMAS ON 02/07/2019 AT 12:55 PM EDT DISCLAIMER : THIS IS A VISIT SUMMARY EXTRACTED FROM THE [employer] CHART. IT IS NOT A COPY OF THE [employer] PROGRESS NOTE. AUGUSTUS
== END ==
LOC: M PAIN 09:00
PROVIDERS: ATTEND Nurse Practitioner Family
DX: M48.061 Spinal stenosis, lumbar region without neurogenic claudication (principal); G89.29 Other chronic pain; I25.2 Old myocardial infarction; Z86.711 Personal history of pulmonary embolism; M19.90 Unspecified osteoarthritis, unspecified site; E03.9 Hypothyroidism, unspecified; Z86.59 Personal history of other mental and behavioral disorders; Z95.5 Presence of coronary angioplasty implant and graft; Z96.643 Presence of artificial hip joint, bilateral; F17.210 Nicotine dependence, cigarettes, uncomplicated; Z88.6 Allergy status to analgesic agent; Z88.7 Allergy status to serum and vaccine; Z88.8 Allergy status to other drugs, medicaments and biological substances; Z79.01 Long term (current) use of anticoagulants; Z79.899 Other long term (current) drug therapy

== ENCOUNTER → 2019-03-03 | Outpatient (REF) | payer MEDICARE, MEDICAID ==
[~2019-03-03] MED LIST changes: +AMLO2.5T3; +CLOP75TA2; +LORA0.5T11; +QUET1TAB7; +REPA1.7I; +ROSU10TA6
[2019-03-03 12:28] LABS: BASO % 0.5 % (0.0-1.0); EOS # 0.1 10^3/uL (0.0-0.5); EOS % 1.1 % (0.0-3.0); HEMATOCRIT 43.1 % (36.0-47.0); HEMOGLOBIN 14.4 g/dl (12.0-15.5); LYMPH # 2.7 10^3/uL (1.5-5.0); LYMPH % 36.6 % (24.0-44.0); MEAN CORPUSCULAR HEMOGLOBIN 31.5 pg (27.0-33.0); MEAN CORPUSCULAR HGB CONC 33.4 g/dl (32.0-36.5); MEAN CORPUSCULAR VOLUME 94.3 fl (80.0-96.0); MONO # 0.7 10^3/uL (0.0-0.8); MONO % 9.7 % (0.0-5.0); NEUTROPHILS # 3.9 10^3/uL (1.5-8.5); NEUTROPHILS % 51.8 % (36.0-66.0); PLATELET COUNT, AUTOMATED 234 10^3/uL (150-450); RED BLOOD COUNT 4.57 10^6/uL (4.00-5.40); WHITE BLOOD COUNT 7.5 10^3/uL (4.0-10.0)
[2019-03-03 12:39] LABS: ALBUMIN 3.5 GM/DL (3.2-5.2); ALT/SGPT 15 U/L (12-78); BILIRUBIN,TOTAL 0.6 MG/DL (0.2-1.0); BLOOD UREA NITROGEN 7 MG/DL (7-18); CARBON DIOXIDE LEVEL 30 MEQ/L (21-32); CHLORIDE LEVEL 104 MEQ/L (98-107); FOLATE 6.5 NG/ML; GLOMERULAR FILTRATION RATE > 60.0 (>51); GLUCOSE, FASTING 95 MG/DL (70-100); POTASSIUM SERUM 4.5 MEQ/L (3.5-5.1); SODIUM LEVEL 141 MEQ/L (136-145); THYROID STIMULATING HORMONE 0.462 uIU/ML (0.358-3.740); TOTAL PROTEIN 6.6 GM/DL (6.4-8.2); VITAMIN B12 LEVEL 174 PG/ML
[2019-03-03 13:19] LABS: HEMOGLOBIN A1c 5.6 %
[2019-03-04 10:49] LABS: HIV 1&2 SCREEN CENTAUR NEGATIVE (NEGATIVE)
[2019-03-05 00:06] LABS: ANA (HEP2) Negative (.)
[2019-03-07 00:07] LABS: Lyme Disease IgG/IgM Antibodie <0.91 ISR (0.00-0.90); Lyme Disease IgM Ab Quantitati <0.80 index (0.00-0.79); Methylmalonic Acid 171 nmol/L (0-378)
== END ==
LOC: M SFHCLERA 09:17
PROVIDERS: ATTEND Family Medicine
DX: R20.2 Paresthesia of skin (principal); Z12.39 Encounter for other screening for malignant neoplasm of breast
CPT/HCPCS: 80053; 82607; 82746; 83036; 83921; 84443; 85025; 85652; 86038; 86617; 87389; G0463

== ENCOUNTER 2019-03-07 14:30 | Emergency (ER) | payer MEDICARE, MEDICAID ==
[~2019-03-07] VITALS: Ht 160 cm; Wt 61.9 kg
[~2019-03-07 14:30] MED LIST changes: -AMLO2.5T3; -CLOP75TA2; -LORA0.5T11; -QUET1TAB7; -REPA1.7I; -ROSU10TA6
[2019-03-07] MEDS ORDERED: LORA0.5T11 (14:46)
[2019-03-07] MEDS ORDERED: CLOP75TA2 (14:46)
[2019-03-07] MEDS ORDERED: REPA1.7I (14:46)
[2019-03-07] MEDS ORDERED: QUET1TAB7 (14:46)
[2019-03-07] MEDS ORDERED: AMLO2.5T3 (14:46)
[2019-03-07] MEDS ORDERED: ROSU10TA6 (14:46)
[2019-03-07 15:17] LABS: BASO % 0.4 % (0.0-1.0); EOS # 0.1 10^3/uL (0.0-0.5); HEMATOCRIT 44.4 % (36.0-47.0); HEMOGLOBIN 15.3 g/dl (12.0-15.5); LYMPH # 3.3 10^3/uL (1.5-5.0); LYMPH % 41.5 % (24.0-44.0); MEAN CORPUSCULAR HEMOGLOBIN 32.3 pg (27.0-33.0); MEAN CORPUSCULAR HGB CONC 34.5 g/dl (32.0-36.5); MEAN CORPUSCULAR VOLUME 93.7 fl (80.0-96.0); MONO # 0.5 10^3/uL (0.0-0.8); NEUTROPHILS % 50.8 % (36.0-66.0); PLATELET COUNT, AUTOMATED 225 10^3/uL (150-450); RED BLOOD COUNT 4.74 10^6/uL (4.00-5.40); WHITE BLOOD COUNT 7.9 10^3/uL (4.0-10.0)
--- NOTE | 2019-03-07 15:20 | REP ---
CHEST, SINGLE VIEW: There is no evidence of acute infiltrate. No pleural effusion is seen. The heart is normal in size. The mediastinal silhouette is unremarkable. The visualized osseous structures are intact. Sternal wires are noted. There is calcification of the thoracic aorta. IMPRESSION: No acute pulmonary disease. Electronically Signed by Dimitry Stevens MD 03/07/2019 04:24 P
[2019-03-07 15:42] LABS: BLOOD UREA NITROGEN 8 MG/DL (7-18); CALCIUM LEVEL 9.2 MG/DL (8.5-10.1); CARBON DIOXIDE LEVEL 27 MEQ/L (21-32); CHLORIDE LEVEL 107 MEQ/L (98-107); CK-MB VALUE MASS < 1.0 NG/ML (<3.6); CPK CREATINE PHOSPHOKINASE 61 U/L (26-192); CREATININE FOR GFR 0.61 MG/DL (0.55-1.30); GLOMERULAR FILTRATION RATE > 60.0 (>51); GLUCOSE, FASTING 138 MG/DL (70-100); MB/CK RELATIVE INDEX 1.64 (< OR =4); POTASSIUM SERUM 3.8 MEQ/L (3.5-5.1); SODIUM LEVEL 141 MEQ/L (136-145); TROPONIN I < 0.02 NG/ML (< 0.10)
[2019-03-07] MEDS ORDERED: NS 1,000 ML IV ONE (16:15)
[2019-03-07] MEDS ORDERED: MORPHINE 2 MG/ML 1ML SYRINGE (J2270) IV PRN (16:15)
[2019-03-07] MEDS ORDERED: HEPARIN DRIP 25,000 UNITS in IV 1 EA IV SCH (16:16)
[2019-03-07] MEDS ORDERED: HEPARIN SOD (PORCINE) 5000 UNITS/ML VIAL IV ONE (16:30)
[2019-03-07] MEDS ORDERED: NS 1,000 ML IV SCH (16:30)
[2019-03-07] MEDS ORDERED: ONDANSETRON 4MG/2ML VIAL (J2405) IV ONE (16:30)
[2019-03-07 16:32] LABS: INR 1.17; PROTHROMBIN TIME 14.6 SECONDS (11.8-14.0)
[2019-03-07 16:33] LABS: PARTIAL THROMBOPLASTIN TIME 32.2 SECONDS (25.0-38.4)
[2019-03-07 17:23] VITALS: BP 121/56
--- NOTE | 2019-03-08 04:59 | ECGEPIP ---
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
== END 2019-03-07 17:26 | disposition short-term general hospital (02) ==
LOC: M ED 14:30
DX: I20.0 Unstable angina (principal); R06.02 Shortness of breath; R11.0 Nausea; Z95.1 Presence of aortocoronary bypass graft; Z95.5 Presence of coronary angioplasty implant and graft; E03.9 Hypothyroidism, unspecified; G43.909 Migraine, unspecified, not intractable, without status migrainosus; D66 Hereditary factor VIII deficiency; Z86.711 Personal history of pulmonary embolism; Z86.718 Personal history of other venous thrombosis and embolism; F17.200 Nicotine dependence, unspecified, uncomplicated; Z88.8 Allergy status to other drugs, medicaments and biological substances; Z88.7 Allergy status to serum and vaccine; Z91.048 Other nonmedicinal substance allergy status; Z79.899 Other long term (current) drug therapy; Z79.01 Long term (current) use of anticoagulants; Z79.02 Long term (current) use of antithrombotics/antiplatelets; Z82.49 Family history of ischemic heart disease and other diseases of the circulatory system
CPT/HCPCS: 71045; 80048; 82550; 82553; 84484; 85025; 85610; 85730; 93005; 93041; 94760; 96374; 96375; 99285; J2270; J2405

== ENCOUNTER → 2019-04-07 | Outpatient (CLI) | payer MEDICARE, MEDICAID ==
[~2019-04-07] MED LIST changes: +AMLO2.5T3; +CLOP75TA2; +LORA0.5T11; +QUET1TAB7; +REPA1.7I; +ROSU10TA6
--- NOTE | 2019-04-07 16:29 | REP ---
Abdomen series: Five views. History: Stomach pain. Comparison chest x-ray March 07, 2019. Findings: Upright chest radiograph shows median sternotomy wires. There are surgical clips in the thyroid bed bilaterally as well. The lungs are well inflated and clear. There is no evidence of infiltrate or free subdiaphragmatic air. Heart is not enlarged. Supine and erect views of the abdomen show a normal bowel gas pattern. No large or small bowel dilation is seen. There are surgical clips in the pelvis and right upper quadrant. Vascular calcification is noted. Bilateral hip arthroplasties are noted. Psoas margins and flank stripes are intact. Impression: Postoperative changes. No evidence of obstruction or free air. No active disease in the chest. Electronically Signed by Jam Aragno MD 04/07/2019 06:30 P
== END ==
LOC: M LRY 11:46
PROVIDERS: ATTEND Family Medicine
DX: R10.9 Unspecified abdominal pain (principal)
CPT/HCPCS: 74021; 90471; 90682; G0463

== ENCOUNTER → 2019-04-07 | Outpatient (REF) | payer MEDICARE, MEDICAID ==
[2019-04-07 16:29] LABS: BASO # 0.1 10^3/uL (0.0-0.2); BASO % 0.6 % (0.0-1.0); EOS # 0.1 10^3/uL (0.0-0.5); EOS % 1.1 % (0.0-3.0); HEMOGLOBIN 15.1 g/dl (12.0-15.5); LYMPH # 2.7 10^3/uL (1.5-5.0); LYMPH % 34.9 % (24.0-44.0); MEAN CORPUSCULAR HEMOGLOBIN 31.6 pg (27.0-33.0); MEAN CORPUSCULAR HGB CONC 32.8 g/dl (32.0-36.5); MEAN CORPUSCULAR VOLUME 96.2 fl (80.0-96.0); MONO # 0.5 10^3/uL (0.0-0.8); MONO % 6.9 % (0.0-5.0); NEUTROPHILS # 4.4 10^3/uL (1.5-8.5); NEUTROPHILS % 56.2 % (36.0-66.0); PLATELET COUNT, AUTOMATED 238 10^3/uL (150-450); RED BLOOD COUNT 4.78 10^6/uL (4.00-5.40); WHITE BLOOD COUNT 7.8 10^3/uL (4.0-10.0)
[2019-04-07 16:36] LABS: ALBUMIN 3.5 GM/DL (3.2-5.2); ALT/SGPT 12 U/L (12-78); BILIRUBIN,TOTAL 0.8 MG/DL (0.2-1.0); BLOOD UREA NITROGEN 8 MG/DL (7-18); CALCIUM LEVEL 9.1 MG/DL (8.5-10.1); CARBON DIOXIDE LEVEL 33 MEQ/L (21-32); CHLORIDE LEVEL 104 MEQ/L (98-107); CREATININE FOR GFR 0.66 MG/DL (0.55-1.30); GLOMERULAR FILTRATION RATE > 60.0 (>51); GLUCOSE, FASTING 108 MG/DL (70-100); POTASSIUM SERUM 4.3 MEQ/L (3.5-5.1); SODIUM LEVEL 141 MEQ/L (136-145); TOTAL PROTEIN 6.6 GM/DL (6.4-8.2)
== END ==
LOC: M SFHCLERA 11:27
PROVIDERS: ATTEND Family Medicine
DX: R10.9 Unspecified abdominal pain (principal)

== ENCOUNTER → 2019-04-22 | Outpatient (CLI) | payer MEDICARE, MEDICAID ==
--- NOTE | 2019-05-04 05:47 | ECWPNPC ---
PATIENT NAME: WALTER WISE : 1965 GENDER: FEMALE VISIT DATE: 04/22/2019 DISCHARGE DATE: 04/22/19930 VISIT LOCKED DATE TIME: PHYSICIAN: FARNAZ BLEVINS RESOURCE: FARNAZ BLEVINS REASON FOR APPOINTMENT 1. MED MGMT HISTORY OF PRESENT ILLNESS HISTORY OF PRESENT ILLNESS: HERE FOR F/U OF CHRONIC LOW BACK PAIN AND LEFT GROIN AND SHOULDER PAIN.RATING PAIN VAS 4/10.PAIN IS DESCRIBED CONTINUOUS AND ACHING.HISTORY OF MULTIPLE COMORBIDITIES.FINDS CURRENT MEDICATION EFFECTIVE AT REDUCING PAIN AND KEEPING HER COMFORTABLE.SHE HAS BEEN EXPERIENCING AN INCREASE IN LOW BACK PAIN OVER THIS PAST YEAR.FINDS IT DIFFICULT TO AMBULATE DUE TO LBP.CURRENTLY UNDER CLOSE F/U WITH -CARDIOLOGY FOR POSSIBLE CARDIAC SURGERY AND HAS HAD CHOLESTEROL LOWERING AGENT MEDICATION CHANGES OF RECENT.RECENT CARDIAC CATH REVEALING SOME BLOCKAGE OF CURRENT CARDIAC STENTS. PAIN THE PATIENT DESCRIBES THE PAIN... THE PATIENT DESCRIBES THE PAIN... THE PATIENT DESCRIBES THE PAIN... FALL RISK SCREENING: SCREENING :NO FALLS REPORTED IN THE LAST YEAR CURRENT MEDICATIONS TAKING FLONASE ALLERGY RELIEF 50 MCG/ACT SUSPENSION 1 SPRAY IN EACH NOSTRIL NASALLY ONCE A DAY NEEDED TAKING METOPROLOL SUCCINATE ER 100 MG TABLET EXTENDED RELEASE 24 HOUR 1 TABLET ORALLY ONCE DAILY TAKING XARELTO 20 MG TABLET 1 TABLET ORALLY ONCE A DAY TAKING ZOFRAN ODT 8 MG TABLET DISPERSIBLE 1 TAB(S) ORALLY THREE TIMES DAILY NEEDED TAKING LORAZEPAM 0.5 MG TABLET 1 TABLET NEEDED ORALLY TID (MDD;3) TAKING PROAIR HFA 108 (90 BASE) MCG/ACT AEROSOL SOLUTION 2 PUFFS NEEDED INHALATION EVERY 6 HRS TAKING LEVOTHYROXINE SODIUM 100 MCG TABLET 1 TABLET ON AN EMPTY STOMACH IN THE MORNING ORALLY DAILY TAKING AMLODIPINE BESYLATE 2.5 MG TABLET 1 TABLET ORALLY ONCE A DAY, NOTES: SLESKA TAKING REPATHA 140 MG/ML SOLUTION PREFILLED SYRINGE 1 ML SUBCUTANEOUS , NOTES: SLESKA TAKES EVERY 2 WEEKS TAKING ROSUVASTATIN CALCIUM 10 MG TABLET 1 TABLET ORALLY ONCE A DAY TAKING SEROQUEL 25 MG TABLET 1 TABLET AT BEDTIME ORALLY ONCE A DAY TAKING VITAMIN B12 1000 MCG TABLET EXTENDED RELEASE 1 TABLET ORALLY ONCE A DAY TAKING OMEPRAZOLE 20 MG CAPSULE DELAYED RELEASE 1 CAPSULE ORALLY ONCE A DAY TAKING OXYCODONE HCL 15 MG TABLET 1 TABLET NEEDED ORALLY EVERY 4 -6 HRS PRN PAIN MDD=4 NOT-TAKING PLAVIX 75 MG TABLET 1 TABLET ORALLY ONCE A DAY DISCONTINUED ONDANSETRON 8 TABLET DISINTEGRATING DISSOLVE 1 TABLET BY MOUTH THREE TIMES DAILY NEEDED FOR NAUSEA MEDICATION LIST REVIEWED AND RECONCILED WITH THE PATIENT PAST MEDICAL HISTORY HI/CABG/UNSTABLE ANGINA/MULTIPLE STENT PLACEMENTS RCA 2001 2002 2003 2004 2009 =- [facility] HISTORY OF CVA 2002 PULMONARY EMBOLISM 2007/HISTORY OF RECURRENT DVT OSTEOARTHRITIS ELEVATED FACTOR VIII HISTORY OF RENAL STONE HYPOTHYROIDISM/STATUS POST THYROIDECTOMY FOR THYROID CANCER CONSTIPATION ABNORMAL PAP SMEAR - YESSI I WITH + HPV - FOLLOWS AT [facility] UNSPECIFIED URINARY CALCULUS 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 DYSFUNCTION CHRONIC MIGRAINE WITHOUT AURA, WITH INTRACTABLE MIGRAINE, SO STATED, WITHOUT MENTION OF STATUS MIGRAINOSUS ESOPHAGEAL REFLUX DEPRESSIVE DISORDER, NOT ELSEWHERE CLASSIFIED VITAMIN D DEFICIENCY TOBACCO DEPENDENCE ALLERGIES [id number] PERTUSSIS: ANAPHYLAXIS - ALLERGY ALL METALS: SEVERE SWELLING - ALLERGY NITROGLYCERIN: HYPOTENSION - SIDE EFFECTS IBUPROFEN: STOMACH PAIN - SIDE EFFECTS SURGICAL HISTORY 1982 1985 TRIPLE BYPASS 2004 STERNOTOMY WIRE REMOVAL 2005 REMOVAL OF ABDOMINAL ADHESIONS 2007 THYROIDECTOMY 2008 LAPAROSCOPIC CHOLECYSTECTOMY 2009 FAUSTINA FUNDOPLICATION 2009 SACRAL TUMOR REMOVED 08/05 COLPOSCOPY [facility], THEN [facility] - DR CENTENO 03/05 STENT IN HEART IN [place] 01/2015 7 STENTS AND A BALOON AT [facility] 02/2015 3 CARDIAC STENTS 11/01/2015 EXPLORATORY ON R HIP 12/2016 RIGHT TOTAL HIP REPLACEMENT 03/2017 LEFT TOTAL HIP REPLACEMENT 12/07/17 CARDIAC CATH 03/2018 CYSTOSCOPY 08/2018 HEART CATHORIZATION 03/07/2019 FAMILY HISTORY FATHER: 34 YRS, DIAGNOSED WITH UNSPECIFIED HEART DISEASE MOTHER: 65 YRS, LUNG CANCER, UNSPECIFIED HEART DISEASE, OTHER MALIGNANT NEOPLASM OF UNSPECIFIED SITE MATERNAL GRAND MOTHER: BREAST CANCER THEN METS, OTHER MALIGNANT NEOPLASM OF UNSPECIFIED SITE BROTHER: ALIVE, DIAGNOSED WITH UNSPECIFIED HEART DISEASE 2 SON(S) . BOTH CHILDREN ARE \\N\\NYOUNGEST (BOY)- 2 1\\/2 MELANOMA\\NOLDEST (BOY)- 18 LIVER CANCER. SOCIAL HISTORY GENERAL: TOBACCO USE ARE YOU A:CURRENT SMOKER MOSTLY VAP ARE YOU INTERESTED IN QUITTING?NOT READY TO QUIT COUNSELED THE PATIENT ON SMOKING EFFECTS, EDUCATION [id number]/01/2019 HOW MANY CIGARETTES A DAY DO YOU SMOKE?5 OR LESS PATIENT COUNSELED ON THE DANGERS OF TOBACCO USE AND URGED TO QUIT:01/11/2019 HIV / HEP-C SCREENING HIV TEST OFFERED TO PATIENT:YES DATE OFFERED:04/07/2019 TEST ACCEPTED:NO HEP-C TEST OFFERED TO PATIENT:YES DATE OFFERED:04/07/2019 REASON:PATIENT DECLINED TEST ACCEPTED:NO REASON:PATIENT DECLINED BROCHURE PROVIDED TO PATIENTNO OTHERS AT HOME: SISTER. EDUCATION LEVEL OF EDUCATION:FINISHED HIGH SCHOOL DIET: REGULAR. LANGUAGE LANGUAGES SPOKEN:[place] BMI CARE GOAL FOLLOW-UP ABOVE NORMAL BMI FOLLOW-UPDIETARY MANAGEMENT EDUCATION, GUIDANCE, AND COUNSELING RECREATIONAL DRUG USE DRUG USE?NO EXERCISE: NO REGULAR EXERCISE,. LEARNING BARRIERS / SPECIAL NEEDS BARRIERS TO LEARNING?NO HEARING IMPAIRED?NO VISION IMPAIRED?YES COGNITIVELY IMPAIRED?NO :CORRECTIVE LENSES GLASSES READINESS TO LEARN?YES LEARNING PREFERENCES?NO LEARNING CAPABILITIES PRESENT?YES EMOTIONAL BARRIERS?NO SPECIAL DEVICES?NO CASINO SHIFT MANAGER NEEDED?NO LUNG CANCER SCREENING SMOKING STATUS:CURRENT SMOKER PAIN CLINIC PFS, CLERGY, PUBLIC HEALTH REFERRALS WAS THE PROVIDER NOTIFIED OF ANY PERTINENT INFO?YES HAS THE PATIENT BEEN EDUCATED REGARDING HIS/HER PLAN OF CARE?YES HAS THE PATIENT BEEN EDUCATED REGARDING PAIN, THE RISK FOR PAIN, THE IMPORTANCE OF EFFECTIVE PAIN MANAGEMENT, AND THE PAIN ASSESSMENT PROCESS?YES LATEX QUESTIONNAIRE LATEX ALLERGY : HAVE YOU EVER DEVELOPED ANY TYPE OF REACTION AFTER HANDLING LATEX PRODUCTS SUCH RUBBER GLOVES, CONDOMS, DIAPHRAGMS, BALLOONS, SOCKS, OR UNDERWEAR?NO LATEX ALLERGY : HAVE YOU EVER DEVELOPED ANY TYPE OF REACTION DURING OR AFTER DENTAL APPOINTMENT, VAGINAL/RECTAL EXAMINATION, SURGICAL PROCEDURE, OR ANY OTHER EXPOSURE?NO DATE ASKED : 10/22/2018 LATEX RISK : HAVE YOU EVER HAD ANY DIFFICULTY BREATHING OR HIVES AFTER EATING OR HANDLING ANY FRUITS, OR VEGETABLES; SUCH KIWI, BANANAS, STONE FRUITS, OR CHESTNUTSNO LATEX RISK : DO YOU HAVE A PREVIOUS PERSONAL HISTORY OF MORE THAN NINE SURGERIES, SPINA BIFIDA, OR REPEATED CATHERIZATIONS? NO LATEX RISK : ARE YOU FREQUENTLY EXPOSED TO LATEX PRODUCTS IN YOUR OCCUPATION?NO CAFFEINE CAFFEINE USE?YES DAILY COFFEE ADVANCE DIRECTIVE ADVANCE DIRECTIVE DISCUSSED WITH PATIENT:YES NO ADVANCED DIRECTIVES, DOES NOT WANT HCP INFO OR ASSISTANCE WITH FORM VOODOO [id number] SABIANIST MARITAL STATUS: . ALCOHOL SCREENING DID YOU HAVE A DRINK CONTAINING ALCOHOL IN THE PAST YEAR?NO POINTS0 INTERPRETATIONNEGATIVE SEXUAL HX HAD SEX IN THE LAST 12 MONTHS (VAGINAL, ORAL, OR ANAL)?NO HAVE YOU EVER HAD AN STD?NO REVIEWED WITH PATIENT 05/17/18 0892 DHDREVIEWED WITH PATIENT 07/06/18 0905 JSREVIEWED WITH PT 01/21/19 0909 BV. HOSPITALIZATION/MAJOR DIAGNOSTIC PROCEDURE SURGERIES HEART PROBLEMS / STROKE / PULMONARY EMBOLISM [facility] 03/07/19-03/10/19 REVIEW OF SYSTEMS REVIEWED BY: PROVIDER: FARNAZ BENZ . CONSTITUTIONAL: ANY CHANGE IN YOUR MEDICAL CONDITION? NO . CHILLS NO . FEVER NO . INFECTION: DO YOU HAVE NEW INFECTIONS? NO . DO YOU HAVE HISTORY OF MRSA? NO . MUSCULOSKELETAL: ANY NEW PATTERNS OF PAIN OR NUMBNESS? NO . GASTROENTEROLOGY: ANY NEW CHANGE IN BOWEL CONTROL? NO . GENITOURINARY: ANY NEW CHANGE IN BLADDER CONTROL? NO . IS THERE A CHANCE YOU COULD BE ? NO . HEMATOLOGY/LYMPH: DO YOU TAKE ANY BLOOD THINNERS? (FOR EXAMPLE- COUMADIN, PLAVIX, AGGRENOX, PLATEL, PRADAXA, OR XARELTO) YES, XARELTO . WHEN WAS YOUR LAST DOSE? DATE: TIME: . NEUROLOGY: HAVE YOU FALLEN IN THE PAST 12 MONTHS? YES, PT FELL FROM PAIN IN RIGHT LEG PT DENIES INJURIES . ANY NEW EXTREMITY NUMBNESS OR WEAKNESS? NO . CARDIOLOGY: DO YOU HAVE A PACEMAKER OR DEFIBRILLATOR? NO . RESPIRATORY: HAVE YOU BEEN SICK IN THE PAST WEEK? NO . FEVER NO . FLU LIKE SYMPTOMS? NO . COUGH NO . INTEGUMENTARY: DO YOU HAVE ANY RASHES OR OPEN SORES? NO . ALLERGIC/IMMUNO: ARE YOU ALLERGIC TO IV DYE? NO . ANY NEW ALLERGIES? NO . PSYCHIATRIC: DO YOU HAVE THOUGHTS OF HURTING YOURSELF OR SOMEONE ELSE? NO . ARE YOU ABUSED, NEGLECTED, OR IN AN UNSAFE ENVIRONMENT? NO . ENDOCRINOLOGY: ARE YOU DIABETIC? YES . OTHER: DO YOU NEED ANY PRESCRIPTIONS? NO . IF YES, PLEASE LIST: ____ . ANY NEW PROBLEMS WITH YOUR MEDICATIONS? NO . WHEN DID YOU LAST EAT? ____ . WHEN DID YOU LAST DRINK? ____ . WHAT DID YOU LAST DRINK? ____ . NAME OF PERSON DRIVING YOU HOME? ____ . DO YOU HAVE ANY OTHER QUESTIONS OR CONCERNS RECEIVED FLU VACCINE 04/07/19. PT STATES SHE WAS HAVING CHEST PAIN, HEART CATH DONE 05/07/19 AT [facility], OPEN HEART SURGERY IS PLANNED FOR THE FUTURE . VITAL SIGNS WT 142.0 LBS, HT 63", BMI 25.15 INDEX, BP 130/77 MM HG, HR 59 /MIN, RR 18 /MIN, TEMP 97.2 F, OXYGEN SAT % 97%, NA INITIALS AW 0855, REVIEWED BY: ALE. EXAMINATION GENERAL EXAMINATION: GENERALAWAKE,ALERT ,PLEAASANT . PSYCHAFFECT NORMAL . LUNGS:LUNG CYR ARE CLEAR TO AUSCULTATION BILATERALLY. GOOD MOVEMENT OF AIR . HEART:S1, S2 IN A REGULAR RATE AND RHYTHM. NO SIGNIFICANT MURMURS, RUBS OR GALLOPS NOTED . ASSESSMENTS SPINAL STENOSIS OF LUMBAR REGION AT MULTIPLE LEVELS - M48.061 (PRIMARY) TREATMENT SPINAL STENOSIS OF LUMBAR REGION AT MULTIPLE LEVELS REFILL OXYCODONE HCL TABLET, 15 MG, 1 TABLET NEEDED, ORALLY, EVERY 4 -6 HRS PRN PAIN MDD=4, 30 DAY(S), 120, REFILLS 0 NOTES: BRIEFLY DISCUSSED M.I.L.D PROCEDURE-[facility]COM[facility]ILL CONSIDER MRI L/S SPINE IN FUTURE WHEN WE CAN CONSIDER M.I.L.D PROCEDURE WITH CARDIAC CLEARANCE, ISTOP REGISTRY REVIEWED AND DEMONSTRATES COMPLLIANCE. BRINGS IN MEDICATIONS WHICH IS APPROPRIATE FOR WHAT WAS DISPENSED. RECENT URINE TOXICOLOGY REVIEWED. NO UNAUTHORIZED MEDICATIONS. NO ILLICIT SUBSTANCES AND PRESCRIBED MEDICATIONS WERE PRESENT. URINE TOX TODAY, RISKS OF NARCOTIC/OPIOD MEDICATIONS INCLUDES BUT IS NOT LIMITED TO RISK OF DEPENDANCE/DEVELOPMENT OF ADDICTION, MOOD DISTURBANCE AND DEPRESSION, OSTEOPOROSIS, HORMONAL AND LABIDAL CHANGES, RESPIRATORY DEPRESSION AND . PATIENT IS ADVISED NOT TO DRIVE OR DRINK ALCOHOL WHILE ON THESE MEDICATIONS. PROCEDURE CODES FA211 ESTABILISHED PATIENT [facility] CHARGE DISPOSITION & COMMUNICATION FOLLOW UP 2 MONTHS ELECTRONICALLY SIGNED BY DEMAR LLAMAS ON 05/03/2019 AT 02:27 PM EST DISCLAIMER : THIS IS A VISIT SUMMARY EXTRACTED FROM THE [employer] CHART. IT IS NOT A COPY OF THE [employer] PROGRESS NOTE. AUGUSTUS
== END ==
LOC: M PAIN 09:00
PROVIDERS: ATTEND Nurse Practitioner Family
DX: M48.061 Spinal stenosis, lumbar region without neurogenic claudication (principal); G89.29 Other chronic pain; I25.2 Old myocardial infarction; E03.9 Hypothyroidism, unspecified; G43.909 Migraine, unspecified, not intractable, without status migrainosus; K21.9 Gastro-esophageal reflux disease without esophagitis; F17.210 Nicotine dependence, cigarettes, uncomplicated; Z86.711 Personal history of pulmonary embolism; Z86.59 Personal history of other mental and behavioral disorders; Z96.643 Presence of artificial hip joint, bilateral; Z88.6 Allergy status to analgesic agent; Z88.7 Allergy status to serum and vaccine; Z88.8 Allergy status to other drugs, medicaments and biological substances; Z91.09 Other allergy status, other than to drugs and biological substances; Z95.5 Presence of coronary angioplasty implant and graft; Z79.01 Long term (current) use of anticoagulants; Z79.899 Other long term (current) drug therapy

== ENCOUNTER → 2019-06-24 | Outpatient (CLI) | payer MEDICARE, MEDICAID ==
[~2019-06-24] MED LIST changes: -LORA0.5T11; +LORA0.5T5; -REPA1.7I; +REPA140I
--- NOTE | 2019-07-12 06:42 | ECWPNPC ---
PATIENT NAME: WALTER WISE : 1965 GENDER: FEMALE VISIT DATE: 06/24/2019 DISCHARGE DATE: 06/24/19940 VISIT LOCKED DATE TIME: PHYSICIAN: FARNAZ BLEVINS RESOURCE: FARNAZ BLEVINS REASON FOR APPOINTMENT 1. MED MGMT HISTORY OF PRESENT ILLNESS HISTORY OF PRESENT ILLNESS: HERE FOR F/U OF CHRONIC GENERALIZED BACK PAIN.COMPLAINING OF INCREASE IN LOW BACK PAIN AND GENERALIZED BACK PAIN.PAIN HAS BECOME PROGRESSIVLEY WORSE OVER THE PAST YEAR.DENIES PRECIPITATING EVENT.SHE IS ASKING FOR A REFERRAL TO [facility],DR MUNGUIA FOR SURGICAL EVALUATION.HAS FAILED PT AND INJECTION TRIALS.SHE IS STATUS POST HIP REPLACEMENT BILAT IN 2017 AND 2018.SHE IS ON XARELTO AND PLAVIX THAT CARDIOLOGY WILL NOT LET HER INTERUPT FOR INTERVENTIONAL INJECTION TRIALS.HAS HISTORY OF FACTOR 8 DYSCRASIA,HX OF DVT,PULMONARY EMBOLI,AND CARDIAC STENTS X17.HISTORY OF 4 UT'S FIRST BEING AT AGE 35. PAIN THE PATIENT DESCRIBES THE PAIN... FALL RISK SCREENING: SCREENING :NO FALLS REPORTED IN THE LAST YEAR CURRENT MEDICATIONS TAKING FLONASE ALLERGY RELIEF 50 MCG/ACT SUSPENSION 1 SPRAY IN EACH NOSTRIL NASALLY ONCE A DAY NEEDED TAKING METOPROLOL SUCCINATE ER 100 MG TABLET EXTENDED RELEASE 24 HOUR 1 TABLET ORALLY ONCE DAILY TAKING XARELTO 20 MG TABLET 1 TABLET ORALLY ONCE A DAY TAKING ZOFRAN ODT 8 MG TABLET DISPERSIBLE 1 TAB(S) ORALLY THREE TIMES DAILY NEEDED TAKING LORAZEPAM 0.5 MG TABLET 1 TABLET NEEDED ORALLY TID (MDD;3) TAKING PROAIR HFA 108 (90 BASE) MCG/ACT AEROSOL SOLUTION 2 PUFFS NEEDED INHALATION EVERY 6 HRS TAKING LEVOTHYROXINE SODIUM 100 MCG TABLET 1 TABLET ON AN EMPTY STOMACH IN THE MORNING ORALLY DAILY TAKING AMLODIPINE BESYLATE 2.5 MG TABLET 1 TABLET ORALLY ONCE A DAY, NOTES: SLESKA TAKING REPATHA 140 MG/ML SOLUTION PREFILLED SYRINGE 1 ML SUBCUTANEOUS , NOTES: SLESKA TAKES EVERY 2 WEEKS TAKING ROSUVASTATIN CALCIUM 10 MG TABLET 1 TABLET ORALLY ONCE A DAY TAKING VITAMIN B12 1000 MCG TABLET EXTENDED RELEASE 2 TABLET ORALLY ONCE A DAY TAKING OMEPRAZOLE 20 MG CAPSULE DELAYED RELEASE 1 CAPSULE ORALLY ONCE A DAY TAKING OXYCODONE HCL 15 MG TABLET 1 TABLET NEEDED ORALLY EVERY 4 -6 HRS PRN PAIN MDD=4 TAKING PLAVIX 75 MG TABLET 1 TABLET ORALLY ONCE A DAY NOT-TAKING SEROQUEL 25 MG TABLET 1 TABLET AT BEDTIME ORALLY ONCE A DAY MEDICATION LIST REVIEWED AND RECONCILED WITH THE PATIENT PAST MEDICAL HISTORY UT/CABG/UNSTABLE ANGINA/MULTIPLE STENT PLACEMENTS RCA 2001 2002 2003 2004 2009 =- [facility] HISTORY OF CVA 2002 PULMONARY EMBOLISM 2007/HISTORY OF RECURRENT DVT OSTEOARTHRITIS ELEVATED FACTOR VIII HISTORY OF RENAL STONE HYPOTHYROIDISM/STATUS POST THYROIDECTOMY FOR THYROID CANCER CONSTIPATION ABNORMAL PAP SMEAR - YESSI I WITH + HPV - FOLLOWS AT [facility] UNSPECIFIED URINARY CALCULUS 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 DYSFUNCTION CHRONIC MIGRAINE WITHOUT AURA, WITH INTRACTABLE MIGRAINE, SO STATED, WITHOUT MENTION OF STATUS MIGRAINOSUS ESOPHAGEAL REFLUX DEPRESSIVE DISORDER, NOT ELSEWHERE CLASSIFIED VITAMIN D DEFICIENCY TOBACCO DEPENDENCE ALLERGIES [id number] PERTUSSIS: ANAPHYLAXIS - ALLERGY ALL METALS: SEVERE SWELLING - ALLERGY NITROGLYCERIN: HYPOTENSION - SIDE EFFECTS IBUPROFEN: STOMACH PAIN - SIDE EFFECTS SURGICAL HISTORY 1982 1985 TRIPLE BYPASS 2004 STERNOTOMY WIRE REMOVAL 2005 REMOVAL OF ABDOMINAL ADHESIONS 2007 THYROIDECTOMY 2008 LAPAROSCOPIC CHOLECYSTECTOMY 2009 FAUSTINA FUNDOPLICATION 2009 SACRAL TUMOR REMOVED 08/[address] [facility], THEN EL[place] - DR CENTENO 03/05 STENT IN HEART IN [place] 01/2015 7 STENTS AND A BALOON AT [facility] 02/2015 3 CARDIAC STENTS 11/01/2015 EXPLORATORY ON R HIP 12/2016 RIGHT TOTAL HIP REPLACEMENT 03/2017 LEFT TOTAL HIP REPLACEMENT 12/07/17 CARDIAC CATH 03/2018 CYSTOSCOPY 08/2018 HEART CATHORIZATION 03/07/2019 FAMILY HISTORY FATHER: 34 YRS, DIAGNOSED WITH UNSPECIFIED HEART DISEASE MOTHER: 65 YRS, LUNG CANCER, UNSPECIFIED HEART DISEASE, OTHER MALIGNANT NEOPLASM OF UNSPECIFIED SITE MATERNAL GRAND MOTHER: BREAST CANCER THEN METS, OTHER MALIGNANT NEOPLASM OF UNSPECIFIED SITE BROTHER: ALIVE, DIAGNOSED WITH UNSPECIFIED HEART DISEASE 2 SON(S) . BOTH CHILDREN ARE \\N\\NYOUNGEST (BOY)- 2 1 MELANOMA\\NOLDEST (BOY)- 18 LIVER CANCER. SOCIAL HISTORY GENERAL: TOBACCO USE ARE YOU A:CURRENT SMOKER GOING TO BE HYPNOTIZED TO AID IN QUITTING SMOKING ARE YOU INTERESTED IN QUITTING?THINKING ABOUT QUITTING PREVIOUS QUIT ATTEMPTS?YES, WITHIN THE LAST 6 MONTHS. COUNSELED THE PATIENT ON SMOKING CESSATION, EDUCATION [id number]/03/2020 HOW MANY CIGARETTES A DAY DO YOU SMOKE?5 OR LESS PATIENT COUNSELED ON THE DANGERS OF TOBACCO USE AND URGED TO QUIT:06/24/2019 HIV / HEP-C SCREENING HIV TEST OFFERED TO PATIENT:YES DATE OFFERED:04/07/2019 TEST ACCEPTED:NO HEP-C TEST OFFERED TO PATIENT:YES DATE OFFERED:04/07/2019 REASON:PATIENT DECLINED TEST ACCEPTED:NO REASON:PATIENT DECLINED BROCHURE PROVIDED TO PATIENTNO OTHERS AT HOME: SISTER. EDUCATION LEVEL OF EDUCATION:FINISHED HIGH SCHOOL DIET: REGULAR. LANGUAGE LANGUAGES SPOKEN:LIBYAN BMI CARE GOAL FOLLOW-UP ABOVE NORMAL BMI FOLLOW-UPDIETARY MANAGEMENT EDUCATION, GUIDANCE, AND COUNSELING RECREATIONAL DRUG USE DRUG USE?NO EXERCISE: NO REGULAR EXERCISE,. LEARNING BARRIERS / SPECIAL NEEDS BARRIERS TO LEARNING?NO HEARING IMPAIRED?NO VISION IMPAIRED?YES COGNITIVELY IMPAIRED?NO :CORRECTIVE LENSES GLASSES READINESS TO LEARN?YES LEARNING PREFERENCES?NO LEARNING CAPABILITIES PRESENT?YES EMOTIONAL BARRIERS?NO SPECIAL DEVICES?NO ROOM WORKER NEEDED?NO LUNG CANCER SCREENING SMOKING STATUS:CURRENT SMOKER PAIN CLINIC PFS, CLERGY, PUBLIC HEALTH REFERRALS WAS THE PROVIDER NOTIFIED OF ANY PERTINENT INFO?YES HAS THE PATIENT BEEN EDUCATED REGARDING HIS/HER PLAN OF CARE?YES HAS THE PATIENT BEEN EDUCATED REGARDING PAIN, THE RISK FOR PAIN, THE IMPORTANCE OF EFFECTIVE PAIN MANAGEMENT, AND THE PAIN ASSESSMENT PROCESS?YES LATEX QUESTIONNAIRE LATEX ALLERGY : HAVE YOU EVER DEVELOPED ANY TYPE OF REACTION AFTER HANDLING LATEX PRODUCTS SUCH RUBBER GLOVES, CONDOMS, DIAPHRAGMS, BALLOONS, SOCKS, OR UNDERWEAR?NO LATEX ALLERGY : HAVE YOU EVER DEVELOPED ANY TYPE OF REACTION DURING OR AFTER DENTAL APPOINTMENT, VAGINAL/RECTAL EXAMINATION, SURGICAL PROCEDURE, OR ANY OTHER EXPOSURE?NO DATE ASKED : 10/22/2018 LATEX RISK : HAVE YOU EVER HAD ANY DIFFICULTY BREATHING OR HIVES AFTER EATING OR HANDLING ANY FRUITS, OR VEGETABLES; SUCH KIWI, BANANAS, STONE FRUITS, OR CHESTNUTSNO LATEX RISK : DO YOU HAVE A PREVIOUS PERSONAL HISTORY OF MORE THAN NINE SURGERIES, SPINA BIFIDA, OR REPEATED CATHERIZATIONS? NO LATEX RISK : ARE YOU FREQUENTLY EXPOSED TO LATEX PRODUCTS IN YOUR OCCUPATION?NO CAFFEINE CAFFEINE USE?YES DAILY COFFEE ADVANCE DIRECTIVE ADVANCE DIRECTIVE DISCUSSED WITH PATIENT:YES NO ADVANCED DIRECTIVES, DOES NOT WANT HCP INFO OR ASSISTANCE WITH FORM 06/24/2019 RASTAFARIAN [id number] SABIANIST MARITAL STATUS: . ALCOHOL SCREENING DID YOU HAVE A DRINK CONTAINING ALCOHOL IN THE PAST YEAR?NO POINTS0 INTERPRETATIONNEGATIVE SEXUAL HX HAD SEX IN THE LAST 12 MONTHS (VAGINAL, ORAL, OR ANAL)?NO HAVE YOU EVER HAD AN STD?NO REVIEWED WITH PATIENT 05/17/18 1403 DHDREVIEWED WITH PATIENT 07/06/18 0905 JSREVIEWED WITH PT 01/21/19 0909 BVREVIEWED WITH PATIENT 06/24/2019 LAS. HOSPITALIZATION/MAJOR DIAGNOSTIC PROCEDURE SURGERIES HEART PROBLEMS / STROKE / PULMONARY EMBOLISM [facility] 03/07/19-03/10/19 REVIEW OF SYSTEMS REVIEWED BY: PROVIDER: FARNAZ BENZ . CONSTITUTIONAL: ANY CHANGE IN YOUR MEDICAL CONDITION? NO . CHILLS NO . FEVER NO . INFECTION: DO YOU HAVE NEW INFECTIONS? NO . DO YOU HAVE HISTORY OF MRSA? NO . MUSCULOSKELETAL: ANY NEW PATTERNS OF PAIN OR NUMBNESS? NO . GASTROENTEROLOGY: ANY NEW CHANGE IN BOWEL CONTROL? NO . GENITOURINARY: ANY NEW CHANGE IN BLADDER CONTROL? NO . IS THERE A CHANCE YOU COULD BE ? NO . HEMATOLOGY/LYMPH: DO YOU TAKE ANY BLOOD THINNERS? (FOR EXAMPLE- COUMADIN, PLAVIX, AGGRENOX, PLATEL, PRADAXA, OR XARELTO) YES PLAVIX AND XARELTO . WHEN WAS YOUR LAST DOSE? DATE: TIME: . NEUROLOGY: HAVE YOU FALLEN IN THE PAST 12 MONTHS? YES FELL DURING SUMMER, ALREADY REPORTED PER PATIENT . ANY NEW EXTREMITY NUMBNESS OR WEAKNESS? NO . CARDIOLOGY: DO YOU HAVE A PACEMAKER OR DEFIBRILLATOR? NO . RESPIRATORY: HAVE YOU BEEN SICK IN THE PAST WEEK? YES PT REPORTS RECENT COUGH, THINKS SHE MAY BE COMING DOWN WITH BRONCHITIS, DENIES FEVER OR OTHER SYMPTOMS. TO SEE HER PRIMARY. . FEVER NO . FLU LIKE SYMPTOMS? NO . COUGH NO . INTEGUMENTARY: DO YOU HAVE ANY RASHES OR OPEN SORES? NO . ALLERGIC/IMMUNO: ARE YOU ALLERGIC TO IV DYE? NO . ANY NEW ALLERGIES? NO . PSYCHIATRIC: DO YOU HAVE THOUGHTS OF HURTING YOURSELF OR SOMEONE ELSE? NO . ARE YOU ABUSED, NEGLECTED, OR IN AN UNSAFE ENVIRONMENT? NO . ENDOCRINOLOGY: ARE YOU DIABETIC? YES DIET CONTROLLED . OTHER: DO YOU NEED ANY PRESCRIPTIONS? NO . IF YES, PLEASE LIST: ____ . ANY NEW PROBLEMS WITH YOUR MEDICATIONS? NO . WHEN DID YOU LAST EAT? ____ . WHEN DID YOU LAST DRINK? ____ . WHAT DID YOU LAST DRINK? ____ . NAME OF PERSON DRIVING YOU HOME? ____ . DO YOU HAVE ANY OTHER QUESTIONS OR CONCERNS NO . VITAL SIGNS WT 141.8 LBS, HT 63", BMI 25.12 INDEX, BP 153/86 MM HG, HR 62 /MIN, RR 16 /MIN, TEMP 96.7 F, OXYGEN SAT % 95%, SAFE IN ENV? (Y/N) YES, NA INITIALS GA 08:49, REVIEWED BY: BRYSON. EXAMINATION GENERAL EXAMINATION: GENERALAWAKE,ALERT ,PLEAASANT . PSYCHAFFECT NORMAL . LUNGS:LUNG CYR ARE CLEAR TO AUSCULTATION BILATERALLY. GOOD MOVEMENT OF AIR . HEART:S1, S2 IN A REGULAR RATE AND RHYTHM. NO SIGNIFICANT MURMURS, RUBS OR GALLOPS NOTED . 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 WITHOUT [id number] NOTES: ISTOP REGISTRY REVIEWED AND DEMONSTRATES COMPLLIANCE. BRINGS IN MEDICATIONS WHICH IS APPROPRIATE FOR WHAT WAS DISPENSED. RECENT URINE TOXICOLOGY REVIEWED. NO UNAUTHORIZED MEDICATIONS. NO ILLICIT SUBSTANCES AND PRESCRIBED MEDICATIONS WERE PRESENT. , RISKS OF NARCOTIC/OPIOD MEDICATIONS INCLUDES BUT IS NOT LIMITED TO RISK OF DEPENDANCE/DEVELOPMENT OF ADDICTION, MOOD DISTURBANCE AND DEPRESSION, OSTEOPOROSIS, HORMONAL AND LABIDAL CHANGES, RESPIRATORY DEPRESSION AND . PATIENT IS ADVISED NOT TO DRIVE OR DRINK ALCOHOL WHILE ON THESE MEDICATIONS. [facility] REASON:CHRONIC LOW BACK PAIN/GENERALIZED BACK PAIN/MULTIPLE CARDIAC COMORBIDITIES/REFRACTORY TO INTERVENTIONAL RX AND PT PROCEDURE CODES FA211 ESTABILISHED PATIENT [facility] FACILITY CHARGE DISPOSITION & COMMUNICATION FOLLOW UP 6 WEEKS (REASON: MRI REVIEW) ELECTRONICALLY SIGNED BY DEMAR LLAMAS ON 07/11/2019 AT 11:28 AM EST DISCLAIMER : THIS IS A VISIT SUMMARY EXTRACTED FROM THE [employer] CHART. IT IS NOT A COPY OF THE [employer] PROGRESS NOTE. AUGUSTUS
== END ==
LOC: M PAIN 08:45
PROVIDERS: ATTEND Nurse Practitioner Family
DX: M48.061 Spinal stenosis, lumbar region without neurogenic claudication (principal)

== ENCOUNTER → 2019-07-13 | Outpatient (CLI) | payer MEDICARE, MEDICAID ==
--- NOTE | 2019-07-14 02:09 | ECWPNPC ---
PATIENT NAME: WALTER WISE : 1965 GENDER: FEMALE VISIT DATE: 07/13/2019 DISCHARGE DATE: 07/13/19 1108 VISIT LOCKED DATE TIME: PHYSICIAN: FARNAZ BLEVINS RESOURCE: FARNAZ BLEVINS REASON FOR APPOINTMENT 1. REVIEW MRI HISTORY OF PRESENT ILLNESS HISTORY OF PRESENT ILLNESS: HERE TODAY TO REVIEW MRI OF THE LUMBAR SPINE DONE ON 07/06/2019. THIS IS SHOWING MILD MULTILEVEL DEGENERATIVE DISC DISEASE WITH NO LIMITING, CANAL OR FORAMINAL STENOSIS OR DISC HERNIATION. CONTINUES TO SUFFER FROM SIGNIFICANT LOW BACK PAIN THAT IS DISRUPTING HER QUALITY OF LIFE. PAIN IS DESCRIBED CONTINUOUS, STABBING AND ACHING. REPORTS NIGHTTIME AWAKENING DUE TO PAIN. RATING PAIN LEVEL RANGE RANGING FROM 4-8/10 VAS. ON CHRONIC PLAVIX IN XARELTO THERAPY WITH HISTORY OF CARDIAC WELL PULMONARY EMBOLI. STATES THAT SHE IS NOT ABLE TO BE OFF OF XARELTO OR PLAVIX FOR INTERVENTIONAL TRIALS. HAS APPOINTMENT WITH DR. MUNGUIA TO DISCUSS SURGICAL OPTIONS IN THE NEAR FUTURE. SHE IS AWARE THAT SHE PROBABLY IS NOT A SURGICAL CANDIDATE, BUT AT LEAST HE WOULD LOOK AT THE IMAGING AND TELL HER WHAT IS AVAILABLE. WE DID DISCUSS TALKING WITH ,WEB CONTENT DEVELOPER, AGAIN ABOUT THE ABILITY TO BE OFF PLAVIX AND COUMADIN FOR INTERVENTIONAL TRIALS HERE. ADVISED HER, EVEN WITH HIS CONSENT, BEING OFF OF HER BLOOD THINNERS WOULD PUT HER AT INCREASED RISK FOR PULMONARY EMBOLISM, HEART ATTACK OR STROKE. THIS WILL TAKE A DISCUSSION WITH . WE ARE OFFERING NEW PROCEDURES HERE THAT COULD BE HELPFUL. PAIN THE PATIENT DESCRIBES THE PAIN... FALL RISK SCREENING: SCREENING :NO FALLS REPORTED IN THE LAST YEAR CURRENT MEDICATIONS TAKING FLONASE ALLERGY RELIEF 50 MCG/ACT SUSPENSION 1 SPRAY IN EACH NOSTRIL NASALLY ONCE A DAY NEEDED TAKING METOPROLOL SUCCINATE ER 100 MG TABLET EXTENDED RELEASE 24 HOUR 1 TABLET ORALLY ONCE DAILY TAKING XARELTO 20 MG TABLET 1 TABLET ORALLY ONCE A DAY TAKING ZOFRAN ODT 8 MG TABLET DISPERSIBLE 1 TAB(S) ORALLY THREE TIMES DAILY NEEDED TAKING PROAIR HFA 108 (90 BASE) MCG/ACT AEROSOL SOLUTION 2 PUFFS NEEDED INHALATION EVERY 6 HRS TAKING LEVOTHYROXINE SODIUM 100 MCG TABLET 1 TABLET ON AN EMPTY STOMACH IN THE MORNING ORALLY DAILY TAKING AMLODIPINE BESYLATE 2.5 MG TABLET 1 TABLET ORALLY ONCE A DAY, NOTES: SLESKA TAKING REPATHA 140 MG/ML SOLUTION PREFILLED SYRINGE 1 ML SUBCUTANEOUS , NOTES: SLESKA TAKES EVERY 2 WEEKS TAKING ROSUVASTATIN CALCIUM 10 MG TABLET 1 TABLET ORALLY ONCE A DAY TAKING VITAMIN B12 1000 MCG TABLET EXTENDED RELEASE 2 TABLET ORALLY ONCE A DAY TAKING OMEPRAZOLE 20 MG CAPSULE DELAYED RELEASE 1 CAPSULE ORALLY ONCE A DAY TAKING PLAVIX 75 MG TABLET 1 TABLET ORALLY ONCE A DAY TAKING OXYCODONE HCL 15 MG TABLET 1 TABLET NEEDED ORALLY EVERY 4 -6 HRS PRN PAIN MDD=4 TAKING XANAX XR 1 MG TABLET EXTENDED RELEASE 24 HOUR 1 TABLET ORALLY BEFORE BEDTIME NOT-TAKING LORAZEPAM 0.5 MG TABLET 1 TABLET NEEDED ORALLY TID (MDD;3) NOT-TAKING FLUTICASONE PROPIONATE 50 MCG/ACT SUSPENSION 1 SPRAY IN EACH NOSTRIL NASALLY ONCE A DAY, NOTES: DUPLICATE NOT-TAKING SEROQUEL 25 MG TABLET 1 TABLET AT BEDTIME ORALLY ONCE A DAY MEDICATION LIST REVIEWED AND RECONCILED WITH THE PATIENT PAST MEDICAL HISTORY GA/CABG/UNSTABLE ANGINA/MULTIPLE STENT PLACEMENTS RCA 2000 2001 2003 2004 2009 =- [facility] HISTORY OF CVA 2002 PULMONARY EMBOLISM 2006/HISTORY OF RECURRENT DVT OSTEOARTHRITIS ELEVATED FACTOR VIII HISTORY OF RENAL STONE HYPOTHYROIDISM/STATUS POST THYROIDECTOMY FOR THYROID CANCER CONSTIPATION ABNORMAL PAP SMEAR - YESSI I WITH + HPV - FOLLOWS AT [facility] UNSPECIFIED URINARY CALCULUS 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 DYSFUNCTION CHRONIC MIGRAINE WITHOUT AURA, WITH INTRACTABLE MIGRAINE, SO STATED, WITHOUT MENTION OF STATUS MIGRAINOSUS ESOPHAGEAL REFLUX DEPRESSIVE DISORDER, NOT ELSEWHERE CLASSIFIED VITAMIN D DEFICIENCY TOBACCO DEPENDENCE ALLERGIES FGCINCE-[id number] PERTUSSIS: ANAPHYLAXIS - ALLERGY ALL METALS: SEVERE SWELLING - ALLERGY NITROGLYCERIN: HYPOTENSION - SIDE EFFECTS IBUPROFEN: STOMACH PAIN - SIDE EFFECTS SURGICAL HISTORY 1982 1985 TRIPLE BYPASS 2005 STERNOTOMY WIRE REMOVAL 2005 REMOVAL OF ABDOMINAL ADHESIONS 2008 THYROIDECTOMY 2008 LAPAROSCOPIC CHOLECYSTECTOMY 2009 FAUSTINA FUNDOPLICATION 2009 SACRAL TUMOR REMOVED 08/05 COLPOSCOPY [facility], THEN [place] - DR CENTENO 03/05 STENT IN HEART IN [place] 01/2015 7 STENTS AND A BALOON AT [facility] 02/2015 3 CARDIAC STENTS 11/01/2015 EXPLORATORY ON R HIP 12/2016 RIGHT TOTAL HIP REPLACEMENT 03/2017 LEFT TOTAL HIP REPLACEMENT 12/07/17 CARDIAC CATH 03/2018 CYSTOSCOPY 08/2018 HEART CATHORIZATION 03/07/2019 FAMILY HISTORY FATHER: 34 YRS, DIAGNOSED WITH UNSPECIFIED HEART DISEASE MOTHER: 65 YRS, LUNG CANCER, UNSPECIFIED HEART DISEASE, OTHER MALIGNANT NEOPLASM OF UNSPECIFIED SITE MATERNAL GRAND MOTHER: BREAST CANCER THEN METS, OTHER MALIGNANT NEOPLASM OF UNSPECIFIED SITE BROTHER: ALIVE, DIAGNOSED WITH UNSPECIFIED HEART DISEASE 2 SON(S) . BOTH CHILDREN ARE \\N\\NYOUNGEST (BOY)- 2 1\\/2 MELANOMA\\NOLDEST (BOY)- 18 LIVER CANCER. SOCIAL HISTORY GENERAL: TOBACCO USE ARE YOU A:CURRENT SMOKER GOING TO BE HYPNOTIZED TO AID IN QUITTING SMOKING - HAPPENING TONIGHT 07/13/2019 ARE YOU INTERESTED IN QUITTING?READY TO QUIT COUNSELED THE PATIENT ON TOBACCO USE, CESSATION [id number]/22/2020 HOW MANY CIGARETTES A DAY DO YOU SMOKE?5 OR LESS PATIENT COUNSELED ON THE DANGERS OF TOBACCO USE AND URGED TO QUIT:07/13/2019 HIV / HEP-C SCREENING HIV TEST OFFERED TO PATIENT:YES DATE OFFERED:04/07/2019 TEST ACCEPTED:NO HEP-C TEST OFFERED TO PATIENT:YES DATE OFFERED:04/07/2019 REASON:PATIENT DECLINED TEST ACCEPTED:NO REASON:PATIENT DECLINED BROCHURE PROVIDED TO PATIENTNO OTHERS AT HOME: SISTER. EDUCATION LEVEL OF EDUCATION:FINISHED HIGH SCHOOL DIET: REGULAR. LANGUAGE LANGUAGES SPOKEN:KHMER BMI CARE GOAL FOLLOW-UP ABOVE NORMAL BMI FOLLOW-UPDIETARY MANAGEMENT EDUCATION, GUIDANCE, AND COUNSELING RECREATIONAL DRUG USE DRUG USE?NO EXERCISE: NO REGULAR EXERCISE,. LEARNING BARRIERS / SPECIAL NEEDS BARRIERS TO LEARNING?NO HEARING IMPAIRED?NO VISION IMPAIRED?YES COGNITIVELY IMPAIRED?NO :CORRECTIVE LENSES GLASSES READINESS TO LEARN?YES LEARNING PREFERENCES?NO LEARNING CAPABILITIES PRESENT?YES EMOTIONAL BARRIERS?NO SPECIAL DEVICES?NO HIM SPECIALISTS NEEDED?NO LUNG CANCER SCREENING SMOKING STATUS:CURRENT SMOKER PAIN CLINIC PFS, CLERGY, PUBLIC HEALTH REFERRALS WAS THE PROVIDER NOTIFIED OF ANY PERTINENT INFO?YES HAS THE PATIENT BEEN EDUCATED REGARDING HIS/HER PLAN OF CARE?YES HAS THE PATIENT BEEN EDUCATED REGARDING PAIN, THE RISK FOR PAIN, THE IMPORTANCE OF EFFECTIVE PAIN MANAGEMENT, AND THE PAIN ASSESSMENT PROCESS?YES LATEX QUESTIONNAIRE LATEX ALLERGY : HAVE YOU EVER DEVELOPED ANY TYPE OF REACTION AFTER HANDLING LATEX PRODUCTS SUCH RUBBER GLOVES, CONDOMS, DIAPHRAGMS, BALLOONS, SOCKS, OR UNDERWEAR?NO LATEX ALLERGY : HAVE YOU EVER DEVELOPED ANY TYPE OF REACTION DURING OR AFTER DENTAL APPOINTMENT, VAGINAL/RECTAL EXAMINATION, SURGICAL PROCEDURE, OR ANY OTHER EXPOSURE?NO LATEX RISK : HAVE YOU EVER HAD ANY DIFFICULTY BREATHING OR HIVES AFTER EATING OR HANDLING ANY FRUITS, OR VEGETABLES; SUCH KIWI, BANANAS, STONE FRUITS, OR CHESTNUTSNO LATEX RISK : DO YOU HAVE A PREVIOUS PERSONAL HISTORY OF MORE THAN NINE SURGERIES, SPINA BIFIDA, OR REPEATED CATHERIZATIONS? NO LATEX RISK : ARE YOU FREQUENTLY EXPOSED TO LATEX PRODUCTS IN YOUR OCCUPATION?NO DATE ASKED : 10/22/2018 CAFFEINE CAFFEINE USE?YES DAILY COFFEE ADVANCE DIRECTIVE ADVANCE DIRECTIVE DISCUSSED WITH PATIENT:YES 07/13/2019 NO ADVANCED DIRECTIVES, DOES NOT WANT HCP INFO OR ASSISTANCE WITH FORM. JS SHINTO [id number] GNOSTICISM MARITAL STATUS: . ALCOHOL SCREENING DID YOU HAVE A DRINK CONTAINING ALCOHOL IN THE PAST YEAR?NO POINTS0 INTERPRETATIONNEGATIVE SEXUAL HX HAD SEX IN THE LAST 12 MONTHS (VAGINAL, ORAL, OR ANAL)?NO HAVE YOU EVER HAD AN STD?NO REVIEWED WITH PATIENT 05/17/18 1403 DHDREVIEWED WITH PATIENT 07/06/18 0905 JSREVIEWED WITH PT 01/21/19 0909 BVREVIEWED WITH PATIENT 06/24/2019 LASREVIEWED WITH PATIENT 07/13/2019 1049 JS. HOSPITALIZATION/MAJOR DIAGNOSTIC PROCEDURE SURGERIES HEART PROBLEMS / STROKE / PULMONARY EMBOLISM [facility] 03/07/19-03/10/19 REVIEW OF SYSTEMS REVIEWED BY: PROVIDER: FARNAZ BENZ . CONSTITUTIONAL: ANY CHANGE IN YOUR MEDICAL CONDITION? NO . CHILLS NO . FEVER NO . INFECTION: DO YOU HAVE NEW INFECTIONS? NO . DO YOU HAVE HISTORY OF MRSA? NO . MUSCULOSKELETAL: ANY NEW PATTERNS OF PAIN OR NUMBNESS? NO . GASTROENTEROLOGY: ANY NEW CHANGE IN BOWEL CONTROL? NO . GENITOURINARY: ANY NEW CHANGE IN BLADDER CONTROL? NO . IS THERE A CHANCE YOU COULD BE ? NO . HEMATOLOGY/LYMPH: DO YOU TAKE ANY BLOOD THINNERS? (FOR EXAMPLE- COUMADIN, PLAVIX, AGGRENOX, PLATEL, PRADAXA, OR XARELTO) YES, PLAVIX AND XARELTO . WHEN WAS YOUR LAST DOSE? DATE: 07/12/2019TIME: 1700 . NEUROLOGY: HAVE YOU FALLEN IN THE PAST 12 MONTHS? YES, STATES PRIOR TO LAST VISIT, DISCUSSED AT PREVIOUS VISIT . ANY NEW EXTREMITY NUMBNESS OR WEAKNESS? NO . CARDIOLOGY: DO YOU HAVE A PACEMAKER OR DEFIBRILLATOR? NO . RESPIRATORY: HAVE YOU BEEN SICK IN THE PAST WEEK? NO . FEVER NO . FLU LIKE SYMPTOMS? NO . COUGH NO . INTEGUMENTARY: DO YOU HAVE ANY RASHES OR OPEN SORES? NO . ALLERGIC/IMMUNO: ARE YOU ALLERGIC TO IV DYE? NO . ANY NEW ALLERGIES? NO . PSYCHIATRIC: DO YOU HAVE THOUGHTS OF HURTING YOURSELF OR SOMEONE ELSE? NO . ARE YOU ABUSED, NEGLECTED, OR IN AN UNSAFE ENVIRONMENT? NO . ENDOCRINOLOGY: ARE YOU DIABETIC? YES . OTHER: DO YOU NEED ANY PRESCRIPTIONS? NO . IF YES, PLEASE LIST: ____ . ANY NEW PROBLEMS WITH YOUR MEDICATIONS? NO . WHEN DID YOU LAST EAT? ____ . WHEN DID YOU LAST DRINK? ____ . WHAT DID YOU LAST DRINK? ____ . NAME OF PERSON DRIVING YOU HOME? ____ . DO YOU HAVE ANY OTHER QUESTIONS OR CONCERNS NO . VITAL SIGNS WT 137 LBS, HT 63", BMI 24.27 INDEX, BP 119/65 MM HG, HR 63 /MIN, RR 16 /MIN, TEMP 97.6 F, OXYGEN SAT % 99%, SAFE IN ENV? (Y/N) YES, NA INITIALS AW 1046, REVIEWED BY: ALISA. EXAMINATION GENERAL EXAMINATION: GENERAL AWAKE,ALERT, PLEASANT. PSYCH AFFECT NORMAL . LUNGS: LUNG CYR ARE CLEAR TO AUSCULTATION BILATERALLY. GOOD MOVEMENT OF AIR . HEART: S1, S2 IN A REGULAR RATE AND RHYTHM. NO SIGNIFICANT MURMURS, RUBS OR GALLOPS NOTED . DIAGNOSTIC TESTS REVIEWEDMRI OF THE LS-SPINE 07/06/2019 . ASSESSMENTS DDD (DEGENERATIVE DISC DISEASE), LUMBOSACRAL - M51.37 (PRIMARY) TREATMENT DDD (DEGENERATIVE DISC DISEASE), LUMBOSACRAL NOTES: PATIENT WOULD LIKE TO KEEP APPOINTMENT WITH DR. MUNGUIA TO DISCUSS HIS THOUGHTS REGARDING HER LOW BACK PAIN AND RECENT MRI IMAGING. SHE WILL TALK WITH DR. HENRY ABOUT STOPPING ANTICOAGULANTS IN CONSIDERATION FOR ANY PROCEDURES THAT WE MAY BE ABLE TO OFFER HERE. PROCEDURE CODES FA211 ESTABILISHED PATIENT [facility] FACILITY CHARGE DISPOSITION & COMMUNICATION FOLLOW UP 3 MONTHS (REASON: MED MGMNT) ELECTRONICALLY SIGNED BY DEMAR LLAMAS ON 07/13/2019 AT 11:47 AM EST DISCLAIMER : THIS IS A VISIT SUMMARY EXTRACTED FROM THE [employer] CHART. IT IS NOT A COPY OF THE [employer] PROGRESS NOTE. AUGUSTUS
== END ==
LOC: M PAIN 10:30
PROVIDERS: ATTEND Nurse Practitioner Family
DX: M51.37 Other intervertebral disc degeneration, lumbosacral region (principal); I25.2 Old myocardial infarction; Z86.711 Personal history of pulmonary embolism; E03.9 Hypothyroidism, unspecified; G43.909 Migraine, unspecified, not intractable, without status migrainosus; K21.9 Gastro-esophageal reflux disease without esophagitis; E11.9 Type 2 diabetes mellitus without complications; Z86.59 Personal history of other mental and behavioral disorders; Z96.643 Presence of artificial hip joint, bilateral; F17.210 Nicotine dependence, cigarettes, uncomplicated; Z88.6 Allergy status to analgesic agent; Z88.7 Allergy status to serum and vaccine; Z88.8 Allergy status to other drugs, medicaments and biological substances; Z79.01 Long term (current) use of anticoagulants; Z79.899 Other long term (current) drug therapy

== ENCOUNTER 2019-07-18 12:20 | Emergency (ER) | payer MEDICARE, MEDICAID ==
[~2019-07-18] VITALS: Ht 154.9 cm; Wt 61.4 kg
--- NOTE | 2019-07-18 13:37 | REP ---
Left hip two views: There is a total hip arthroplasty. There is no fracture. There is no dislocation. There are no calcifications or foreign bodies. Impression: No fracture or dislocation. Total hip arthroplasty. No loosening. Electronically Signed by Dimitry Reyes MD 07/18/2019 01:28 P
[2019-07-18] MEDS ORDERED: PERCOCET 5MG/325MG TAB PO ONE (13:45)
[2019-07-18] MEDS ORDERED: LIDOCAINE 5% (LIDODERM) PATCH TD ONE (14:15)
[2019-07-18] MEDS ORDERED: CYCLOBENZAPRINE 5MG TABLET PO ONE (14:15)
[2019-07-18 15:08] VITALS: BP 135/89
[2019-07-18] MEDS ORDERED: **NOTE PATIENT COMMENT** MISC XX SCH (21:00)
== END 2019-07-18 15:13 | disposition home or self-care (01) ==
LOC: M ED 12:20
DX: M79.605 Pain in left leg (principal); I10 Essential (primary) hypertension; E11.9 Type 2 diabetes mellitus without complications; Z79.899 Other long term (current) drug therapy; Z79.01 Long term (current) use of anticoagulants; Z88.7 Allergy status to serum and vaccine; Z88.8 Allergy status to other drugs, medicaments and biological substances; Z91.048 Other nonmedicinal substance allergy status; Z87.891 Personal history of nicotine dependence

== ENCOUNTER → 2019-08-10 | Outpatient (REF) | payer MEDICARE, MEDICAID ==
[2019-08-10 12:08] LABS: FOLATE 5.9 NG/ML
== END ==
LOC: M SFHCLERA 09:35
PROVIDERS: ATTEND Family Medicine
DX: E53.8 Deficiency of other specified B group vitamins (principal)

== ENCOUNTER → 2019-09-01 | Outpatient (REF) | payer MEDICARE, MEDICAID | LOC: M SFHCLERA 14:07 | PROVIDERS: ATTEND Family Medicine | DX: E03.9 Hypothyroidism, unspecified (principal); E53.8 Deficiency of other specified B group vitamins | CPT/HCPCS: 84443; 96372; G0463; J3420 ==

== ENCOUNTER → 2019-10-12 | Outpatient (CLI) | payer MEDICARE, MEDICAID ==
[~2019-10-12] MED LIST changes: +CYCL-707 PO; -CYCL10TA PO; +OXYC-1 PO; -OXYC15TA76 PO
--- NOTE | 2019-10-14 03:41 | ECWPNPC ---
PATIENT NAME: WALTER WISE : 1965 GENDER: FEMALE VISIT DATE: 10/12/2019 DISCHARGE DATE: 10/12/19 1037 VISIT LOCKED DATE TIME: PHYSICIAN: FARNAZ BLEVINS RESOURCE: FARNAZ BLEVINS REASON FOR APPOINTMENT 1. 3 MONTH [phone] HISTORY OF PRESENT ILLNESS HISTORY OF PRESENT ILLNESS: PATIENT HAS AGREED TO TELEMED VISIT TODAY VIA ZOOM. THIS IS A ROUTINE 3 MONTH FOLLOW-UP AND MEDICINE MANAGEMENT FOR CHRONIC PAIN. SHE SPOKE TO DR. MUNGUIA REGARDING MRI AND HE TOLD HER SHE WAS NOT A SURGICAL CANDIDATE, MAINLY DUE TO HER MULTIPLE MEDICAL CONDITIONS. WE WERE CONSIDERING DOING PROCEDURES. SHE ASKED DR HENRY/PRINTING MACHINIST IF SHE COULD STOP ANTICOAGULANT AND HE FEELS RISKS OUTWEIGH BENEFIT. PATIENT TOLD HIM THAT PROCEDURES DONE HERE IN THE PAST DID NOT LAST LONG. BRIEFLY DISCUSSED POSSIBILITY OF DORSAL COLUMN STIM TRIAL, BUT AGAIN SHE WOULD HAVE TO WEIGH THE RISKS AND THE BENEFITS WITH DR. HENRY. RATING PAIN LEVEL VII/X VAS. FINDS CURRENT CHRONIC PAIN MEDICINE EFFECTIVE AT REDUCING PAIN AND KEEPING HER FUNCTIONAL. DENIES ADVERSE EFFECTS WITH MEDICATIONS. PAIN THE PATIENT DESCRIBES THE PAIN... FALL RISK SCREENING: SCREENING :NO FALLS REPORTED IN THE LAST YEAR CURRENT MEDICATIONS TAKING FLONASE ALLERGY RELIEF 50 MCG/ACT SUSPENSION 1 SPRAY IN EACH NOSTRIL NASALLY ONCE A DAY NEEDED TAKING METOPROLOL SUCCINATE ER 100 MG TABLET EXTENDED RELEASE 24 HOUR 1 TABLET ORALLY ONCE DAILY TAKING XARELTO 20 MG TABLET 1 TABLET ORALLY ONCE A DAY TAKING ZOFRAN ODT 8 MG TABLET DISPERSIBLE 1 TAB(S) ORALLY THREE TIMES DAILY NEEDED TAKING PROAIR HFA 108 (90 BASE) MCG/ACT AEROSOL SOLUTION 2 PUFFS NEEDED INHALATION EVERY 6 HRS TAKING LEVOTHYROXINE SODIUM 100 MCG TABLET 1 TABLET ON AN EMPTY STOMACH IN THE MORNING ORALLY DAILY TAKING AMLODIPINE BESYLATE 2.5 MG TABLET 1 TABLET ORALLY ONCE A DAY, NOTES: SLESKA TAKING REPATHA 140 MG/ML SOLUTION PREFILLED SYRINGE 1 ML SUBCUTANEOUS , NOTES: SLESKA TAKES EVERY 2 WEEKS TAKING ROSUVASTATIN CALCIUM 10 MG TABLET 1 TABLET ORALLY ONCE A DAY TAKING OMEPRAZOLE 20 MG CAPSULE DELAYED RELEASE 1 CAPSULE ORALLY ONCE A DAY TAKING PLAVIX 75 MG TABLET 1 TABLET ORALLY ONCE A DAY TAKING XANAX XR 1 MG TABLET EXTENDED RELEASE 24 HOUR 1 TABLET ORALLY BEFORE BEDTIME TAKING OXYCODONE HCL 15 MG TABLET 1 TABLET NEEDED ORALLY EVERY 4 -6 HRS PRN PAIN MDD=4 TAKING BD INSULIN SYRINGE 25G X 5/8" 1 ML MISCELLANEOUS DIRECTED _ DIRECTED TAKING SM ALCOHOL PREP 70 % PAD DIRECTED EXTERNALLY DIRECTED TAKING CYANOCOBALAMIN 1000 MCG/ML SOLUTION 1 ML INJECTION WEEKLY FOR 4 WEEKS NOT-TAKING VITAMIN B12 1000 MCG TABLET EXTENDED RELEASE 2 TABLET ORALLY ONCE A DAY NOT-TAKING LORAZEPAM 0.5 MG TABLET 1 TABLET NEEDED ORALLY TID (MDD;3) NOT-TAKING FLUTICASONE PROPIONATE 50 MCG/ACT SUSPENSION 1 SPRAY IN EACH NOSTRIL NASALLY ONCE A DAY, NOTES: DUPLICATE NOT-TAKING SEROQUEL 25 MG TABLET 1 TABLET AT BEDTIME ORALLY ONCE A DAY MEDICATION LIST REVIEWED AND RECONCILED WITH THE PATIENT PAST MEDICAL HISTORY HI/CABG/UNSTABLE ANGINA/MULTIPLE STENT PLACEMENTS RCA 2000 2001 2003 2004 2009 =- [facility] HISTORY OF CVA 2002 PULMONARY EMBOLISM 2006/HISTORY OF RECURRENT DVT OSTEOARTHRITIS ELEVATED FACTOR VIII HISTORY OF RENAL STONE HYPOTHYROIDISM/STATUS POST THYROIDECTOMY FOR THYROID CANCER CONSTIPATION ABNORMAL PAP SMEAR - YESSI I WITH + HPV - FOLLOWS AT WT UNSPECIFIED URINARY CALCULUS 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 DYSFUNCTION CHRONIC MIGRAINE WITHOUT AURA, WITH INTRACTABLE MIGRAINE, SO STATED, WITHOUT MENTION OF STATUS MIGRAINOSUS ESOPHAGEAL REFLUX DEPRESSIVE DISORDER, NOT ELSEWHERE CLASSIFIED VITAMIN D DEFICIENCY TOBACCO DEPENDENCE ALLERGIES [id number] PERTUSSIS: ANAPHYLAXIS - ALLERGY ALL METALS: SEVERE SWELLING - ALLERGY NITROGLYCERIN: HYPOTENSION - SIDE EFFECTS IBUPROFEN: STOMACH PAIN - SIDE EFFECTS SURGICAL HISTORY 1982 1985 TRIPLE BYPASS 2004 STERNOTOMY WIRE REMOVAL 2005 REMOVAL OF ABDOMINAL ADHESIONS 2007 THYROIDECTOMY 2008 LAPAROSCOPIC CHOLECYSTECTOMY 2009 FAUSTINA FUNDOPLICATION 2009 SACRAL TUMOR REMOVED 08/05 COLPOSCOPY WTW, THEN ELIDA - DR CENTENO 03/05 STENT IN HEART IN [place] 01/2015 7 STENTS AND A BALOON AT [facility] 02/2015 3 CARDIAC STENTS 11/01/2015 EXPLORATORY ON R HIP 12/2016 RIGHT TOTAL HIP REPLACEMENT 03/2017 LEFT TOTAL HIP REPLACEMENT 12/07/17 CARDIAC CATH 03/2018 CYSTOSCOPY 08/2018 HEART CATHORIZATION 03/07/2019 FAMILY HISTORY FATHER: 34 YRS, DIAGNOSED WITH UNSPECIFIED HEART DISEASE MOTHER: 65 YRS, LUNG CANCER, UNSPECIFIED HEART DISEASE, OTHER MALIGNANT NEOPLASM OF UNSPECIFIED SITE MATERNAL GRAND MOTHER: BREAST CANCER THEN METS, OTHER MALIGNANT NEOPLASM OF UNSPECIFIED SITE BROTHER: ALIVE, DIAGNOSED WITH UNSPECIFIED HEART DISEASE 2 SON(S) . BOTH CHILDREN ARE \\N\\NYOUNGEST (BOY)- 2 1\\/2 MELANOMA\\NOLDEST (BOY)- 18 LIVER CANCER. SOCIAL HISTORY GENERAL: TOBACCO USE ARE YOU A:CURRENT SMOKER ARE YOU INTERESTED IN QUITTING?THINKING ABOUT QUITTING WORKING ON CUTTING BACK. COUNSELED THE PATIENT ON SMOKING CESSATION, EDUCATION [id number]/22/2020 HOW MANY CIGARETTES A DAY DO YOU SMOKE?5 OR LESS PATIENT COUNSELED ON THE DANGERS OF TOBACCO USE AND URGED TO QUIT:10/12/2019 LATEX QUESTIONNAIRE LATEX ALLERGY : HAVE YOU EVER DEVELOPED ANY TYPE OF REACTION AFTER HANDLING LATEX PRODUCTS SUCH RUBBER GLOVES, CONDOMS, DIAPHRAGMS, BALLOONS, SOCKS, OR UNDERWEAR?NO LATEX ALLERGY : HAVE YOU EVER DEVELOPED ANY TYPE OF REACTION DURING OR AFTER DENTAL APPOINTMENT, VAGINAL/RECTAL EXAMINATION, SURGICAL PROCEDURE, OR ANY OTHER EXPOSURE?NO LATEX RISK : HAVE YOU EVER HAD ANY DIFFICULTY BREATHING OR HIVES AFTER EATING OR HANDLING ANY FRUITS, OR VEGETABLES; SUCH KIWI, BANANAS, STONE FRUITS, OR CHESTNUTSNO LATEX RISK : DO YOU HAVE A PREVIOUS PERSONAL HISTORY OF MORE THAN NINE SURGERIES, SPINA BIFIDA, OR REPEATED CATHERIZATIONS? NO LATEX RISK : ARE YOU FREQUENTLY EXPOSED TO LATEX PRODUCTS IN YOUR OCCUPATION?NO DATE ASKED : 10/12/2019 LUNG CANCER SCREENING SMOKING STATUS:CURRENT SMOKER BMI CARE GOAL FOLLOW-UP ABOVE NORMAL BMI FOLLOW-UPDIETARY MANAGEMENT EDUCATION, GUIDANCE, AND COUNSELING ALCOHOL SCREENING DID YOU HAVE A DRINK CONTAINING ALCOHOL IN THE PAST YEAR?NO POINTS0 INTERPRETATIONNEGATIVE RECREATIONAL DRUG USE DRUG USE?NO CAFFEINE CAFFEINE USE?YES DAILY COFFEE SEXUAL HX HAD SEX IN THE LAST 12 MONTHS (VAGINAL, ORAL, OR ANAL)?NO HAVE YOU EVER HAD AN STD?NO HIV / HEP-C SCREENING HIV TEST OFFERED TO PATIENT:YES DATE OFFERED:04/07/2019 TEST ACCEPTED:NO HEP-C TEST OFFERED TO PATIENT:YES DATE OFFERED:04/07/2019 REASON:PATIENT DECLINED TEST ACCEPTED:NO REASON:PATIENT DECLINED BROCHURE PROVIDED TO PATIENTNO EVANGELICAL [id number] ALEVISM LANGUAGE LANGUAGES SPOKEN:TONGAN EDUCATION LEVEL OF EDUCATION:FINISHED HIGH SCHOOL LEARNING BARRIERS / SPECIAL NEEDS BARRIERS TO LEARNING?NO HEARING IMPAIRED?NO VISION IMPAIRED?YES COGNITIVELY IMPAIRED?NO :CORRECTIVE LENSES GLASSES READINESS TO LEARN?YES LEARNING PREFERENCES?NO LEARNING CAPABILITIES PRESENT?YES EMOTIONAL BARRIERS?NO SPECIAL DEVICES?NO TEMPORARY OFFICE ASSISTANT NEEDED?NO DIET: REGULAR. EXERCISE: NO REGULAR EXERCISE,. MARITAL STATUS: . OTHERS AT HOME: SISTER. NEW PATIENT PAIN DIARY TODAY'S VISITNOTES 10/12/2019 PATIENT DESCRIBES PAIN :ACHING, HAVE IT ALL THE TIME, THROBBING FROM 0-10, WHAT LEVEL IS YOUR PAIN TODAY?3 PAIN CLINIC PFS, CLERGY, PUBLIC HEALTH REFERRALS WAS THE PROVIDER NOTIFIED OF ANY PERTINENT INFO?YES HAS THE PATIENT BEEN EDUCATED REGARDING HIS/HER PLAN OF CARE?YES HAS THE PATIENT BEEN EDUCATED REGARDING PAIN, THE RISK FOR PAIN, THE IMPORTANCE OF EFFECTIVE PAIN MANAGEMENT, AND THE PAIN ASSESSMENT PROCESS?YES ADVANCE DIRECTIVE ADVANCE DIRECTIVE DISCUSSED WITH PATIENT:YES 10/12/2019 NO ADVANCED DIRECTIVES, DOES NOT WANT HCP INFO OR ASSISTANCE WITH FORM. JS HOSPITALIZATION/MAJOR DIAGNOSTIC PROCEDURE SURGERIES HEART PROBLEMS / STROKE / PULMONARY EMBOLISM [facility] 03/07/19-03/10/19 REVIEW OF SYSTEMS REVIEWED BY: PROVIDER: FARNAZ BENZ . CONSTITUTIONAL: ANY CHANGE IN YOUR MEDICAL CONDITION? NO . CHILLS NO . FEVER NO . INFECTION: DO YOU HAVE NEW INFECTIONS? NO . DO YOU HAVE HISTORY OF MRSA? NO . MUSCULOSKELETAL: ANY NEW PATTERNS OF PAIN OR NUMBNESS? NO . GASTROENTEROLOGY: ANY NEW CHANGE IN BOWEL CONTROL? NO . GENITOURINARY: ANY NEW CHANGE IN BLADDER CONTROL? NO . IS THERE A CHANCE YOU COULD BE ? NO . HEMATOLOGY/LYMPH: DO YOU TAKE ANY BLOOD THINNERS? (FOR EXAMPLE- COUMADIN, PLAVIX, AGGRENOX, PLATEL, PRADAXA, OR XARELTO) YES, XARELTO & PLAVIX . WHEN WAS YOUR LAST DOSE? DATE: 10/11/2019TIME: 1700 . NEUROLOGY: HAVE YOU FALLEN IN THE PAST 12 MONTHS? NO . ANY NEW EXTREMITY NUMBNESS OR WEAKNESS? NO . CARDIOLOGY: DO YOU HAVE A PACEMAKER OR DEFIBRILLATOR? NO . RESPIRATORY: HAVE YOU BEEN SICK IN THE PAST WEEK? NO . FEVER NO . FLU LIKE SYMPTOMS? NO . COUGH NO . INTEGUMENTARY: DO YOU HAVE ANY RASHES OR OPEN SORES? NO . ALLERGIC/IMMUNO: ARE YOU ALLERGIC TO IV DYE? NO . ANY NEW ALLERGIES? NO . PSYCHIATRIC: DO YOU HAVE THOUGHTS OF HURTING YOURSELF OR SOMEONE ELSE? NO . ARE YOU ABUSED, NEGLECTED, OR IN AN UNSAFE ENVIRONMENT? NO . ENDOCRINOLOGY: ARE YOU DIABETIC? NO . OTHER: DO YOU NEED ANY PRESCRIPTIONS? YES . IF YES, PLEASE LIST: ____OXYCODONE DUE AT THE END OF THE MONTH . ANY NEW PROBLEMS WITH YOUR MEDICATIONS? NO . WHEN DID YOU LAST EAT? ____ . WHEN DID YOU LAST DRINK? ____ . WHAT DID YOU LAST DRINK? ____ . NAME OF PERSON DRIVING YOU HOME? ____ . DO YOU HAVE ANY OTHER QUESTIONS OR CONCERNS NO . EXAMINATION GENERAL EXAMINATION: GENERALNO ACUTE DISTRESS, WELL NOURISHED AND HYDRATED. PSYCHAPPROPRIATE MOOD AND AFFECT . FACE:UNREMARKABLE. 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 RECENT URINE TOXICOLOGY REVIEWED. NO UNAUTHORIZED MEDICATIONS. NO ILLICIT SUBSTANCES AND PRESCRIBED MEDICATIONS WERE PRESENT. TOTAL TIME SPENT DURING TELEMED CONFERENCE WAS APPROXIMATELY 15 MINUTES. OTHERS NOTES: NO VITALS OBTAINED DUE TO VIRTUAL VISIT. DISPOSITION & COMMUNICATION FOLLOW UP 2 MONTHS (REASON: MED MGMNT) ELECTRONICALLY SIGNED BY DEMAR LLAMAS ON 10/13/2019 AT 09:14 AM EDT DISCLAIMER : THIS IS A VISIT SUMMARY EXTRACTED FROM THE [employer] CHART. IT IS NOT A COPY OF THE [employer] PROGRESS NOTE. AUGUSTUS
== END ==
LOC: M PAIN 10:15
PROVIDERS: ATTEND Nurse Practitioner Family
DX: M48.061 Spinal stenosis, lumbar region without neurogenic claudication (principal); F17.210 Nicotine dependence, cigarettes, uncomplicated; Z79.891 Long term (current) use of opiate analgesic; Z79.899 Other long term (current) drug therapy; Z88.6 Allergy status to analgesic agent; Z88.8 Allergy status to other drugs, medicaments and biological substances; Z91.048 Other nonmedicinal substance allergy status

== ENCOUNTER → 2019-12-15 | Outpatient (CLI) | payer MEDICARE, MEDICAID ==
--- NOTE | 2019-12-16 02:38 | ECWPNPC ---
PATIENT NAME: WALTER WISE : 1965 GENDER: FEMALE VISIT DATE: 12/15/2019 DISCHARGE DATE: 12/15/19 1034 VISIT LOCKED DATE TIME: PHYSICIAN: FARNAZ BLEVINS RESOURCE: FARNAZ BLEVINS REASON FOR APPOINTMENT 1. MED MGMNT HISTORY OF PRESENT ILLNESS GENERAL: HUGO IS BEING SEEN FOR A FOLLOW-UP OF CHRONIC LOW BACK PAIN. OVERALL FINDS CURRENT MEDICATION REGIMEN HELPFUL AT REDUCING PAIN AND KEEPING HER FUNCTIONAL. SHE IS NOT A CANDIDATE FOR LUMBAR SURGERY OR INJECTIONS AT OUR CLINIC DUE TO MULTIPLE COMORBIDITIES. DENIES ADVERSE EFFECTS WITH HER MEDICATION. -. FALL RISK SCREENING: SCREENING :NO FALLS REPORTED IN THE LAST YEAR PAIN SCREENING: PATIENT HAS A COMPLAINT OF ACUTE OR CHRONIC PAIN :YES LOCATION OF PAIN:LOW BACK, LEG(S) INTENSITY OF PAIN (SCALE OF 1 TO 10):4 WHAT DOES YOUR PAIN FEEL LIKE:ACHING DURATION:CONSTANT PAIN IS INCREASED BY:ACTIVITIES PAIN IS DECREASED BY:USE OF PAIN MEDICATIONS, OTHERS REST NURSING NOTE: -. PAIN CENTER INTAKE QUESTIONS: DO YOU HAVE A HISTORY OF MRSA? :NO DO YOU TAKE A BLOOD THINNERS? :YES DO YOU HAVE ANY BLEEDING DISORDERS? :NO DOES HAVE A CLOTTING DISORDER - HIGH FACTOR VIII ANY NEW NUMBNESS OR WEAKNESS IN YOUR LEGS OR ARMS? :NO ANY PACEMAKER,DEFIBRILLATOR, OR DORSAL COLUMN STIMULATOR? :NO DO YOU HAVE ANY RASHES OR OPEN SORES? :NO ARE YOU ALLERGIC TO IV DYE? :NO ARE YOU DIABETIC? :YES ANY NEW PROBLEMS WITH YOUR MEDICATIONS? :NO HAVE YOU RECEIVED A VACCINE IN THE PAST 30 DAYS? :NO DO YOU PLAN TO RECEIVE A VACCINE IN THE NEXT 21 DAYS? :NO DO YOU NEED ANY PRESCRIPTION? :YES OXYCODONE DO YOU TAKE ANY IMMUNOSUPPRESSIVE MEDICATIONS? :NO IS THERE A CHANCE YOU COULD BE ? :NO ARE YOU BREAST FEEDING? :NO CURRENT MEDICATIONS TAKING FLONASE ALLERGY RELIEF 50 MCG/ACT SUSPENSION 1 SPRAY IN EACH NOSTRIL NASALLY ONCE A DAY NEEDED TAKING METOPROLOL SUCCINATE ER 100 MG TABLET EXTENDED RELEASE 24 HOUR 1 TABLET ORALLY ONCE DAILY TAKING XARELTO 20 MG TABLET 1 TABLET ORALLY ONCE A DAY TAKING ZOFRAN ODT 8 MG TABLET DISPERSIBLE 1 TAB(S) ORALLY THREE TIMES DAILY NEEDED TAKING PROAIR HFA 108 (90 BASE) MCG/ACT AEROSOL SOLUTION 2 PUFFS NEEDED INHALATION EVERY 6 HRS TAKING AMLODIPINE BESYLATE 2.5 MG TABLET 1 TABLET ORALLY ONCE A DAY, NOTES: SLESUNDAR TAKING REPATHA 140 MG/ML SOLUTION PREFILLED SYRINGE 1 ML SUBCUTANEOUS , NOTES: SLEZKA TAKES EVERY 2 WEEKS TAKING ROSUVASTATIN CALCIUM 10 MG TABLET 1 TABLET ORALLY ONCE A DAY TAKING OMEPRAZOLE 20 MG CAPSULE DELAYED RELEASE 1 CAPSULE ORALLY ONCE A DAY TAKING PLAVIX 75 MG TABLET 1 TABLET ORALLY ONCE A DAY TAKING XANAX XR 1 MG TABLET EXTENDED RELEASE 24 HOUR 0.5 TABLET IN MORNING AND AFTERNOON, 1 TABLET AT NIGHT ORALLY BEFORE BEDTIME TAKING BD INSULIN SYRINGE 25G X 5/8" 1 ML MISCELLANEOUS DIRECTED _ DIRECTED TAKING SM ALCOHOL PREP 70 % PAD DIRECTED EXTERNALLY DIRECTED TAKING CYANOCOBALAMIN 1000 MCG/ML SOLUTION 1 ML INJECTION MONTHLY TAKING OXYCODONE HCL 15 MG TABLET 1 TABLET NEEDED ORALLY EVERY 4 -6 HRS PRN PAIN MDD=4 TAKING LEVOTHYROXINE SODIUM 100 MCG TABLET 1 TABLET ON AN EMPTY STOMACH IN THE MORNING ORALLY DAILY MEDICATION LIST REVIEWED AND RECONCILED WITH THE PATIENT PAST MEDICAL HISTORY LA/CABG/UNSTABLE ANGINA/MULTIPLE STENT PLACEMENTS RCA 2000 2001 2003 2004 2009 =- [facility] HISTORY OF CVA 2002 PULMONARY EMBOLISM 2006/HISTORY OF RECURRENT DVT OSTEOARTHRITIS ELEVATED FACTOR VIII HISTORY OF RENAL STONE HYPOTHYROIDISM/STATUS POST THYROIDECTOMY FOR THYROID CANCER CONSTIPATION ABNORMAL PAP SMEAR - YESSI I WITH + HPV - FOLLOWS AT [facility] UNSPECIFIED URINARY CALCULUS 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 DYSFUNCTION CHRONIC MIGRAINE WITHOUT AURA, WITH INTRACTABLE MIGRAINE, SO STATED, WITHOUT MENTION OF STATUS MIGRAINOSUS ESOPHAGEAL REFLUX DEPRESSIVE DISORDER, NOT ELSEWHERE CLASSIFIED VITAMIN D DEFICIENCY TOBACCO DEPENDENCE ALLERGIES [id number] PERTUSSIS: ANAPHYLAXIS - ALLERGY ALL METALS: SEVERE SWELLING - ALLERGY NITROGLYCERIN: HYPOTENSION - SIDE EFFECTS IBUPROFEN: STOMACH PAIN - SIDE EFFECTS SURGICAL HISTORY 1982 1985 TRIPLE BYPASS 2004 STERNOTOMY WIRE REMOVAL 2005 REMOVAL OF ABDOMINAL ADHESIONS 2008 THYROIDECTOMY 2009 LAPAROSCOPIC CHOLECYSTECTOMY 2009 FAUSTINA FUNDOPLICATION 2009 SACRAL TUMOR REMOVED 08/05 COLPOSCOPY WT[facility], THEN ELIDA - DR CENTENO 03/05 STENT IN HEART IN [place] 01/2015 7 STENTS AND A BALLOON AT [facility] 02/2015 3 CARDIAC STENTS 11/01/2015 EXPLORATORY ON R HIP 12/2016 RIGHT TOTAL HIP REPLACEMENT 03/2017 LEFT TOTAL HIP REPLACEMENT 12/07/17 CARDIAC CATH 03/2018 CYSTOSCOPY 08/2018 HEART CATHORIZATION 03/07/2019 FAMILY HISTORY FATHER: 34 YRS, DIAGNOSED WITH UNSPECIFIED HEART DISEASE MOTHER: 65 YRS, LUNG CANCER, OTHER MALIGNANT NEOPLASM OF UNSPECIFIED SITE, UNSPECIFIED HEART DISEASE MATERNAL GRAND MOTHER: BREAST CANCER THEN METS, OTHER MALIGNANT NEOPLASM OF UNSPECIFIED SITE BROTHER: ALIVE, DIAGNOSED WITH UNSPECIFIED HEART DISEASE 2 SON(S) . BOTH CHILDREN ARE \\N\\NYOUNGEST (BOY)- 2 1\\/2 MELANOMA\\NOLDEST (BOY)- 18 LIVER CANCER. SOCIAL HISTORY GENERAL: TOBACCO USE ARE YOU A:CURRENT SMOKER HOW MANY CIGARETTES A DAY DO YOU SMOKE?5 OR LESS ARE YOU INTERESTED IN QUITTING?THINKING ABOUT QUITTING WORKING ON CUTTING BACK. PATIENT COUNSELED ON THE DANGERS OF TOBACCO USE AND URGED TO QUIT:10/13/2019 COUNSELED THE PATIENT ON SMOKING CESSATION, EDUCATION [id number]/23/2020 VAPORNO E-CIGARETTENO SMOKING CESSATION INFORMATION GIVEN10/13/2019 HAVE YOU HAD A PNEUMOVAX VACCINE?YES LATEX QUESTIONNAIRE LATEX ALLERGY : HAVE YOU EVER DEVELOPED ANY TYPE OF REACTION AFTER HANDLING LATEX PRODUCTS SUCH RUBBER GLOVES, CONDOMS, DIAPHRAGMS, BALLOONS, SOCKS, OR UNDERWEAR?NO LATEX ALLERGY : HAVE YOU EVER DEVELOPED ANY TYPE OF REACTION DURING OR AFTER DENTAL APPOINTMENT, VAGINAL/RECTAL EXAMINATION, SURGICAL PROCEDURE, OR ANY OTHER EXPOSURE?NO DATE ASKED : 10/12/2019 LATEX RISK : HAVE YOU EVER HAD ANY DIFFICULTY BREATHING OR HIVES AFTER EATING OR HANDLING ANY FRUITS, OR VEGETABLES; SUCH KIWI, BANANAS, STONE FRUITS, OR CHESTNUTSNO LATEX RISK : DO YOU HAVE A PREVIOUS PERSONAL HISTORY OF MORE THAN NINE SURGERIES, SPINA BIFIDA, OR REPEATED CATHERIZATIONS? NO LATEX RISK : ARE YOU FREQUENTLY EXPOSED TO LATEX PRODUCTS IN YOUR OCCUPATION?NO LUNG CANCER SCREENING SMOKING STATUS:CURRENT SMOKER BMI CARE GOAL FOLLOW-UP ABOVE NORMAL BMI FOLLOW-UPDIETARY MANAGEMENT EDUCATION, GUIDANCE, AND COUNSELING ALCOHOL SCREENING DID YOU HAVE A DRINK CONTAINING ALCOHOL IN THE PAST YEAR?NO POINTS0 INTERPRETATIONNEGATIVE RECREATIONAL DRUG USE DRUG USE?NO DENIES 12/15/19 CAFFEINE CAFFEINE USE?YES DAILY COFFEE SEXUAL HX HAD SEX IN THE LAST 12 MONTHS (VAGINAL, ORAL, OR ANAL)?NO HAVE YOU EVER HAD AN STD?NO HIV / HEP-C SCREENING HIV TEST OFFERED TO PATIENT:YES DATE OFFERED:04/07/2019 TEST ACCEPTED:NO HEP-C TEST OFFERED TO PATIENT:YES DATE OFFERED:04/07/2019 REASON:PATIENT DECLINED TEST ACCEPTED:NO REASON:PATIENT DECLINED BROCHURE PROVIDED TO PATIENTNO VOODOO [id number] [employer] LANGUAGE LANGUAGES SPOKEN:EGYPTIAN EDUCATION LEVEL OF EDUCATION:FINISHED HIGH SCHOOL LEARNING BARRIERS / SPECIAL NEEDS BARRIERS TO LEARNING?NO HEARING IMPAIRED?NO VISION IMPAIRED?YES COGNITIVELY IMPAIRED?NO :CORRECTIVE LENSES GLASSES READINESS TO LEARN?YES LEARNING PREFERENCES?NO LEARNING CAPABILITIES PRESENT?YES EMOTIONAL BARRIERS?NO SPECIAL DEVICES?NO REWINDER NEEDED?NO DIET: REGULAR. EXERCISE: NO REGULAR EXERCISE,. MARITAL STATUS: . OTHERS AT HOME: SISTER. NEW PATIENT PAIN DIARY TODAY'S VISITNOTES 10/12/2019 PATIENT DESCRIBES PAIN :ACHING, HAVE IT ALL THE TIME, THROBBING FROM 0-10, WHAT LEVEL IS YOUR PAIN TODAY?3 PAIN CLINIC PFS, CLERGY, PUBLIC HEALTH REFERRALS WAS THE PROVIDER NOTIFIED OF ANY PERTINENT INFO?YES HAS THE PATIENT BEEN EDUCATED REGARDING HIS/HER PLAN OF CARE?YES HAS THE PATIENT BEEN EDUCATED REGARDING PAIN, THE RISK FOR PAIN, THE IMPORTANCE OF EFFECTIVE PAIN MANAGEMENT, AND THE PAIN ASSESSMENT PROCESS?YES ADVANCE DIRECTIVE ADVANCE DIRECTIVE DISCUSSED WITH PATIENT:YES 10/12/2019 NO ADVANCED DIRECTIVES, DOES NOT WANT HCP INFO OR ASSISTANCE WITH FORM. JS HOSPITALIZATION/MAJOR DIAGNOSTIC PROCEDURE SURGERIES HEART PROBLEMS / STROKE / PULMONARY EMBOLISM [facility] 03/07/19-03/10/19 REVIEW OF SYSTEMS CONSTITUTIONAL: ANY RECENT FEVER NO . CHILLS NO . WEIGHT CHANGE OF UNKNOWN REASONS NO . GASTROENTEROLOGY: NEW UNEXPLAINABLE CHANGES IN BOWEL CONTROL NO . CONSTIPATION NO . GENITOURINARY: ANY NEW CHANGE IN BLADDER CONTROL? NO . NEUROLOGY: NEW ONSET DIZZINESS OR NEUROLOGICAL CHANGES NOT MENTIONED NO . NEW NUMBNESS OR PAIN PATTERNS NOT MENTIONED AND PERTINENT TO TODAY'S VISIT NO . CARDIOLOGY: NEW CHEST PRESSURE NO . NEW CHEST PAIN NO . RESPIRATORY: UNEXPLAINABLE COUGH NO . NEW SHORTNESS OF BREATH NO . VITAL SIGNS WT 140 LBS, HT 63", BMI 24.80 INDEX, BP 162/77 MM HG, HR 59 /MIN, RR 16 /MIN, TEMP 98.4 F, OXYGEN SAT % 97%, SAFE IN ENV? (Y/N) YES, NA INITIALS WA 09:20, REVIEWED BY: DANIELLE. EXAMINATION GENERAL EXAMINATION: GENERALNO ACUTE DISTRESS, WELL NOURISHED AND HYDRATED. PSYCHAPPROPRIATE MOOD AND AFFECT . FACE:UNREMARKABLE. 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 BRINGS IN MEDICATIONS WHICH IS APPROPRIATE FOR WHAT WAS DISPENSED. RECENT URINE TOXICOLOGY REVIEWED. NO UNAUTHORIZED MEDICATIONS. NO ILLICIT SUBSTANCES AND PRESCRIBED MEDICATIONS WERE PRESENT. URINE TOX TODAY , RISKS OF NARCOTIC/OPIOD MEDICATIONS INCLUDES BUT IS NOT LIMITED TO RISK OF DEPENDANCE/DEVELOPMENT OF ADDICTION, MOOD DISTURBANCE AND DEPRESSION, OSTEOPOROSIS, HORMONAL AND LABIDAL CHANGES, RESPIRATORY DEPRESSION AND . PATIENT IS ADVISED NOT TO DRIVE OR DRINK ALCOHOL WHILE ON THESE MEDICATIONS. PROCEDURE CODES FA211 ESTABILISHED PATIENT [facility] CHARGE DISPOSITION & COMMUNICATION FOLLOW UP 3 MONTHS (REASON: MED MGMNT) ELECTRONICALLY SIGNED BY DEMAR LLAMAS ON 12/15/2019 AT 10:39 AM EDT DISCLAIMER : THIS IS A VISIT SUMMARY EXTRACTED FROM THE [employer] CHART. IT IS NOT A COPY OF THE [employer] PROGRESS NOTE. MTDD
== END ==
LOC: M PAIN 09:30
PROVIDERS: ATTEND Nurse Practitioner Family
DX: M48.061 Spinal stenosis, lumbar region without neurogenic claudication (principal); Z79.891 Long term (current) use of opiate analgesic

== ENCOUNTER → 2020-03-16 | Outpatient (CLI) | payer MEDICARE, MEDICAID | LOC: M PAIN 08:45 | PROVIDERS: ATTEND Nurse Practitioner Family | DX: M47.816 Spondylosis without myelopathy or radiculopathy, lumbar region (principal); Z79.891 Long term (current) use of opiate analgesic ==

== ENCOUNTER → 2020-05-07 | Outpatient (REF) | payer MEDICARE, MEDICAID ==
[2020-05-07 14:22] LABS: ALBUMIN 3.7 GM/DL (3.2-5.2); ALT/SGPT 10 U/L (12-78); BILIRUBIN,TOTAL 0.4 MG/DL (0.2-1.0); BLOOD UREA NITROGEN 8 MG/DL (7-18); CALCIUM LEVEL 9.3 MG/DL (8.5-10.1); CARBON DIOXIDE LEVEL 32 MEQ/L (21-32); CHLORIDE LEVEL 102 MEQ/L (98-107); CHOLESTEROL LEVEL 106 MG/DL (<200); CHOLESTEROL RISK RATIO 1.827 (<5); CREATININE FOR GFR 0.74 MG/DL (0.55-1.30); GLOMERULAR FILTRATION RATE > 60.0 (>51); GLUCOSE, FASTING 103 MG/DL (70-100); HDL CHOLESTEROL 58 MG/DL (>40); LDL CHOLESTEROL 22 MG/DL (<100); NON-HDL-C 48 MG/DL; POTASSIUM SERUM 4.4 MEQ/L (3.5-5.1); SODIUM LEVEL 139 MEQ/L (136-145); THYROID STIMULATING HORMONE 0.104 uIU/ML (0.358-3.740); TRIGLYCERIDES LEVEL 131 MG/DL (<150)
[2020-05-07 14:23] LABS: FOLATE 5.7 NG/ML; VITAMIN B12 LEVEL 1372 PG/ML
[2020-05-07 14:40] LABS: HEMOGLOBIN A1c 5.5 %
== END ==
LOC: M SFHCLERA 08:53
PROVIDERS: ATTEND Family Medicine
DX: R11.0 Nausea (principal); E53.8 Deficiency of other specified B group vitamins; R73.03 Prediabetes; I25.10 Atherosclerotic heart disease of native coronary artery without angina pectoris

== ENCOUNTER → 2020-06-20 | Outpatient (CLI) | payer MEDICARE, MEDICAID ==
--- NOTE | 2020-06-25 00:39 | ECWPNPC ---
PATIENT NAME: WALTER WISE : 1965 GENDER: FEMALE VISIT DATE: 06/20/2020 DISCHARGE DATE: 06/20/2042 VISIT LOCKED DATE TIME: PHYSICIAN: FARNAZ BLEVINS PHYSICIAN PAGER NO: ACTIVE RESOURCE: FARNAZ BLEVINS REASON FOR APPOINTMENT 1. BACK HISTORY OF PRESENT ILLNESS PAIN CENTER INTAKE QUESTIONS: DO YOU HAVE A HISTORY OF MRSA? :NO DO YOU TAKE A BLOOD THINNERS? :YES DO YOU HAVE ANY BLEEDING DISORDERS? :NO ANY NEW NUMBNESS OR WEAKNESS IN YOUR LEGS OR ARMS? :NO ANY PACEMAKER,DEFIBRILLATOR, OR DORSAL COLUMN STIMULATOR? :NO DO YOU HAVE ANY RASHES OR OPEN SORES? :NO ARE YOU ALLERGIC TO IV DYE? :NO ARE YOU DIABETIC? :NO ANY NEW PROBLEMS WITH YOUR MEDICATIONS? :NO HAVE YOU RECEIVED A VACCINE IN THE PAST 30 DAYS? :NO DO YOU PLAN TO RECEIVE A VACCINE IN THE NEXT 21 DAYS? :NO DO YOU NEED ANY PRESCRIPTION? :YES PT WANTS TO DISCUSS MEDICATIONS DO YOU TAKE ANY IMMUNOSUPPRESSIVE MEDICATIONS? :NO IS THERE A CHANCE YOU COULD BE ? :NO ARE YOU BREAST FEEDING? :NO GENERAL: HERE FOR FOLLOW-UP AND MEDICATION MANAGEMENT FOR CHRONIC LOW BACK PAIN AND GENERALIZED BODY PAIN WITH A HISTORY OF MULTIPLE COMORBIDITIES AND SURGERIES. PATIENT IS IN TEARS TODAY. STATES AFTER TAKING OXYCODONE 15 MG SHORT ACTING TABLET APPROXIMATELY 3 HOURS AND SHE IS IN SEVERE PAIN TO THE POINT WHERE SHE HAS TO LAY DOWN. SHE IS TRYING TO BE ACTIVE TO KEEP HER MUSCLE MASS BUILDUP. STATES SHE IS UNABLE TO DO THIS DUE TO THE PAIN. REPORTING SHARP STABBING PAIN IN HER THIGHS. HISTORY OF HIP REPLACEMENT. HAS BEEN ON OXYCODONE 15 MG 4 TIMES A DAY FOR SEVERAL YEARS. I FEEL SHE HAS BECOME TOLERANT TO MEDICATION. DISCUSSED MEDICATION AND TREATMENT OPTIONS. -. FALL RISK SCREENING: SCREENING :TWO OR MORE FALLS WITHOUT INJURY IN THE PAST YEAR PAIN SCREENING: PATIENT HAS A COMPLAINT OF ACUTE OR CHRONIC PAIN :YES LOCATION OF PAIN:LOW BACK INTENSITY OF PAIN (SCALE OF 1 TO 10):6 WHAT DOES YOUR PAIN FEEL LIKE:CONTINOUS, BURNING, ACHING NURSING NOTE: WHEN REVIEWING PHQ2 PT INFORMS ME THAT SHE HAS THERAPIST SHE SPEAKS TO WEEKLY -. CURRENT MEDICATIONS TAKING METOPROLOL SUCCINATE ER 50 MG TABLET EXTENDED RELEASE 24 HOUR 1 TABLET ORALLY ONCE DAILY TAKING XARELTO 20 MG TABLET 1 TABLET ORALLY ONCE A DAY TAKING PROAIR HFA 108 (90 BASE) MCG/ACT AEROSOL SOLUTION 2 PUFFS NEEDED INHALATION EVERY 6 HRS TAKING AMLODIPINE BESYLATE 2.5 MG TABLET 1 TABLET ORALLY ONCE A DAY, NOTES: SLEZKA TAKING REPATHA 140 MG/ML SOLUTION PREFILLED SYRINGE 1 ML SUBCUTANEOUS , NOTES: SLEZKA TAKES EVERY 2 WEEKS TAKING ROSUVASTATIN CALCIUM 10 MG TABLET 1 TABLET ORALLY ONCE A DAY TAKING OMEPRAZOLE 20 MG CAPSULE DELAYED RELEASE 1 CAPSULE ORALLY ONCE A DAY TAKING PLAVIX 75 MG TABLET 1 TABLET ORALLY ONCE A DAY TAKING XANAX XR 0.5 MG TABLET EXTENDED RELEASE 24 HOUR PRN TID ORALLY BEFORE BEDTIME TAKING BD INSULIN SYRINGE 25G X 5/8" 1 ML MISCELLANEOUS DIRECTED _ DIRECTED TAKING SM ALCOHOL PREP 70 % PAD DIRECTED EXTERNALLY DIRECTED TAKING IPRATROPIUM BROMIDE 0.03 % SOLUTION 2 SPRAYS IN EACH NOSTRIL NASALLY TWICE A DAY TAKING CYANOCOBALAMIN 1000 MCG/ML SOLUTION 1 ML INJECTION MONTHLY TAKING ZOFRAN ODT 8 MG TABLET DISPERSIBLE 1 TAB(S) ORALLY THREE TIMES DAILY NEEDED TAKING SYNTHROID 88 MCG TABLET 1 TABLET IN THE MORNING ON AN EMPTY STOMACH ORALLY ONCE A DAY TAKING OXYCODONE HCL 15 MG TABLET 1 TABLET NEEDED ORALLY EVERY 4 -6 HRS PRN PAIN MDD=4 TAKING IPRATROPIUM BROMIDE 0.03 % SOLUTION 2 SPRAYS IN EACH NOSTRIL NASALLY TWICE A DAY NOT-TAKING FLONASE ALLERGY RELIEF 50 MCG/ACT SUSPENSION 1 SPRAY IN EACH NOSTRIL NASALLY ONCE A DAY NEEDED, NOTES: NOW IS MEDICATION LIST REVIEWED AND RECONCILED WITH THE PATIENT PAST MEDICAL HISTORY VA/CABG/UNSTABLE ANGINA/MULTIPLE STENT PLACEMENTS RCA 2000 2001 2003 2004 2009 =- [facility] HISTORY OF CVA 2002 PULMONARY EMBOLISM 2006/HISTORY OF RECURRENT DVT OSTEOARTHRITIS ELEVATED FACTOR VIII HISTORY OF RENAL STONE HYPOTHYROIDISM/STATUS POST THYROIDECTOMY FOR THYROID CANCER CONSTIPATION ABNORMAL PAP SMEAR - YESSI I WITH + HPV - FOLLOWS AT [facility] UNSPECIFIED URINARY CALCULUS 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 DYSFUNCTION CHRONIC MIGRAINE WITHOUT AURA, WITH INTRACTABLE MIGRAINE, SO STATED, WITHOUT MENTION OF STATUS MIGRAINOSUS ESOPHAGEAL REFLUX DEPRESSIVE DISORDER, NOT ELSEWHERE CLASSIFIED VITAMIN D DEFICIENCY TOBACCO DEPENDENCE CHRONIC BACK PAIN ALLERGIES [id number] PERTUSSIS: ANAPHYLAXIS - ALLERGY ALL METALS: SEVERE SWELLING - ALLERGY NITROGLYCERIN: HYPOTENSION - SIDE EFFECTS IBUPROFEN: STOMACH PAIN - SIDE EFFECTS SURGICAL HISTORY 1982 1986 TRIPLE BYPASS 2005 STERNOTOMY WIRE REMOVAL 2006 REMOVAL OF ABDOMINAL ADHESIONS 2008 THYROIDECTOMY 2009 LAPAROSCOPIC CHOLECYSTECTOMY 2010 FAUSTINA FUNDOPLICATION 2009 SACRAL TUMOR REMOVED 08/05 COLPOSCOPY WTSolange, JARRETT MARRERO - DR CENTENO 03/05 STENT IN HEART IN [place] 01/2015 7 STENTS AND A BALLOON AT [facility] 02/2015 3 CARDIAC STENTS 11/01/2015 EXPLORATORY ON R HIP 12/2016 RIGHT TOTAL HIP REPLACEMENT 03/2017 LEFT TOTAL HIP REPLACEMENT 12/07/17 CARDIAC CATH 03/2018 CYSTOSCOPY 08/2018 HEART CATHORIZATION 03/07/2019 FAMILY HISTORY FATHER: 34 YRS, DIAGNOSED WITH UNSPECIFIED HEART DISEASE MOTHER: 65 YRS, LUNG CANCER, UNSPECIFIED HEART DISEASE, OTHER MALIGNANT NEOPLASM OF UNSPECIFIED SITE MATERNAL GRAND MOTHER: BREAST CANCER THEN METS, OTHER MALIGNANT NEOPLASM OF UNSPECIFIED SITE BROTHER: ALIVE, DIAGNOSED WITH UNSPECIFIED HEART DISEASE 2 SON(S) . BOTH CHILDREN ARE \\N\\NYOUNGEST (BOY)- 2 1\\/ MELANOMA\\NOLDEST (BOY)- 18 LIVER CANCER. SOCIAL HISTORY GENERAL: TOBACCO USE ARE YOU A:CURRENT SMOKER ARE YOU INTERESTED IN QUITTING?THINKING ABOUT QUITTING WORKING ON [employer] BACK. COUNSELED THE PATIENT ON SMOKING CESSATION, EDUCATION [id number]/12/2020 HOW MANY CIGARETTES A DAY DO YOU SMOKE?5 OR LESS PATIENT COUNSELED ON THE DANGERS OF TOBACCO USE AND URGED TO QUIT:05/03/2020 HAVE YOU HAD A PNEUMOVAX VACCINE?YES SMOKING CESSATION INFORMATION GIVEN05/03/2020 VAPORNO E-CIGARETTENO LATEX QUESTIONNAIRE LATEX ALLERGY : HAVE YOU EVER DEVELOPED ANY TYPE OF REACTION AFTER HANDLING LATEX PRODUCTS SUCH RUBBER GLOVES, CONDOMS, DIAPHRAGMS, BALLOONS, SOCKS, OR UNDERWEAR?NO LATEX ALLERGY : HAVE YOU EVER DEVELOPED ANY TYPE OF REACTION DURING OR AFTER DENTAL APPOINTMENT, VAGINAL/RECTAL EXAMINATION, SURGICAL PROCEDURE, OR ANY OTHER EXPOSURE?NO LATEX RISK : HAVE YOU EVER HAD ANY DIFFICULTY BREATHING OR HIVES AFTER EATING OR HANDLING ANY FRUITS, OR VEGETABLES; SUCH KIWI, BANANAS, STONE FRUITS, OR CHESTNUTSNO LATEX RISK : DO YOU HAVE A PREVIOUS PERSONAL HISTORY OF MORE THAN NINE SURGERIES, SPINA BIFIDA, OR REPEATED CATHERIZATIONS? NO LATEX RISK : ARE YOU FREQUENTLY EXPOSED TO LATEX PRODUCTS IN YOUR OCCUPATION?NO DATE ASKED : 10/12/2019 LUNG CANCER SCREENING SMOKING STATUS:CURRENT SMOKER BMI CARE GOAL FOLLOW-UP ABOVE NORMAL BMI FOLLOW-UPDIETARY MANAGEMENT EDUCATION, GUIDANCE, AND COUNSELING ALCOHOL SCREENING DID YOU HAVE A DRINK CONTAINING ALCOHOL IN THE PAST YEAR?NO POINTS0 INTERPRETATIONNEGATIVE RECREATIONAL DRUG USE DRUG USE?NO DENIES 12/15/19 CAFFEINE CAFFEINE USE?YES DAILY COFFEE SEXUAL HX HAD SEX IN THE LAST 12 MONTHS (VAGINAL, ORAL, OR ANAL)?NO HAVE YOU EVER HAD AN STD?NO HIV / HEP-C SCREENING HIV TEST OFFERED TO PATIENT:YES DATE OFFERED:04/07/2019 TEST ACCEPTED:NO HEP-C TEST OFFERED TO PATIENT:YES DATE OFFERED:04/07/2019 REASON:PATIENT DECLINED TEST ACCEPTED:NO REASON:PATIENT DECLINED BROCHURE PROVIDED TO PATIENTNO ORTHODOX [id number] RELIGION LANGUAGE LANGUAGES SPOKEN:KINYARWANDA EDUCATION LEVEL OF EDUCATION:FINISHED HIGH SCHOOL LEARNING BARRIERS / SPECIAL NEEDS BARRIERS TO LEARNING?NO HEARING IMPAIRED?NO VISION IMPAIRED?YES COGNITIVELY IMPAIRED?NO :CORRECTIVE LENSES GLASSES READINESS TO LEARN?YES LEARNING PREFERENCES?NO LEARNING CAPABILITIES PRESENT?YES EMOTIONAL BARRIERS?NO SPECIAL DEVICES?NO STORE CASHIER NEEDED?NO DIET: REGULAR. EXERCISE: NO REGULAR EXERCISE,. MARITAL STATUS: . OTHERS AT HOME: SISTER. TODAY'S VISITNOTES 10/12/2019 PATIENT DESCRIBES PAIN :ACHING, HAVE IT ALL THE TIME, THROBBING FROM 0-10, WHAT LEVEL IS YOUR PAIN TODAY?3 PAIN CLINIC PFS, CLERGY, PUBLIC HEALTH REFERRALS WAS THE PROVIDER NOTIFIED OF ANY PERTINENT INFO?YES HAS THE PATIENT BEEN EDUCATED REGARDING HIS/HER PLAN OF CARE?YES HAS THE PATIENT BEEN EDUCATED REGARDING PAIN, THE RISK FOR PAIN, THE IMPORTANCE OF EFFECTIVE PAIN MANAGEMENT, AND THE PAIN ASSESSMENT PROCESS?YES ADVANCE DIRECTIVE ADVANCE DIRECTIVE DISCUSSED WITH PATIENT:YES 10/12/2019 NO ADVANCED DIRECTIVES, DOES NOT WANT HCP INFO OR ASSISTANCE WITH FORM. JS HOSPITALIZATION/MAJOR DIAGNOSTIC PROCEDURE SURGERIES HEART PROBLEMS / STROKE / PULMONARY EMBOLISM [facility] 03/07/19-03/10/19 REVIEW OF SYSTEMS CONSTITUTIONAL: ANY RECENT FEVER NO . CHILLS NO . WEIGHT CHANGE OF UNKNOWN REASONS NO . GASTROENTEROLOGY: NEW UNEXPLAINABLE CHANGES IN BOWEL CONTROL NO . CONSTIPATION NO . GENITOURINARY: ANY NEW CHANGE IN BLADDER CONTROL? NO . NEUROLOGY: NEW ONSET DIZZINESS OR NEUROLOGICAL CHANGES NOT MENTIONED NO . NEW NUMBNESS OR PAIN PATTERNS NOT MENTIONED AND PERTINENT TO TODAY'S VISIT NO . CARDIOLOGY: NEW CHEST PRESSURE NO . NEW CHEST PAIN NO . RESPIRATORY: UNEXPLAINABLE COUGH NO . NEW SHORTNESS OF BREATH NO . VITAL SIGNS WT 137.6 LBS, HT 63", BMI 24.37 INDEX, BP 130/66 MM HG, HR 77 /MIN, RR 18 /MIN, TEMP 96.7 F, OXYGEN SAT % 98%, SAFE IN ENV? (Y/N) YES, NA INITIALS AW [id number], REVIEWED BY: ALEC. EXAMINATION GENERAL EXAMINATION: GENERALAWAKE,ALERT ,PLEASANT . PSYCHAFFECT NORMAL . LUNGS:LUNG CYR ARE CLEAR TO AUSCULTATION BILATERALLY. GOOD MOVEMENT OF AIR . HEART:S1, S2 IN A REGULAR RATE AND RHYTHM. NO SIGNIFICANT MURMURS, RUBS OR GALLOPS NOTED . ASSESSMENTS SPINAL STENOSIS OF LUMBAR REGION AT MULTIPLE LEVELS - M48.061 (PRIMARY) CHRONIC PRESCRIPTION OPIATE USE - Z79.891 TREATMENT SPINAL STENOSIS OF LUMBAR REGION AT MULTIPLE LEVELS REFILL OXYCODONE HCL TABLET, 15 MG, 1 TABLET NEEDED, ORALLY, EVERY 4 -6 HRS PRN PAIN MDD=4, 30 DAY(S), 120, REFILLS 0 START MORPHINE SULFATE ER TABLET EXTENDED RELEASE, 15 MG, 1 TABLET, ORALLY, EVERY A.M. MDD 1, 30 DAYS, 30, REFILLS 0 START GABAPENTIN CAPSULE, 100 MG, 1 CAPSULE, ORALLY, ONCE A DAY, 30 DAY(S), 30, REFILLS 2 NOTES: DUE TO PATIENT'S TOLERANCE TO OXYCODONE WE WILL ATTEMPT TO DO OPIOID ROTATION. I WILL SEE HER BACK IN 6 WEEKS. ADVISED TO CALL US WITH ANY PROBLEMS. ISTOP REGISTRY REVIEWED AND DEMONSTRATES COMPLLIANCE. BRINGS IN MEDICATIONS WHICH IS APPROPRIATE FOR WHAT WAS DISPENSED. RECENT URINE TOXICOLOGY REVIEWED. NO UNAUTHORIZED MEDICATIONS. NO ILLICIT SUBSTANCES AND PRESCRIBED MEDICATIONS WERE PRESENT. URINE TOX [facility] PAIN CENTER NARCOTIC AGREEMENT WAS UPDATEDAND SIGNED TODAY BY THE PATIENT. SEE ATTACHED DOCUMENT FOR FULL DETAILS; SPECIFIC ISSUES WERE REVIEWED: 1) KEEP PAIN MEDS IN THEIR ORIGINAL BOTTLES AND ANY WEEKLY PLANNERS ARE TO BE BROUGHT TO THE PAIN CENTER AT EVERY VISIT. 2) THE PATIENT IS NOT TO INCREASE DOSING OR TIMING OF THEIR PAIN MEDICATION WITHOUT SPECIFIC DIRECTION OF THEIR PAIN CENTERPROVIDER (NOT ER OR OTHER PROVIDERS). 3) ALL PAIN MEDS ARE TO BE KEPT SECURED, IN A LOCKED BOX. 4) NO PAIN MEDS ARE TO BE SHARED WITH ANY OTHER PERSON FOR ANY REASON. 5) NO PAIN MEDS MAY BE TAKEN FROM ANY FRIENDS OR RELATIVES FOR ANY REASON 6) NO MEDS OR SUBSTANCES WHICH ARE NOT LEGAL ARE TO BE USED- NO MARIJUANA, NO COCAINE, AMPHETAMINES, HEROIN, OR OTHERS ARE EVER TO BE USED. 7)URINE TESTING IS DONE TO ACCOUNT FOR MEDS AND SUBSTANCES BEING TAKEN AND WILL BE DONE RANDOMLY. PREVENTIVE MEDICINE PAIN CLINIC TEACHING: MEDICATIONS WE DISCUSSED NEW MEDICATIONS AND PRINTED MATERIALS GIVEN TO PT. WE ALSO DISCUSSED JOUNALING DAILY WHEN SHE TAKES HER PAIN MEDS AND THE RESULTS PT VERBALIZES UNDERSTANDING. PROCEDURE CODES FA211 ESTABILISHED PATIENT [facility] CHARGE DISPOSITION & COMMUNICATION FOLLOW UP 6 WEEKS (REASON: MEDICATION MANAGEMENT/NEW MEDICATION MORPHINE ER AND GABAPENTIN/REVIEW URINE TOX) ELECTRONICALLY SIGNED BY DEMAR LLAMAS ON 06/24/2020 AT 03:36 PM EST DISCLAIMER : THIS IS A VISIT SUMMARY EXTRACTED FROM THE ECLINICALWORKS CHART. IT IS NOT A COPY OF THE ECLINICALWORKS PROGRESS NOTE. AUGUSTUS
== END ==
LOC: M PAIN 09:00
PROVIDERS: ATTEND Nurse Practitioner Family
DX: M48.061 Spinal stenosis, lumbar region without neurogenic claudication (principal); G89.29 Other chronic pain; I25.2 Old myocardial infarction; E03.9 Hypothyroidism, unspecified; K21.9 Gastro-esophageal reflux disease without esophagitis; G43.909 Migraine, unspecified, not intractable, without status migrainosus; F17.210 Nicotine dependence, cigarettes, uncomplicated; Z86.711 Personal history of pulmonary embolism; Z86.718 Personal history of other venous thrombosis and embolism; Z86.59 Personal history of other mental and behavioral disorders; Z95.5 Presence of coronary angioplasty implant and graft; Z96.643 Presence of artificial hip joint, bilateral; Z88.6 Allergy status to analgesic agent; Z88.8 Allergy status to other drugs, medicaments and biological substances; Z88.7 Allergy status to serum and vaccine; Z91.09 Other allergy status, other than to drugs and biological substances; Z79.01 Long term (current) use of anticoagulants; Z79.899 Other long term (current) drug therapy

== ENCOUNTER → 2020-07-03 | Outpatient (REF) | payer MEDICARE, MEDICAID | LOC: M PLALAB 10:04 | PROVIDERS: ATTEND Family Medicine | DX: E03.9 Hypothyroidism, unspecified (principal) ==

== ENCOUNTER → 2020-08-01 | Outpatient (CLI) | payer MEDICARE, MEDICAID ==
[~2020-08-01] MED LIST changes: +METH-1164 PO; -METH1TAB40 PO; -QUET1TAB7; +QUET25TA3
--- NOTE | 2020-08-03 06:04 | ECWPNPC ---
PATIENT NAME: WALTER WISE : 1965 GENDER: FEMALE VISIT DATE: 08/01/2020 DISCHARGE DATE: 08/01/20926 VISIT LOCKED DATE TIME: PHYSICIAN: FARNAZ BLEVINS PHYSICIAN PAGER NO: ACTIVE RESOURCE: FARNAZ BLEVINS REASON FOR APPOINTMENT 1. MEDICATION MANAGEMENT/NEW MEDICATION MORPHINE ER AND GABAPENTIN/REVIEW URINE TOX HISTORY OF PRESENT ILLNESS GENERAL: HERE FOR MEDICATION MANAGEMENT FOLLOW-UP. AT HER LAST VISIT WE STARTED MS CONTIN 15 MG 1 TABLET DAILY AND GABAPENTIN 100 MG DAILY. PATIENT DEVELOPED A RASH WITH GABAPENTIN SO SHE STOPPED THE MEDICATION AFTER DISCUSSING WITH PHARMACIST. SHE THEN BEGAN MS CONTIN 15 MG DAILY. PATIENT IS REPORTING A TREMENDOUS IMPROVEMENT IN PAIN CONTROL. REPORTS SHE'S BEEN ABLE TO TOLERATE LIFTING HER 8 MONTH OLD GRAND CHILD FOR THE FIRST TIME BECAUSE PAIN IS BETTER CONTROLLED. STATES SHE'S BEGUN TO DO DAILY EXERCISING THAT SHE WASN'T ABLE TO DO BEFORE. REPORTS NO SIDE EFFECTS WITH MORPHINE. REPORTING NORMAL BOWEL AND BLADDER FUNCTION. -. FALL RISK SCREENING: SCREENING :TWO OR MORE FALLS WITHOUT INJURY IN THE PAST YEAR PAIN SCREENING: PATIENT HAS A COMPLAINT OF ACUTE OR CHRONIC PAIN :YES LOCATION OF PAIN:LOW BACK INTENSITY OF PAIN (SCALE OF 1 TO 10):1 WHAT DOES YOUR PAIN FEEL LIKE:ACHING, THROBBING, SHOOTING DURATION:CONTINOUS, CONSTANT, ALL DAY PAIN IS INCREASED BY:ACTIVITIES PAIN IS DECREASED BY:USE OF PAIN MEDICATIONS NURSING NOTE: -. PAIN CENTER INTAKE QUESTIONS: DO YOU HAVE A HISTORY OF MRSA? :NO DO YOU TAKE A BLOOD THINNERS? :YES DO YOU HAVE ANY BLEEDING DISORDERS? :NO ANY NEW NUMBNESS OR WEAKNESS IN YOUR LEGS OR ARMS? :NO ANY PACEMAKER,DEFIBRILLATOR, OR DORSAL COLUMN STIMULATOR? :NO DO YOU HAVE ANY RASHES OR OPEN SORES? :NO ARE YOU ALLERGIC TO IV DYE? :NO ARE YOU DIABETIC? :YES CONTROLLED DIABETIC ANY NEW PROBLEMS WITH YOUR MEDICATIONS? :YES GABAPENTIN GIVE HER RASHES HAVE YOU RECEIVED A VACCINE IN THE PAST 30 DAYS? :NO DO YOU PLAN TO RECEIVE A VACCINE IN THE NEXT 21 DAYS? :NO DO YOU NEED ANY PRESCRIPTION? :YES PT WANTS TO DISCUSS MEDICATIONS DO YOU TAKE ANY IMMUNOSUPPRESSIVE MEDICATIONS? :NO IS THERE A CHANCE YOU COULD BE ? :NO ARE YOU BREAST FEEDING? :NO CURRENT MEDICATIONS TAKING OXYCODONE HCL 15 MG TABLET 1 TABLET NEEDED ORALLY EVERY 4 -6 HRS PRN PAIN MDD=4 TAKING GABAPENTIN 100 MG CAPSULE 1 CAPSULE ORALLY ONCE A DAY TAKING METOPROLOL SUCCINATE ER 50 MG TABLET EXTENDED RELEASE 24 HOUR 1 TABLET ORALLY ONCE DAILY TAKING XARELTO 20 MG TABLET 1 TABLET ORALLY ONCE A DAY TAKING PROAIR HFA 108 (90 BASE) MCG/ACT AEROSOL SOLUTION 2 PUFFS NEEDED INHALATION EVERY 6 HRS TAKING AMLODIPINE BESYLATE 2.5 MG TABLET 1 TABLET ORALLY ONCE A DAY, NOTES: SLEZKA TAKING REPATHA 140 MG/ML SOLUTION PREFILLED SYRINGE 1 ML SUBCUTANEOUS , NOTES: SLEZKA TAKES EVERY 2 WEEKS TAKING ROSUVASTATIN CALCIUM 10 MG TABLET 1 TABLET ORALLY ONCE A DAY TAKING OMEPRAZOLE 20 MG CAPSULE DELAYED RELEASE 1 CAPSULE ORALLY ONCE A DAY TAKING PLAVIX 75 MG TABLET 1 TABLET ORALLY ONCE A DAY TAKING XANAX XR 0.5 MG TABLET EXTENDED RELEASE 24 HOUR PRN TID ORALLY BEFORE BEDTIME TAKING BD INSULIN SYRINGE 25G X 5/8" 1 ML MISCELLANEOUS DIRECTED _ DIRECTED TAKING SM ALCOHOL PREP 70 % PAD DIRECTED EXTERNALLY DIRECTED TAKING IPRATROPIUM BROMIDE 0.03 % SOLUTION 2 SPRAYS IN EACH NOSTRIL NASALLY TWICE A DAY TAKING CYANOCOBALAMIN 1000 MCG/ML SOLUTION 1 ML INJECTION MONTHLY TAKING ZOFRAN ODT 8 MG TABLET DISPERSIBLE 1 TAB(S) ORALLY THREE TIMES DAILY NEEDED TAKING SYNTHROID 88 MCG TABLET 1 TABLET IN THE MORNING ON AN EMPTY STOMACH ORALLY ONCE A DAY TAKING IPRATROPIUM BROMIDE 0.03 % SOLUTION 2 SPRAYS IN EACH NOSTRIL NASALLY TWICE A DAY TAKING MORPHINE SULFATE ER 15 MG TABLET EXTENDED RELEASE 1 TABLET ORALLY EVERY A.M. MDD 1 NOT-TAKING FLONASE ALLERGY RELIEF 50 MCG/ACT SUSPENSION 1 SPRAY IN EACH NOSTRIL NASALLY ONCE A DAY NEEDED, NOTES: NOW IS MEDICATION LIST REVIEWED AND RECONCILED WITH THE PATIENT PAST MEDICAL HISTORY AL/CABG/UNSTABLE ANGINA/MULTIPLE STENT PLACEMENTS RCA 2001 2002 2004 2004 2009 =- [facility] HISTORY OF CVA 2002 PULMONARY EMBOLISM 2007/HISTORY OF RECURRENT DVT OSTEOARTHRITIS ELEVATED FACTOR VIII HISTORY OF RENAL STONE HYPOTHYROIDISM/STATUS POST THYROIDECTOMY FOR THYROID CANCER CONSTIPATION ABNORMAL PAP SMEAR - YESSI I WITH + HPV - FOLLOWS AT [facility] UNSPECIFIED URINARY CALCULUS 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 DYSFUNCTION CHRONIC MIGRAINE WITHOUT AURA, WITH INTRACTABLE MIGRAINE, SO STATED, WITHOUT MENTION OF STATUS MIGRAINOSUS ESOPHAGEAL REFLUX DEPRESSIVE DISORDER, NOT ELSEWHERE CLASSIFIED VITAMIN D DEFICIENCY TOBACCO DEPENDENCE CHRONIC BACK PAIN ALLERGIES [id number] PERTUSSIS: ANAPHYLAXIS - ALLERGY ALL METALS: SEVERE SWELLING - ALLERGY NITROGLYCERIN: HYPOTENSION - SIDE EFFECTS IBUPROFEN: STOMACH PAIN - SIDE EFFECTS SOCIAL HISTORY GENERAL: TOBACCO USE ARE YOU A:CURRENT SMOKER ARE YOU INTERESTED IN QUITTING?THINKING ABOUT QUITTING WORKING ON [employer] BACK. COUNSELED THE PATIENT ON SMOKING CESSATION, EDUCATION [id number]/10/2021 HOW MANY CIGARETTES A DAY DO YOU SMOKE?5 OR LESS PATIENT COUNSELED ON THE DANGERS OF TOBACCO USE AND URGED TO QUIT:08/01/2020 HAVE YOU HAD A PNEUMOVAX VACCINE?YES SMOKING CESSATION INFORMATION GIVEN08/01/2020 VAPORNO E-CIGARETTENO LATEX QUESTIONNAIRE LATEX ALLERGY : HAVE YOU EVER DEVELOPED ANY TYPE OF REACTION AFTER HANDLING LATEX PRODUCTS SUCH RUBBER GLOVES, CONDOMS, DIAPHRAGMS, BALLOONS, SOCKS, OR UNDERWEAR?NO LATEX ALLERGY : HAVE YOU EVER DEVELOPED ANY TYPE OF REACTION DURING OR AFTER DENTAL APPOINTMENT, VAGINAL/RECTAL EXAMINATION, SURGICAL PROCEDURE, OR ANY OTHER EXPOSURE?NO LATEX RISK : HAVE YOU EVER HAD ANY DIFFICULTY BREATHING OR HIVES AFTER EATING OR HANDLING ANY FRUITS, OR VEGETABLES; SUCH KIWI, BANANAS, STONE FRUITS, OR CHESTNUTSNO LATEX RISK : DO YOU HAVE A PREVIOUS PERSONAL HISTORY OF MORE THAN NINE SURGERIES, SPINA BIFIDA, OR REPEATED CATHERIZATIONS? NO LATEX RISK : ARE YOU FREQUENTLY EXPOSED TO LATEX PRODUCTS IN YOUR OCCUPATION?NO DATE ASKED : 08/01/2020 ALCOHOL USE: NO. LUNG CANCER SCREENING SMOKING STATUS:CURRENT SMOKER BMI CARE GOAL FOLLOW-UP ABOVE NORMAL BMI FOLLOW-UPDIETARY MANAGEMENT EDUCATION, GUIDANCE, AND COUNSELING ALCOHOL SCREENING DID YOU HAVE A DRINK CONTAINING ALCOHOL IN THE PAST YEAR?NO POINTS0 INTERPRETATIONNEGATIVE RECREATIONAL DRUG USE DRUG USE?NO DENIES 12/15/19 CAFFEINE CAFFEINE USE?YES DAILY COFFEE SEXUAL HX HAD SEX IN THE LAST 12 MONTHS (VAGINAL, ORAL, OR ANAL)?NO HAVE YOU EVER HAD AN STD?NO HIV / HEP-C SCREENING HIV TEST OFFERED TO PATIENT:YES DATE OFFERED:04/07/2019 TEST ACCEPTED:NO HEP-C TEST OFFERED TO PATIENT:YES DATE OFFERED:04/07/2019 REASON:PATIENT DECLINED TEST ACCEPTED:NO REASON:PATIENT DECLINED BROCHURE PROVIDED TO PATIENTNO RELIGIOUS [id number] ALEVISM LANGUAGE LANGUAGES SPOKEN:TAJIK EDUCATION LEVEL OF EDUCATION:FINISHED HIGH SCHOOL LEARNING BARRIERS / SPECIAL NEEDS CHANGE FROM LAST VISIT?YES BARRIERS TO LEARNING?NO HEARING IMPAIRED?NO VISION IMPAIRED?YES :CORRECTIVE LENSES GLASSES COGNITIVELY IMPAIRED?NO READINESS TO LEARN?YES LEARNING PREFERENCES?NO LEARNING CAPABILITIES PRESENT?YES EMOTIONAL BARRIERS?NO SPECIAL DEVICES?YES :CANE, WALKER NEEDED INTEGRATION SPECIALIST NEEDED?NO DIET: REGULAR. EXERCISE: NO REGULAR EXERCISE,. MARITAL STATUS: . OTHERS AT HOME: SISTER. TODAY'S VISITNOTES 10/12/2019 PATIENT DESCRIBES PAIN :ACHING, HAVE IT ALL THE TIME, THROBBING FROM 0-10, WHAT LEVEL IS YOUR PAIN TODAY?3 - WAS THE PROVIDER NOTIFIED OF ANY PERTINENT INFO?YES HAS THE PATIENT BEEN EDUCATED REGARDING HIS/HER PLAN OF CARE?YES HAS THE PATIENT BEEN EDUCATED REGARDING PAIN, THE RISK FOR PAIN, THE IMPORTANCE OF EFFECTIVE PAIN MANAGEMENT, AND THE PAIN ASSESSMENT PROCESS?YES ADVANCE DIRECTIVE ADVANCE DIRECTIVE DISCUSSED WITH PATIENT:YES 10/12/2019 NO ADVANCED DIRECTIVES, DOES NOT WANT HCP INFO OR ASSISTANCE WITH FORM. JS REVIEW OF SYSTEMS CONSTITUTIONAL: ANY RECENT FEVER NO . CHILLS NO . WEIGHT CHANGE OF UNKNOWN REASONS NO . GASTROENTEROLOGY: NEW UNEXPLAINABLE CHANGES IN BOWEL CONTROL NO . CONSTIPATION NO . GENITOURINARY: ANY NEW CHANGE IN BLADDER CONTROL? NO . NEUROLOGY: NEW ONSET DIZZINESS OR NEUROLOGICAL CHANGES NOT MENTIONED NO . NEW NUMBNESS OR PAIN PATTERNS NOT MENTIONED AND PERTINENT TO TODAY'S VISIT NO . CARDIOLOGY: NEW CHEST PRESSURE NO . NEW CHEST PAIN NO . RESPIRATORY: UNEXPLAINABLE COUGH NO . NEW SHORTNESS OF BREATH NO . VITAL SIGNS WT 136.4 LBS, HT 63", BMI 24.16 INDEX, BP 195/95 MM HG, REPEAT BP 183/88 MANUAL, HR 69 /MIN, RR 18 /MIN, TEMP 94.6 F, OXYGEN SAT % 99%, SAFE IN ENV? 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 EXAMINATION GENERAL EXAMINATION: GENERALAWAKE,ALERT ,PLEASANT . PSYCHAFFECT NORMAL . LUNGS:LUNG CYR ARE CLEAR TO AUSCULTATION BILATERALLY. GOOD MOVEMENT OF AIR . HEART:S1, S2 IN A REGULAR RATE AND RHYTHM. NO SIGNIFICANT MURMURS, RUBS OR GALLOPS NOTED . ASSESSMENTS SPINAL STENOSIS OF LUMBAR REGION AT MULTIPLE LEVELS - M48.061 (PRIMARY) CHRONIC PRESCRIPTION OPIATE USE - Z79.891 TREATMENT SPINAL STENOSIS OF LUMBAR REGION AT MULTIPLE LEVELS REFILL OXYCODONE HCL TABLET, 15 MG, 1 TABLET NEEDED, ORALLY, EVERY 4 -6 HRS PRN PAIN MDD=4, 30 DAY(S), 120, REFILLS 0 REFILL MORPHINE SULFATE ER TABLET EXTENDED RELEASE, 15 MG, 1 TABLET, ORALLY, EVERY A.M. MDD 1, 30 DAYS, 30, REFILLS 0 NOTES: ISTOP REGISTRY REVIEWED AND DEMONSTRATES COMPLLIANCE. BRINGS IN MEDICATIONS WHICH IS APPROPRIATE FOR WHAT WAS DISPENSED. RECENT URINE TOXICOLOGY REVIEWED. NO UNAUTHORIZED MEDICATIONS. NO ILLICIT SUBSTANCES AND PRESCRIBED MEDICATIONS WERE PRESENT. , RISKS OF NARCOTIC/OPIOD MEDICATIONS INCLUDES BUT IS NOT LIMITED TO RISK OF DEPENDANCE/DEVELOPMENT OF ADDICTION, MOOD DISTURBANCE AND DEPRESSION, OSTEOPOROSIS, HORMONAL AND LABIDAL CHANGES, RESPIRATORY DEPRESSION AND . PATIENT IS ADVISED NOT TO DRIVE OR DRINK ALCOHOL WHILE ON THESE MEDICATIONS , REVIEWED WITH PATIENT THE POTENTIAL RISK OF INCREASED SEDATION, RESPIRATORY SUPPRESSION AND WITH THE COMBINATION OF BENZODIAZAPINE AND OPIOD MEDICATIONS. PATIENT STATES HE UNDERSTANDS THIS RISK AND WISHES TO CONTINUE WITH THERAPY. PROCEDURE CODES FA211 ESTABILISHED PATIENT [facility] CHARGE DISPOSITION & COMMUNICATION FOLLOW UP 3 MONTHS (REASON: MEDICATION MANAGEMENT) ELECTRONICALLY SIGNED BY DEMAR LLAMAS ON 08/02/2020 AT 09:40 PM EST DISCLAIMER : THIS IS A VISIT SUMMARY EXTRACTED FROM THE [employer] CHART. IT IS NOT A COPY OF THE [employer] PROGRESS NOTE. AUGUSTUS
== END ==
LOC: M PAIN 09:15
PROVIDERS: ATTEND Nurse Practitioner Family
DX: M48.061 Spinal stenosis, lumbar region without neurogenic claudication (principal); I25.2 Old myocardial infarction; M19.90 Unspecified osteoarthritis, unspecified site; E03.9 Hypothyroidism, unspecified; K59.00 Constipation, unspecified; G43.709 Chronic migraine without aura, not intractable, without status migrainosus; K21.9 Gastro-esophageal reflux disease without esophagitis; F32.9 Major depressive disorder, single episode, unspecified; E55.9 Vitamin D deficiency, unspecified; F17.210 Nicotine dependence, cigarettes, uncomplicated; Z79.891 Long term (current) use of opiate analgesic; Z86.73 Personal history of transient ischemic attack (TIA), and cerebral infarction without residual deficits; Z86.718 Personal history of other venous thrombosis and embolism; Z86.711 Personal history of pulmonary embolism; Z79.02 Long term (current) use of antithrombotics/antiplatelets; Z79.899 Other long term (current) drug therapy; Z88.6 Allergy status to analgesic agent; Z88.7 Allergy status to serum and vaccine; Z91.048 Other nonmedicinal substance allergy status; Z88.8 Allergy status to other drugs, medicaments and biological substances

== ENCOUNTER → 2020-11-07 | Outpatient (CLI) | payer MEDICARE, MEDICAID ==
--- NOTE | 2020-11-07 11:09 | REPMRS ---
Patient History The patient states she has not had a clinical breast exam in over a year. Patient is postmenopausal. Family history of breast cancer at age 50 or over in maternal grandmother. Took hormonal contraceptives for 3 years. Tomosynthesis is performed. Volpara breast density is b[facility] of [facility] 8.4%. Patient states no breast complaints today. Patient has signed MRS History Sheet. Digital Woman Screen Mammo: November 07, 2020 - Exam #: [id number] Bilateral CC and MLO view(s) were taken. Technologist: RT Celina Prior study comparison: November 04, 2013, digital woman screen mammo performed at [facility] [place]. August 18, 2006, bilateral mammogram, performed at [facility]. FINDINGS: There are scattered fibroglandular densities. There has been no change in the appearance of the mammogram from the prior studies. There is a mild amount of residual fibroglandular tissue which is fairly symmetric. There is no interval development of dominant mass, architectural distortion, or clustered microcalcification suggestive of malignancy. Assessment: BI-RADS/ACR category 1 mammogram. Negative Mammogram. Recommendation Routine screening mammogram in 1 year (for women over age 40). This mammogram was interpreted with the aid of an FDA-approved computer-aided dectection system. Electronically Signed By: Dimitry Stevens MD 11/07/20 [id number]
== END ==
LOC: M WHC 09:09
PROVIDERS: ATTEND Family Medicine
DX: Z12.31 Encounter for screening mammogram for malignant neoplasm of breast (principal)

== ENCOUNTER → 2020-11-08 | Outpatient (CLI) | payer MEDICARE, MEDICAID ==
--- NOTE | 2020-11-11 23:01 | ECWPNPC ---
PATIENT NAME: WALTER WISE : 1965 GENDER: FEMALE VISIT DATE: 11/08/2020 DISCHARGE DATE: 11/08/20 1030 VISIT LOCKED DATE TIME: PHYSICIAN: FARNAZ BLEVINS PHYSICIAN PAGER NO: ACTIVE RESOURCE: FARNAZ BLEVINS REASON FOR APPOINTMENT 1. LOW BACK/MEDICATIO MANAGEMENT HISTORY OF PRESENT ILLNESS GENERAL: HERE FOR MEDICATION MANAGEMENT FOLLOW-UP. APPROXIMATLEY 6 MONTHS AGO WE STARTED MS CONTIN 15 MG 1 TABLET DAILY AND GABAPENTIN 100 MG DAILY. PATIENT DEVELOPED A RASH WITH GABAPENTIN SO SHE STOPPED THE MEDICATION AFTER DISCUSSING WITH PHARMACIST. PATIENT IS REPORTING A TREMENDOUS IMPROVEMENT IN PAIN CONTROL. REPORTS SHE'S BEEN ABLE TO TOLERATE LIFTING HER GRAND CHILD FOR THE FIRST TIME BECAUSE PAIN IS BETTER CONTROLLED. STATES SHE'S BEGUN TO DO DAILY EXERCISING THAT SHE WASN'T ABLE TO DO BEFORE. REPORTS NO SIDE EFFECTS WITH MORPHINE. REPORTING NORMAL BOWEL AND BLADDER FUNCTION. - -. FALL RISK SCREENING: SCREENING : NO FALLS REPORTED IN THE LAST YEAR, 2 FALLS THIS YEAR NO INJURIES . PAIN SCREENING: PATIENT HAS A COMPLAINT OF ACUTE OR CHRONIC PAIN :YES LOCATION OF PAIN:LOW BACK INTENSITY OF PAIN (SCALE OF 1 TO 10):2 WHAT DOES YOUR PAIN FEEL LIKE:ACHING, CONTINOUS, THROBBING DURATION:CONTINOUS, CONSTANT PAIN IS INCREASED BY:ACTIVITIES NURSING NOTE: -. PAIN CENTER INTAKE QUESTIONS: DO YOU HAVE A HISTORY OF MRSA? :NO DO YOU TAKE A BLOOD THINNERS? :YES DO YOU HAVE ANY BLEEDING DISORDERS? :NO ANY NEW NUMBNESS OR WEAKNESS IN YOUR LEGS OR ARMS? :NO ANY PACEMAKER,DEFIBRILLATOR, OR DORSAL COLUMN STIMULATOR? :NO DO YOU HAVE ANY RASHES OR OPEN SORES? :NO ARE YOU ALLERGIC TO IV DYE? :NO ARE YOU DIABETIC? :YES CONTROLLED DIABETIC ANY NEW PROBLEMS WITH YOUR MEDICATIONS? :NO HAVE YOU RECEIVED A VACCINE IN THE PAST 30 DAYS? :YES 2ND COVID 10/11/2020 DO YOU PLAN TO RECEIVE A VACCINE IN THE NEXT 21 DAYS? :YES SHINGLES NOT SURE OF THE DATE DO YOU NEED ANY PRESCRIPTION? :NO DO YOU TAKE ANY IMMUNOSUPPRESSIVE MEDICATIONS? :NO IS THERE A CHANCE YOU COULD BE ? :NO ARE YOU BREAST FEEDING? :NO CURRENT MEDICATIONS TAKING LEVOCETIRIZINE DIHYDROCHLORIDE 5 MG TABLET 1 TABLET IN THE EVENING ORALLY ONCE A DAY TAKING REPATHA 140 MG/ML SOLUTION PREFILLED SYRINGE 1 ML SUBCUTANEOUS , NOTES: CHARI TAKES EVERY 2 WEEKS TAKING ROSUVASTATIN CALCIUM 10 MG TABLET 1 TABLET ORALLY ONCE A DAY TAKING PROAIR HFA 108 (90 BASE) MCG/ACT AEROSOL SOLUTION 2 PUFFS NEEDED INHALATION EVERY 6 HRS TAKING CYANOCOBALAMIN 1000 MCG/ML SOLUTION 1 ML INJECTION MONTHLY TAKING OMEPRAZOLE 20 MG CAPSULE DELAYED RELEASE 1 CAPSULE ORALLY ONCE A DAY TAKING XANAX XR 0.5 MG TABLET EXTENDED RELEASE 24 HOUR PRN TID ORALLY BEFORE BEDTIME TAKING BD INSULIN SYRINGE 25G X 5/8" 1 ML MISCELLANEOUS DIRECTED _ DIRECTED TAKING SM ALCOHOL PREP 70 % PAD DIRECTED EXTERNALLY DIRECTED TAKING ZOFRAN ODT 8 MG TABLET DISPERSIBLE 1 TAB(S) ORALLY THREE TIMES DAILY NEEDED TAKING MORPHINE SULFATE ER 15 MG TABLET EXTENDED RELEASE 1 TABLET ORALLY EVERY A.M. MDD 1 TAKING IPRATROPIUM BROMIDE 0.03 % SOLUTION 2 SPRAYS IN EACH NOSTRIL NASALLY TWICE A DAY TAKING METOPROLOL SUCCINATE ER 100 MG TABLET EXTENDED RELEASE 24 HOUR 1 TABLET ORALLY ONCE DAILY TAKING XARELTO 20 MG TABLET 1 TABLET ORALLY ONCE A DAY TAKING PLAVIX 75 MG TABLET 1 TABLET ORALLY ONCE A DAY TAKING AMLODIPINE BESYLATE 2.5 MG TABLET 1 TABLET ORALLY ONCE A DAY, NOTES: SLEZKA TAKING SYNTHROID 88 MCG TABLET 1 TABLET IN THE MORNING ON AN EMPTY STOMACH ORALLY ONCE A DAY TAKING OXYCODONE HCL 15 MG TABLET 1 TABLET NEEDED ORALLY EVERY 4 -6 HRS PRN PAIN MDD=4 MEDICATION LIST REVIEWED AND RECONCILED WITH THE PATIENT PAST MEDICAL HISTORY CA/CABG/UNSTABLE ANGINA/MULTIPLE STENT PLACEMENTS RCA 2000 2001 2003 2004 2009 =- [facility] HISTORY OF CVA 2002 PULMONARY EMBOLISM 2006/HISTORY OF RECURRENT DVT OSTEOARTHRITIS ELEVATED FACTOR VIII HISTORY OF RENAL STONE HYPOTHYROIDISM/STATUS POST THYROIDECTOMY FOR THYROID CANCER CONSTIPATION ABNORMAL PAP SMEAR - YESSI I WITH + HPV - FOLLOWS AT [facility] UNSPECIFIED URINARY CALCULUS 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 DYSFUNCTION CHRONIC MIGRAINE WITHOUT AURA, WITH INTRACTABLE MIGRAINE, SO STATED, WITHOUT MENTION OF STATUS MIGRAINOSUS ESOPHAGEAL REFLUX DEPRESSIVE DISORDER, NOT ELSEWHERE CLASSIFIED VITAMIN D DEFICIENCY TOBACCO DEPENDENCE CHRONIC BACK PAIN 2 FALLS THIS YEAR NO INJURIES ALLERGIES [id number] PERTUSSIS: ANAPHYLAXIS - ALLERGY ALL METALS: SEVERE SWELLING - ALLERGY NITROGLYCERIN: HYPOTENSION - SIDE EFFECTS IBUPROFEN: STOMACH PAIN - SIDE EFFECTS SURGICAL HISTORY 1982 1985 TRIPLE BYPASS 2004 STERNOTOMY WIRE REMOVAL 2006 REMOVAL OF ABDOMINAL ADHESIONS 2008 THYROIDECTOMY 2008 LAPAROSCOPIC CHOLECYSTECTOMY 2009 FAUSTINA FUNDOPLICATION 2009 SACRAL TUMOR REMOVED 08/05 COLPOSCOPY WTW, JARRETT MARRERO - DR CENTENO 03/05 STENT IN HEART IN [place] 01/2015 7 STENTS AND A BALLOON AT [facility] 02/2015 3 CARDIAC STENTS 11/01/2015 EXPLORATORY ON R HIP 12/2016 RIGHT TOTAL HIP REPLACEMENT 03/2017 LEFT TOTAL HIP REPLACEMENT 12/07/17 CARDIAC CATH 03/2018 CYSTOSCOPY 08/2018 HEART CATHORIZATION 03/07/2019 ORAL SURG 11/13/2020 SOCIAL HISTORY GENERAL: TOBACCO USE ARE YOU A:CURRENT SMOKER ARE YOU INTERESTED IN QUITTING?THINKING ABOUT QUITTING WORKING ON [employer] BACK. COUNSELED THE PATIENT ON SMOKING CESSATION, EDUCATION [id number]/20/2021 HOW MANY CIGARETTES A DAY DO YOU SMOKE?5 OR LESS HOW SOON AFTER YOU WAKE UP DO YOU SMOKE YOUR FIRST CIGARETTE? 3 HOURS PATIENT COUNSELED ON THE DANGERS OF TOBACCO USE AND URGED TO QUIT:11/08/2020 HAVE YOU HAD A PNEUMOVAX VACCINE?YES SMOKING CESSATION INFORMATION GIVEN11/08/2020 VAPORNO E-CIGARETTENO LATEX QUESTIONNAIRE LATEX ALLERGY : HAVE YOU EVER DEVELOPED ANY TYPE OF REACTION AFTER HANDLING LATEX PRODUCTS SUCH RUBBER GLOVES, CONDOMS, DIAPHRAGMS, BALLOONS, SOCKS, OR UNDERWEAR?NO LATEX ALLERGY : HAVE YOU EVER DEVELOPED ANY TYPE OF REACTION DURING OR AFTER DENTAL APPOINTMENT, VAGINAL/RECTAL EXAMINATION, SURGICAL PROCEDURE, OR ANY OTHER EXPOSURE?NO LATEX RISK : HAVE YOU EVER HAD ANY DIFFICULTY BREATHING OR HIVES AFTER EATING OR HANDLING ANY FRUITS, OR VEGETABLES; SUCH KIWI, BANANAS, STONE FRUITS, OR CHESTNUTSNO LATEX RISK : DO YOU HAVE A PREVIOUS PERSONAL HISTORY OF MORE THAN NINE SURGERIES, SPINA BIFIDA, OR REPEATED CATHERIZATIONS? NO LATEX RISK : ARE YOU FREQUENTLY EXPOSED TO LATEX PRODUCTS IN YOUR OCCUPATION?NO DATE ASKED : 11/08/2020 ALCOHOL USE: NO. LUNG CANCER SCREENING SMOKING STATUS:CURRENT SMOKER BMI CARE GOAL FOLLOW-UP ABOVE NORMAL BMI FOLLOW-UPDIETARY MANAGEMENT EDUCATION, GUIDANCE, AND COUNSELING ALCOHOL SCREENING DID YOU HAVE A DRINK CONTAINING ALCOHOL IN THE PAST YEAR?NO POINTS0 INTERPRETATIONNEGATIVE RECREATIONAL DRUG USE DRUG USE?NO DENIES 12/15/19 CAFFEINE CAFFEINE USE?YES DAILY COFFEE SEXUAL HX HAD SEX IN THE LAST 12 MONTHS (VAGINAL, ORAL, OR ANAL)?NO HAVE YOU EVER HAD AN STD?NO HIV / HEP-C SCREENING HIV TEST OFFERED TO PATIENT:YES DATE OFFERED:04/07/2019 TEST ACCEPTED:NO HEP-C TEST OFFERED TO PATIENT:YES DATE OFFERED:04/07/2019 REASON:PATIENT DECLINED TEST ACCEPTED:NO REASON:PATIENT DECLINED BROCHURE PROVIDED TO PATIENTNO [employer] [id number] [employer] LANGUAGE LANGUAGES SPOKEN:KHMER EDUCATION LEVEL OF EDUCATION:FINISHED HIGH SCHOOL LEARNING BARRIERS / SPECIAL NEEDS CHANGE FROM LAST VISIT?YES BARRIERS TO LEARNING?NO HEARING IMPAIRED?NO VISION IMPAIRED?YES :CORRECTIVE LENSES GLASSES COGNITIVELY IMPAIRED?NO READINESS TO LEARN?YES LEARNING PREFERENCES?NO LEARNING CAPABILITIES PRESENT?YES EMOTIONAL BARRIERS?NO SPECIAL DEVICES?YES :CANE, WALKER NEEDED EMERGENCY WORKER NEEDED?NO DIET: REGULAR. EXERCISE: NO REGULAR EXERCISE,. MARITAL STATUS: . OTHERS AT HOME: SISTER. TODAY'S VISITNOTES 10/12/2019 PATIENT DESCRIBES PAIN :ACHING, HAVE IT ALL THE TIME, THROBBING FROM 0-10, WHAT LEVEL IS YOUR PAIN TODAY?3 - WAS THE PROVIDER NOTIFIED OF ANY PERTINENT INFO?YES HAS THE PATIENT BEEN EDUCATED REGARDING HIS/HER PLAN OF CARE?YES HAS THE PATIENT BEEN EDUCATED REGARDING PAIN, THE RISK FOR PAIN, THE IMPORTANCE OF EFFECTIVE PAIN MANAGEMENT, AND THE PAIN ASSESSMENT PROCESS?YES ADVANCE DIRECTIVE ADVANCE DIRECTIVE DISCUSSED WITH PATIENT:YES 10/12/2019 NO ADVANCED DIRECTIVES, DOES NOT WANT HCP INFO OR ASSISTANCE WITH FORM. JS HOSPITALIZATION/MAJOR DIAGNOSTIC PROCEDURE SURGERIES HEART PROBLEMS / STROKE / PULMONARY EMBOLISM [facility] 03/07/19-03/10/19 REVIEW OF SYSTEMS CONSTITUTIONAL: ANY RECENT FEVER NO . CHILLS NO . WEIGHT CHANGE OF UNKNOWN REASONS NO . GASTROENTEROLOGY: NEW UNEXPLAINABLE CHANGES IN BOWEL CONTROL NO . CONSTIPATION NO . GENITOURINARY: ANY NEW CHANGE IN BLADDER CONTROL? NO . NEUROLOGY: NEW ONSET DIZZINESS OR NEUROLOGICAL CHANGES NOT MENTIONED NO . NEW NUMBNESS OR PAIN PATTERNS NOT MENTIONED AND PERTINENT TO TODAY'S VISIT NO . CARDIOLOGY: NEW CHEST PRESSURE NO . PATIENT DENIES NO . RESPIRATORY: UNEXPLAINABLE COUGH NO . NEW SHORTNESS OF BREATH NO . VITAL SIGNS WT 134 LBS, HT 63", BMI 23.73 INDEX, BP 172/79 MM HG, REPEAT BP 167/81 MM HG, HR 66 /MIN, RR 16 /MIN, TEMP 98.7 F, OXYGEN SAT % 97%, SAFE IN ENV? (Y/N) YES, NA INITIALS SC 10:05T.MATILDE CHRISTOPHER. EXAMINATION GENERAL EXAMINATION: GENERALAWAKE,ALERT ,PLEASANT . PSYCHAFFECT NORMAL . LUNGS:LUNG CYR ARE CLEAR TO AUSCULTATION BILATERALLY. GOOD MOVEMENT OF AIR . HEART:S1, S2 IN A REGULAR RATE AND RHYTHM. NO SIGNIFICANT MURMURS, RUBS OR GALLOPS NOTED . ASSESSMENTS SPINAL STENOSIS OF LUMBAR REGION AT MULTIPLE LEVELS - M48.061 (PRIMARY) TREATMENT SPINAL STENOSIS OF LUMBAR REGION AT MULTIPLE LEVELS CONTINUE MORPHINE SULFATE ER TABLET EXTENDED RELEASE, 15 MG, 1 TABLET, ORALLY, EVERY A.M. MDD 1 CONTINUE OXYCODONE HCL TABLET, 15 MG, 1 TABLET NEEDED, ORALLY, EVERY 4 -6 HRS PRN PAIN MDD=4 NOTES: ISTOP REGISTRY REVIEWED AND DEMONSTRATES COMPLLIANCE. BRINGS IN MEDICATIONS WHICH IS APPROPRIATE FOR WHAT WAS DISPENSED. RECENT URINE TOXICOLOGY REVIEWED. NO UNAUTHORIZED MEDICATIONS. NO ILLICIT SUBSTANCES AND PRESCRIBED MEDICATIONS WERE PRESENT. PROCEDURE CODES [id number] ESTABILISHED PATIENT [facility] CHARGE DISPOSITION & COMMUNICATION FOLLOW UP 3 MONTHS (REASON: MED MGMNT/UTOX) ELECTRONICALLY SIGNED BY DEMAR LLAMAS ON 11/11/2020 AT 08:51 PM EDT DISCLAIMER : THIS IS A VISIT SUMMARY EXTRACTED FROM THE [facility] CHART. IT IS NOT A COPY OF THE [facility] PROGRESS NOTE. AUGUSTUS
== END ==
LOC: M PAIN 10:00
PROVIDERS: ATTEND Nurse Practitioner Family
DX: M48.061 Spinal stenosis, lumbar region without neurogenic claudication (principal); M19.90 Unspecified osteoarthritis, unspecified site; E89.0 Postprocedural hypothyroidism; K59.00 Constipation, unspecified; G43.709 Chronic migraine without aura, not intractable, without status migrainosus; K21.9 Gastro-esophageal reflux disease without esophagitis; F32.9 Major depressive disorder, single episode, unspecified; E55.9 Vitamin D deficiency, unspecified; F17.210 Nicotine dependence, cigarettes, uncomplicated; Z79.891 Long term (current) use of opiate analgesic; Z79.899 Other long term (current) drug therapy; Z88.7 Allergy status to serum and vaccine; Z88.6 Allergy status to analgesic agent; Z88.8 Allergy status to other drugs, medicaments and biological substances; Z91.048 Other nonmedicinal substance allergy status

== ENCOUNTER → 2021-02-08 | Outpatient (CLI) | payer MEDICARE ==
[~2021-02-08] MED LIST changes: +QUET1TAB17; -QUET25TA3
== END ==
LOC: M PAIN 09:30
PROVIDERS: ATTEND Anesthesiology
DX: M48.061 Spinal stenosis, lumbar region without neurogenic claudication (principal); E03.9 Hypothyroidism, unspecified; K59.00 Constipation, unspecified; G43.709 Chronic migraine without aura, not intractable, without status migrainosus; F17.210 Nicotine dependence, cigarettes, uncomplicated; K21.9 Gastro-esophageal reflux disease without esophagitis; F32.9 Major depressive disorder, single episode, unspecified; E55.9 Vitamin D deficiency, unspecified; I25.2 Old myocardial infarction; Z95.5 Presence of coronary angioplasty implant and graft; Z86.73 Personal history of transient ischemic attack (TIA), and cerebral infarction without residual deficits; Z86.711 Personal history of pulmonary embolism; Z86.718 Personal history of other venous thrombosis and embolism; Z79.891 Long term (current) use of opiate analgesic; Z79.02 Long term (current) use of antithrombotics/antiplatelets; Z79.899 Other long term (current) drug therapy; Z88.7 Allergy status to serum and vaccine; Z88.6 Allergy status to analgesic agent; Z88.8 Allergy status to other drugs, medicaments and biological substances; Z91.048 Other nonmedicinal substance allergy status

== ENCOUNTER → 2021-04-12 | Outpatient (CLI) | payer MEDICARE | LOC: M PAIN 09:30 | PROVIDERS: ATTEND Anesthesiology | DX: M48.061 Spinal stenosis, lumbar region without neurogenic claudication (principal); I25.2 Old myocardial infarction; Z95.5 Presence of coronary angioplasty implant and graft; Z86.73 Personal history of transient ischemic attack (TIA), and cerebral infarction without residual deficits; Z86.711 Personal history of pulmonary embolism; M19.90 Unspecified osteoarthritis, unspecified site; E89.0 Postprocedural hypothyroidism; K59.00 Constipation, unspecified; G43.709 Chronic migraine without aura, not intractable, without status migrainosus; K21.9 Gastro-esophageal reflux disease without esophagitis; F32.A Depression, unspecified; E55.9 Vitamin D deficiency, unspecified; F17.210 Nicotine dependence, cigarettes, uncomplicated; Z79.4 Long term (current) use of insulin; Z79.891 Long term (current) use of opiate analgesic; Z79.899 Other long term (current) drug therapy; Z79.02 Long term (current) use of antithrombotics/antiplatelets; Z79.01 Long term (current) use of anticoagulants; Z88.7 Allergy status to serum and vaccine; Z88.6 Allergy status to analgesic agent; Z88.8 Allergy status to other drugs, medicaments and biological substances; Z91.048 Other nonmedicinal substance allergy status ==

== ENCOUNTER → 2021-05-06 | Outpatient (CLI) | payer MEDICARE, MEDICAID ==
[2021-05-06 11:01] LABS: HEMOGLOBIN A1c 5.4 %
[2021-05-06 11:20] LABS: CREATININE, URINE 54.3 MG/DL; CREATININE,RANDOM URINE 54.3 MG/DL; MALB URINE SIEMENS 60.9 MG/L; MAU/CREAT RATIO 112.1 MCG/MG (0.0-30.0)
[2021-05-06 11:23] LABS: ALBUMIN 3.8 GM/DL (3.2-5.2); ALT/SGPT 17 U/L (12-78); BILIRUBIN,TOTAL 0.6 MG/DL (0.2-1.0); BLOOD UREA NITROGEN 9 MG/DL (7-18); CALCIUM LEVEL 9.5 MG/DL (8.5-10.1); CARBON DIOXIDE LEVEL 30 MEQ/L (21-32); CHLORIDE LEVEL 104 MEQ/L (98-107); CHOLESTEROL LEVEL 117 MG/DL (<200); CHOLESTEROL RISK RATIO 1.647 (<5); CREATININE FOR GFR 0.63 MG/DL (0.55-1.30); FOLATE 6.8 NG/ML; GLOMERULAR FILTRATION RATE > 60.0 (>51); GLUCOSE, FASTING 111 MG/DL (70-100); HDL CHOLESTEROL 71 MG/DL (>40); LDL CHOLESTEROL 27 MG/DL (<100); NON-HDL-C 46 MG/DL; SODIUM LEVEL 140 MEQ/L (136-145); TOTAL PROTEIN 7.4 GM/DL (6.4-8.2); TRIGLYCERIDES LEVEL 94 MG/DL (<150); VITAMIN B12 LEVEL 352 PG/ML
== END ==
LOC: M PLALAB 09:26
PROVIDERS: ATTEND Student in an Organized Health Care Education/Training Program
DX: E53.8 Deficiency of other specified B group vitamins (principal); R73.03 Prediabetes; I25.10 Atherosclerotic heart disease of native coronary artery without angina pectoris; E03.9 Hypothyroidism, unspecified

== ENCOUNTER → 2021-07-17 | Outpatient (CLI) | payer MEDICARE, MEDICAID | LOC: M LAB 11:15 | PROVIDERS: ATTEND Nurse Practitioner Family | DX: I25.700 Atherosclerosis of coronary artery bypass graft(s), unspecified, with unstable angina pectoris (principal) ==

== ENCOUNTER → 2021-08-01 | Outpatient (REF) | payer MEDICARE | LOC: M SFHCLERA 15:32 | PROVIDERS: ATTEND Student in an Organized Health Care Education/Training Program | DX: Z79.899 Other long term (current) drug therapy (principal) ==

== ENCOUNTER → 2021-08-02 | Outpatient (CLI) | payer MEDICARE | LOC: M RAD 09:55 | PROVIDERS: ATTEND Student in an Organized Health Care Education/Training Program | DX: M25.552 Pain in left hip (principal) ==

== ENCOUNTER → 2021-09-20 | Outpatient (CLI) | payer MEDICARE ==
[2021-09-20 13:29] LABS: BASO % 0.5 % (0.0-1.0); EOS # 0.1 10^3/uL (0.0-0.5); EOS % 0.6 % (0.0-3.0); HEMATOCRIT 42.4 % (36.0-47.0); HEMOGLOBIN 14.5 g/dl (12.0-15.5); LYMPH # 2.8 10^3/uL (1.5-5.0); LYMPH % 34.8 % (24.0-44.0); MEAN CORPUSCULAR HEMOGLOBIN 32.4 pg (27.0-33.0); MEAN CORPUSCULAR HGB CONC 34.2 g/dl (32.0-36.5); MEAN CORPUSCULAR VOLUME 94.9 fl (80.0-96.0); MONO # 0.8 10^3/uL (0.0-0.8); MONO % 9.7 % (2.0-8.0); NEUTROPHILS # 4.3 10^3/uL (1.5-8.5); PLATELET COUNT, AUTOMATED 236 10^3/uL (150-450); RED BLOOD COUNT 4.47 10^6/uL (4.00-5.40); WHITE BLOOD COUNT 7.9 10^3/uL (4.0-10.0)
[2021-09-20 13:53] LABS: ERYTHROCYTE SEDIMENTATION RATE 10 mm/hr (0-30)
== END ==
LOC: M PLALAB 10:05
PROVIDERS: ATTEND Orthopaedic Surgery
DX: M25.552 Pain in left hip (principal)

== ENCOUNTER → 2021-09-30 | Outpatient (REF) | payer MEDICARE, MEDICAID | LOC: M SFHCPLAZ 09:36 | PROVIDERS: ATTEND Physician Assistant | DX: R50.9 Fever, unspecified (principal) ==

== ENCOUNTER → 2021-10-03 | Outpatient (CLI) | payer MEDICARE, MEDICAID | LOC: M RAD 09:39 | PROVIDERS: ATTEND Orthopaedic Surgery | DX: M25.552 Pain in left hip (principal) | CPT/HCPCS: 78315; A9503 ==

== ENCOUNTER → 2021-10-08 | Outpatient (CLI) | payer MEDICARE, MEDICAID | LOC: M RAD 08:40 | PROVIDERS: ATTEND Orthopaedic Surgery | DX: M25.552 Pain in left hip (principal) ==

== ENCOUNTER → 2021-10-22 | Outpatient (REF) | payer MEDICARE, MEDICAID | LOC: M PLALAB 15:43 | PROVIDERS: ATTEND Obstetrics & Gynecology | DX: N95.0 Postmenopausal bleeding (principal); Z12.4 Encounter for screening for malignant neoplasm of cervix | CPT/HCPCS: 87624; 88305; G0123 ==

== ENCOUNTER → 2021-10-23 | Outpatient (CLI) | payer MEDICARE, MEDICAID | LOC: M WHC 12:23 | PROVIDERS: ATTEND Obstetrics & Gynecology | DX: N95.0 Postmenopausal bleeding (principal) ==

== ENCOUNTER → 2021-12-25 | Outpatient (CLI) | payer MEDICARE, MEDICAID ==
[~2021-12-25] MED LIST changes: +ALPR0.5T3; +AMLO1TAB24; +LEVO88TA3; +MORP-69
[2021-12-25 11:13] LABS: BASO % 0.5 % (0.0-1.0); EOS # 0.1 10^3/uL (0.0-0.5); EOS % 1.2 % (0.0-3.0); HEMATOCRIT 43.9 % (36.0-47.0); HEMOGLOBIN 14.6 g/dl (12.0-15.5); LYMPH # 2.6 10^3/uL (1.5-5.0); LYMPH % 35.2 % (24.0-44.0); MEAN CORPUSCULAR HEMOGLOBIN 31.9 pg (27.0-33.0); MEAN CORPUSCULAR HGB CONC 33.3 g/dl (32.0-36.5); MEAN CORPUSCULAR VOLUME 96.1 fl (80.0-96.0); MONO # 0.6 10^3/uL (0.0-0.8); MONO % 8.1 % (2.0-8.0); NEUTROPHILS % 54.7 % (36.0-66.0); PLATELET COUNT, AUTOMATED 229 10^3/uL (150-450); RED BLOOD COUNT 4.57 10^6/uL (4.00-5.40); WHITE BLOOD COUNT 7.3 10^3/uL (4.0-10.0)
[2021-12-25 11:27] LABS: INR 1.2; PROTHROMBIN TIME 15.6 SECONDS (12.7-14.5)
[2021-12-25 12:10] LABS: ALBUMIN 3.5 GM/DL (3.2-5.2); ALT/SGPT 18 U/L (12-78); BILIRUBIN,TOTAL 0.5 MG/DL (0.2-1.0); BLOOD UREA NITROGEN 11 MG/DL (7-18); CALCIUM LEVEL 9.4 MG/DL (8.5-10.1); CARBON DIOXIDE LEVEL 31 MEQ/L (21-32); CHLORIDE LEVEL 107 MEQ/L (98-107); CREATININE FOR GFR 0.74 MG/DL (0.55-1.30); GLOMERULAR FILTRATION RATE > 60.0 (>51); GLUCOSE, FASTING 74 MG/DL (70-100); POTASSIUM SERUM 4.4 MEQ/L (3.5-5.1); SODIUM LEVEL 140 MEQ/L (136-145); TOTAL PROTEIN 6.9 GM/DL (6.4-8.2)
== END ==
LOC: M RAD 09:39
PROVIDERS: ATTEND Student in an Organized Health Care Education/Training Program
DX: Z01.818 Encounter for other preprocedural examination (principal); I10 Essential (primary) hypertension; R00.2 Palpitations; R68.89 Other general symptoms and signs; Z79.01 Long term (current) use of anticoagulants

== ENCOUNTER 2022-01-03 08:25 | Day surgery (SDC) | payer MEDICARE, MEDICAID ==
[~2022-01-03] VITALS: Ht 160 cm; Wt 60.0 kg
[~2022-01-03 08:25] MED LIST changes: +ceFAZolin SOD 2 GM in IV 1 EA IV ONE
[2022-01-03] MEDS ORDERED: LR 1,000 ML IV SCH ×2 (08:35→13:20)
[2022-01-03] MEDS ORDERED: ASPI81CH33 PO (08:41)
[2022-01-03] MEDS ORDERED: ENOX60IN3 SQ (08:41)
[2022-01-03 09:11] LABS: HEMATOCRIT 44.4 % (36.0-47.0); HEMOGLOBIN 14.8 g/dl (12.0-15.5); MEAN CORPUSCULAR HEMOGLOBIN 31.8 pg (27.0-33.0); MEAN CORPUSCULAR HGB CONC 33.3 g/dl (32.0-36.5); MEAN CORPUSCULAR VOLUME 95.3 fl (80.0-96.0); PLATELET COUNT, AUTOMATED 240 10^3/uL (150-450); RED BLOOD COUNT 4.66 10^6/uL (4.00-5.40); WHITE BLOOD COUNT 9.7 10^3/uL (4.0-10.0)
[2022-01-03] MEDS ORDERED: MIDAZOLAM INJ 2MG/2ML VIAL (J2250 PER 1MG) As Ordered ONE (09:26)
[2022-01-03] MEDS ORDERED: fentaNYL 100 MCG/2 ML INJECTION As Ordered ONE (09:27)
[2022-01-03] MEDS ORDERED: HYDROmorphone HCL 2MG/ML 1ML VIAL As Ordered ONE (09:27)
[2022-01-03] MEDS ORDERED: LIDOCAINE 2% INJ 100 MG/5 ML SYRINGE As Ordered ONE (09:28)
[2022-01-03] MEDS ORDERED: dexameTHASONE 4 MG/ML 1ML VIAL (J1100 PER 1MG) As Ordered ONE (09:28)
[2022-01-03] MEDS ORDERED: ONDANSETRON 4MG 2ML VIAL As Ordered ONE (09:28)
[2022-01-03] MEDS ORDERED: propofoL 200 MG/20 ML VIAL As Ordered ONE (09:28)
[2022-01-03] MEDS ORDERED: ROCURONIUM BROMIDE 50 MG/5 ML VIAL As Ordered ONE ×2 (09:28→11:53)
[2022-01-03] MEDS ORDERED: BUPIVACAINE HCL 0.25% 10ML VIAL As Ordered ONE (10:18)
[2022-01-03] MEDS ORDERED: METHYLENE BLUE 0.5% (5MG/ML) 10 ML AMP (PROVAYBLUE) As Ordered ONE (10:19)
[2022-01-03] MEDS ORDERED: SCOPOLAMINE 1MG TRANSDERMAL PATCH TOP SCH (11:00)
[2022-01-03] MEDS ORDERED: METOCLOPRAMIDE INJ 10MG/2ML VIAL (J2765 PER 1) As Ordered ONE (11:16)
[2022-01-03] MEDS ORDERED: ePHEDrine SULFATE 25 MG/5 ML(5MG/ML) SYRINGE As Ordered ONE (11:34)
[2022-01-03] MEDS ORDERED: ACETAMINOPHEN 1000MG 100ML IV BTL (OFIRMEV) (J0131 PER 10MG) As Ordered ONE (11:36)
[2022-01-03] MEDS ORDERED: SUGAMMADEX SODIUM 500 MG/5 ML VIAL (BRIDION) As Ordered ONE (11:38)
[2022-01-03] MEDS ORDERED: ONDANSETRON 4MG 2ML VIAL IV PRN (13:20)
[2022-01-03] MEDS ORDERED: oxyCODONE 5MG TAB PO PRN (13:20)
[2022-01-03] MEDS ORDERED: MORPHINE 2 MG/ML 1ML VIAL IV PRN (13:20)
[2022-01-03] MEDS ORDERED: fentaNYL 100 MCG/2 ML INJECTION IV PRN (13:20)
[2022-01-03] MEDS ORDERED: PERCOCET 5MG/325MG TAB PO PRN (14:00)
[2022-01-03 15:30] VITALS: BP 111/59
== END 2022-01-03 15:50 | disposition home or self-care (01) ==
LOC: M SDC 08:25
PROVIDERS: ATTEND Obstetrics & Gynecology
DX: N87.1 Moderate cervical dysplasia (principal); N88.8 Other specified noninflammatory disorders of cervix uteri; A63.0 Anogenital (venereal) warts; M51.9 Unspecified thoracic, thoracolumbar and lumbosacral intervertebral disc disorder; G89.29 Other chronic pain; F41.9 Anxiety disorder, unspecified; M19.90 Unspecified osteoarthritis, unspecified site; I20.0 Unstable angina; Z86.73 Personal history of transient ischemic attack (TIA), and cerebral infarction without residual deficits; Z86.711 Personal history of pulmonary embolism; Z95.5 Presence of coronary angioplasty implant and graft; E03.9 Hypothyroidism, unspecified; Z87.891 Personal history of nicotine dependence; G43.909 Migraine, unspecified, not intractable, without status migrainosus; K21.9 Gastro-esophageal reflux disease without esophagitis; E55.9 Vitamin D deficiency, unspecified; E11.9 Type 2 diabetes mellitus without complications; E78.00 Pure hypercholesterolemia, unspecified; I48.0 Paroxysmal atrial fibrillation; Z86.718 Personal history of other venous thrombosis and embolism; Z88.8 Allergy status to other drugs, medicaments and biological substances; Z79.899 Other long term (current) drug therapy; Z79.890 Hormone replacement therapy; Z79.01 Long term (current) use of anticoagulants; Z79.02 Long term (current) use of antithrombotics/antiplatelets
CPT/HCPCS: 17110; 36415; 58552; 85027; 86850; 86900; 86901; 88305; 88307; J0131; J0690; J1100; J1170; J2250; J2405; J2765; J3010; Q9968; S2900

== ENCOUNTER 2022-03-03 12:31 | Emergency (ER) | payer MEDICARE, MEDICAID ==
[~2022-03-03] VITALS: Ht 160 cm; Wt 57.3 kg
[~2022-03-03 12:31] MED LIST changes: +ASPI81CH33 PO; +ENOX60IN3 SQ; -ceFAZolin SOD 2 GM in IV 1 EA IV ONE
[2022-03-03 12:33] VITALS: BP 128/76
== END 2022-03-03 17:47 | disposition left against medical advice (07) ==
LOC: M ED 12:31
DX: Z53.21 Procedure and treatment not carried out due to patient leaving prior to being seen by health care provider (principal)

== ENCOUNTER → 2022-03-11 | Outpatient (REF) | payer MEDICARE, MEDICAID | LOC: M SFHCLERA 17:12 | PROVIDERS: ATTEND Student in an Organized Health Care Education/Training Program | DX: R30.0 Dysuria (principal) ==

== ENCOUNTER → 2022-04-17 | Outpatient (CLI) | payer MEDICARE, MEDICAID ==
[~2022-04-17] MED LIST changes: +CLOP75TA99 PO; -PLAV1TAB2 PO
== END ==
LOC: M WHC 08:38
PROVIDERS: ATTEND Student in an Organized Health Care Education/Training Program
DX: R92.2 Inconclusive mammogram (principal)

== ENCOUNTER → 2022-05-06 | Outpatient (CLI) | payer MEDICARE, MEDICAID | LOC: M WHC 14:27 | PROVIDERS: ATTEND Student in an Organized Health Care Education/Training Program | DX: R92.2 Inconclusive mammogram (principal) ==

== ENCOUNTER → 2022-06-29 | Outpatient (CLI) | payer MEDICARE, MEDICAID | LOC: M LABSMTC 09:18 | PROVIDERS: ATTEND Orthopaedic Surgery | DX: Z01.812 Encounter for preprocedural laboratory examination (principal); M25.552 Pain in left hip; M16.12 Unilateral primary osteoarthritis, left hip; Z20.822 Contact with and (suspected) exposure to COVID-19 ==

== ENCOUNTER 2022-08-07 08:48 | Outpatient (RCR) | payer MEDICARE, MEDICAID | END 2022-08-19 | LOC: M PT 08:48 | PROVIDERS: ATTEND Physician Assistant Surgical | DX: M25.552 Pain in left hip (principal) ==

== ENCOUNTER 2022-09-09 14:20 | Outpatient (RCR) | payer MEDICARE, MEDICAID ==
[~2022-09-09 14:20] MED LIST changes: -ALPR0.5T3; +ALPR0.5T3 PO; -AMLO1TAB24; +AMLO1TAB24 PO; -CLOP75TA2; +CLOP75TA2 PO; -LEVO88TA3; +LEVO88TA3 PO; -MORP-69; +MORP-69 PO; -ROSU10TA6; +ROSU10TA6 PO
[2022-09-17] MEDS ORDERED: CVS5000S2 SQ (09:44)
[2022-09-17] MEDS ORDERED: CYAN1000VL IM (09:44)
[2022-09-17] MEDS ORDERED: ONDA8TAB8 PO (09:44)
[2022-09-17] MEDS ORDERED: IPRA3SP NARES (09:45)
== END 2022-09-19 ==
LOC: M PT 14:20
PROVIDERS: ATTEND Physician Assistant Surgical
DX: Z47.89 Encounter for other orthopedic aftercare (principal); Z96.642 Presence of left artificial hip joint

== ENCOUNTER 2022-09-29 13:28 | Outpatient (RCR) | payer MEDICARE, MEDICAID ==
[~2022-09-29 13:28] MED LIST changes: +CVS5000S2 SQ; +CYAN1000VL IM; +IPRA3SP NARES; +ONDA8TAB8 PO
== END 2022-10-19 ==
LOC: M PT 13:28
PROVIDERS: ATTEND Physician Assistant Surgical
DX: Z96.642 Presence of left artificial hip joint (principal)

== ENCOUNTER 2022-10-01 08:47 | Day surgery (SDC) | payer MEDICARE, MEDICAID ==
[~2022-10-01] VITALS: Ht 157.5 cm; Wt 55.3 kg
[2022-10-01 09:36] LABS: HEMATOCRIT 45.6 % (36.0-47.0); HEMOGLOBIN 14.8 g/dl (12.0-15.5); MEAN CORPUSCULAR HEMOGLOBIN 31.4 pg (27.0-33.0); MEAN CORPUSCULAR HGB CONC 32.5 g/dl (32.0-36.5); MEAN CORPUSCULAR VOLUME 96.6 fl (80.0-96.0); PLATELET COUNT, AUTOMATED 230 10^3/uL (150-450); RED BLOOD COUNT 4.72 10^6/uL (4.00-5.40); WHITE BLOOD COUNT 7.6 10^3/uL (4.0-10.0)
[2022-10-01] MEDS ORDERED: MIDAZOLAM INJ 2MG/2ML VIAL As Ordered ONE (09:36)
[2022-10-01] MEDS ORDERED: fentaNYL 100 MCG/2 ML INJECTION As Ordered ONE (09:36)
[2022-10-01] MEDS ORDERED: propofoL 200 MG/20 ML VIAL As Ordered ONE (09:37)
[2022-10-01] MEDS ORDERED: LIDOCAINE 2% 100MG/5ML SDV (FOR ANES.) As Ordered ONE (09:37)
[2022-10-01] MEDS ORDERED: ONDANSETRON 4MG 2ML VIAL As Ordered ONE (09:37)
[2022-10-01] MEDS ORDERED: LIDOCAINE 1% SDV 30ML VIAL As Ordered ONE (10:56)
[2022-10-01] MEDS ORDERED: BUPIVACAINE HCL 0.25% 30ML VIAL As Ordered ONE (10:56)
[2022-10-01] MEDS ORDERED: CHLOROPROCAINE PRES. FREE 3% 20ML VIAL As Ordered ONE (11:37)
[2022-10-01] MEDS ORDERED: ACETAMINOPHEN 1000MG 100ML IV BAG As Ordered ONE (11:40)
[2022-10-01] MEDS ORDERED: SILVER NITRATE APPLICATOR (1 = QTY 10) As Ordered ONE (12:05)
[2022-10-01] MEDS ORDERED: ePHEDrine SULFATE 25 MG/5 ML(5MG/ML) SYRINGE As Ordered ONE (12:06)
[2022-10-01] MEDS ORDERED: ONDANSETRON 4MG 2ML VIAL IV PRN (12:20)
[2022-10-01] MEDS ORDERED: oxyCODONE 5MG TAB PO PRN (12:20)
[2022-10-01] MEDS ORDERED: LR 1,000 ML IV SCH ×2 (12:20)
[2022-10-01] MEDS ORDERED: HYDROMORPHONE HCL 0.5 MG/ 0.5 ML SYRINGE IV PRN (12:20)
[2022-10-01] MEDS ORDERED: fentaNYL 100 MCG/2 ML INJECTION IV PRN (12:20)
[2022-10-01 13:24] VITALS: BP 120/56
== END 2022-10-01 13:50 | disposition home or self-care (01) ==
LOC: M SDC 08:47
PROVIDERS: ATTEND Obstetrics & Gynecology
DX: A63.0 Anogenital (venereal) warts (principal); I10 Essential (primary) hypertension; I25.10 Atherosclerotic heart disease of native coronary artery without angina pectoris; Z95.5 Presence of coronary angioplasty implant and graft; I25.2 Old myocardial infarction; E78.00 Pure hypercholesterolemia, unspecified; E03.9 Hypothyroidism, unspecified; M79.89 Other specified soft tissue disorders; Z96.642 Presence of left artificial hip joint; Z86.711 Personal history of pulmonary embolism; Z86.718 Personal history of other venous thrombosis and embolism; D66 Hereditary factor VIII deficiency; F17.210 Nicotine dependence, cigarettes, uncomplicated; F41.9 Anxiety disorder, unspecified; F32.A Depression, unspecified; I69.351 Hemiplegia and hemiparesis following cerebral infarction affecting right dominant side; G62.9 Polyneuropathy, unspecified; Z79.899 Other long term (current) drug therapy; Z79.891 Long term (current) use of opiate analgesic; Z79.01 Long term (current) use of anticoagulants; Z79.02 Long term (current) use of antithrombotics/antiplatelets; Z79.890 Hormone replacement therapy; Z88.7 Allergy status to serum and vaccine; Z88.8 Allergy status to other drugs, medicaments and biological substances; Z91.048 Other nonmedicinal substance allergy status
CPT/HCPCS: 36415; 58999; 85027; 86850; 86900; 86901; 88305; J0131; J1100; J2250; J2401; J2405; J3010

== ENCOUNTER 2022-11-12 16:00 | Outpatient (RCR) | payer MEDICARE, MEDICAID | END 2022-11-19 | LOC: M PT 16:00 | PROVIDERS: ATTEND Physician Assistant Surgical | DX: Z96.642 Presence of left artificial hip joint (principal) ==

== ENCOUNTER → 2022-11-26 | Outpatient (CLI) | payer MEDICARE, MEDICAID ==
[2022-11-26 10:23] LABS: CHOLESTEROL RISK RATIO 1.71 (<5); HDL CHOLESTEROL 54.8 MG/DL (>40); NON-HDL-C 39.2 MG/DL
== END ==
LOC: M PLALAB 07:09
PROVIDERS: ATTEND Nurse Practitioner Family
DX: E78.00 Pure hypercholesterolemia, unspecified (principal)

== ENCOUNTER → 2023-04-08 | Outpatient (CLI) | payer MEDICARE, MEDICAID | LOC: M PLAIMG 13:50 | PROVIDERS: ATTEND Physician Assistant | DX: R56.9 Unspecified convulsions (principal); R55 Syncope and collapse; R07.9 Chest pain, unspecified ==

== ENCOUNTER → 2023-05-05 | Outpatient (REF) | payer MEDICARE, MEDICAID | LOC: M SFHCLERA 16:52 | PROVIDERS: ATTEND Physician Assistant | DX: J40 Bronchitis, not specified as acute or chronic (principal) ==

== ENCOUNTER → 2023-05-28 | Outpatient (CLI) | payer MEDICARE, MEDICAID | LOC: M WHC 14:56 | PROVIDERS: ATTEND Physician Assistant | DX: Z12.31 Encounter for screening mammogram for malignant neoplasm of breast (principal) ==

== ENCOUNTER 2023-07-18 04:47 | Emergency (ER) | payer MEDICARE, MEDICAID ==
[~2023-07-18] VITALS: Ht 157.5 cm; Wt 54.6 kg
[2023-07-18 10:11] VITALS: BP 126/72; TEMP 97.1; O2SAT 98
== END 2023-07-18 10:13 | disposition home or self-care (01) ==
LOC: M ED 04:47
DX: S76.011A Strain of muscle, fascia and tendon of right hip, initial encounter (principal); M62.838 Other muscle spasm; X58.XXXA Exposure to other specified factors, initial encounter; Y92.9 Unspecified place or not applicable; Y93.9 Activity, unspecified; Y99.9 Unspecified external cause status; Z86.718 Personal history of other venous thrombosis and embolism; Z96.643 Presence of artificial hip joint, bilateral; F17.200 Nicotine dependence, unspecified, uncomplicated; Z88.6 Allergy status to analgesic agent; Z88.7 Allergy status to serum and vaccine; Z79.899 Other long term (current) drug therapy

== ENCOUNTER → 2023-08-29 | Outpatient (CLI) | payer MEDICARE, MEDICAID ==
[2023-08-29 11:02] LABS: BASO % 0.5 % (0.0-1.0); EOS % 0.5 % (0.0-3.0); HEMATOCRIT 41.5 % (36.0-47.0); HEMOGLOBIN 13.8 g/dl (12.0-15.5); LYMPH # 1.8 10^3/uL (1.5-5.0); LYMPH % 28.2 % (24.0-44.0); MEAN CORPUSCULAR HEMOGLOBIN 31.6 pg (27.0-33.0); MEAN CORPUSCULAR HGB CONC 33.3 g/dl (32.0-36.5); MONO # 0.5 10^3/uL (0.0-0.8); MONO % 7.4 % (2.0-8.0); NEUTROPHILS # 4.1 10^3/uL (1.5-8.5); NEUTROPHILS % 63.2 % (36.0-66.0); PLATELET COUNT, AUTOMATED 239 10^3/uL (150-450); RED BLOOD COUNT 4.37 10^6/uL (4.00-5.40); WHITE BLOOD COUNT 6.5 10^3/uL (4.0-10.0)
[2023-08-29 11:28] LABS: HEMOGLOBIN A1c 5.3 % (4.0-6.0)
[2023-08-29 11:32] LABS: ALBUMIN 3.7 G/DL (3.2-5.2); ALKALINE PHOSPHATASE 84 U/L (46-116); ALT/SGPT 19 U/L (7.0-40); AST/SGOT 23 U/L (<34); BILIRUBIN,TOTAL 0.7 MG/DL (0.3-1.2); BLOOD UREA NITROGEN 11 MG/DL (9-23); CALCIUM LEVEL 8.7 MG/DL (8.5-10.1); CARBON DIOXIDE LEVEL 30 MMOL/L (20-31); CHLORIDE LEVEL 110 MMOL/L (98-107); CHOLESTEROL LEVEL 87 MG/DL (<200); CHOLESTEROL RISK RATIO 1.77 (<5); CREATININE FOR GFR 0.57 MG/DL (0.55-1.30); GLOMERULAR FILTRATION RATE > 60.0 (>51); GLUCOSE, FASTING 90 MG/DL (60-100); HDL CHOLESTEROL 49.1 MG/DL (>40); LDL CHOLESTEROL 25.9 MG/DL (<100); NON-HDL-C 37.9 MG/DL; POTASSIUM SERUM 4.6 MMOL/L (3.5-5.1); SODIUM LEVEL 141 MMOL/L (136-145); TOTAL PROTEIN 6.5 G/DL (5.7-8.2); TRIGLYCERIDES LEVEL 60 MG/DL (<150)
[2023-08-29 11:33] LABS: FREE T4 1.43 NG/DL (0.89-1.76)
[2023-08-29 11:34] LABS: TOTAL 25(OH) VITAMIN D 25.4 NG/ML (20.0-100.0); VITAMIN B12 LEVEL 319 PG/ML (211-911)
[2023-08-29 11:35] LABS: FOLATE 13.8 NG/ML (>5.4)
== END ==
LOC: M LAB 10:32
PROVIDERS: ATTEND Physician Assistant
DX: Z00.00 Encounter for general adult medical examination without abnormal findings (principal); Z79.899 Other long term (current) drug therapy

== ENCOUNTER → 2023-11-26 | Outpatient (REF) | payer MEDICARE, MEDICAID ==
[~2023-11-26] MED LIST changes: +ONDA-284 PO; -ONDA8TAB8 PO; -ROSU10TA6 PO; +ROSU10TA61 PO
[2023-11-26 19:19] LABS: FREE T4 1.14 NG/DL (0.89-1.76)
[2023-11-26 19:21] LABS: THYROID STIMULATING HORMONE 0.889 uIU/ML (0.55-4.78)
== END ==
LOC: M SFHCLERA 11:54
PROVIDERS: ATTEND Physician Assistant
DX: F41.9 Anxiety disorder, unspecified (principal)

== ENCOUNTER → 2024-01-20 | Outpatient (CLI) | payer MEDICARE, MEDICAID ==
[2024-01-20 15:06] LABS: BASO # 0.1 10^3/uL (0.0-0.2); BASO % 0.8 % (0.0-1.0); EOS # 0.1 10^3/uL (0.0-0.5); EOS % 1.2 % (0.0-3.0); HEMATOCRIT 37.2 % (36.0-47.0); HEMOGLOBIN 12.6 g/dl (12.0-15.5); LYMPH # 2.4 10^3/uL (1.5-5.0); LYMPH % 39.2 % (24.0-44.0); MEAN CORPUSCULAR HEMOGLOBIN 32.1 pg (27.0-33.0); MEAN CORPUSCULAR HGB CONC 33.9 g/dl (32.0-36.5); MEAN CORPUSCULAR VOLUME 94.9 fl (80.0-96.0); MONO # 0.5 10^3/uL (0.0-0.8); MONO % 8.3 % (2.0-8.0); NEUTROPHILS % 50.3 % (36.0-66.0); PLATELET COUNT, AUTOMATED 220 10^3/uL (150-450); RED BLOOD COUNT 3.92 10^6/uL (4.00-5.40)
[2024-01-20 15:11] LABS: APPEARANCE, URINE CLOUDY (CLEAR); BACTERIA, URINE AUTO 1+ (NEGATIVE); BILIRUBIN, URINE AUTO NEGATIVE (NEGATIVE); BLOOD, URINE BLOOD NEGATIVE (NEGATIVE); COLOR, URINE AMBER (YELLOW); GLUCOSE, URINE (UA) AUTO NEGATIVE (NEGATIVE); KETONE, URINE AUTO TRACE mg/dL (NEGATIVE); LEUKOCYTE ESTERASE, URINE AUTO 2+ (NEGATIVE); MUCUS, URINE SMALL (NEGATIVE); NITRITE, URINE AUTO NEGATIVE (NEGATIVE); PROTEIN, URINE AUTO 1+ mg/dL (NEGATIVE); RBC, URINE AUTO 19 /HPF (0-3); SPECIFIC GRAVITY URINE AUTO 1.023 (1.002-1.035); SQUAMOUS EPITHELIAL CELL UR AU 19 /HPF (0-6); WBC, URINE AUTO 8 /HPF (0-3)
[2024-01-20 15:20] LABS: ERYTHROCYTE SEDIMENTATION RATE 13 mm/hr (0-30)
[2024-01-20 15:30] LABS: URIC ACID 4.5 MG/DL (3.1-7.8)
[2024-01-20 15:31] LABS: C REACTIVE PROTEIN QUANTITATIV < 0.40 MG/DL (<1.0)
[2024-01-20 15:32] LABS: CREATININE, URINE 211.2 MG/DL; MAU/CREAT RATIO 33.6 MCG/MG (0.0-30.0)
[2024-01-20 15:33] LABS: ALBUMIN 3.4 G/DL (3.2-5.2); ALKALINE PHOSPHATASE 88 U/L (46-116); ALT/SGPT 11 U/L (7.0-40); AST/SGOT 18 U/L (<34); BILIRUBIN,TOTAL 0.5 MG/DL (0.3-1.2); BLOOD UREA NITROGEN 10 MG/DL (9-23); CALCIUM LEVEL 8.7 MG/DL (8.5-10.1); CARBON DIOXIDE LEVEL 30 MMOL/L (20-31); CHLORIDE LEVEL 104 MMOL/L (98-107); CREATININE FOR GFR 0.66 MG/DL (0.55-1.30); GLOMERULAR FILTRATION RATE > 60.0 (>51); GLUCOSE, FASTING 110 MG/DL (60-100); POTASSIUM SERUM 3.9 MMOL/L (3.5-5.1); RHEUMATOID FACTOR QUANT < 3.5 IU/ML (<14); SODIUM LEVEL 138 MMOL/L (136-145)
[2024-01-20 15:35] LABS: FREE T4 1.26 NG/DL (0.89-1.76)
[2024-01-20 15:36] LABS: THYROID STIMULATING HORMONE 0.473 uIU/ML (0.55-4.78)
[2024-01-21 14:17] LABS: ANA SCREEN, IFA NEGATIVE (NEGATIVE)
[2024-01-21 22:11] LABS: CYCLIC CITRULLINATED PEPTIDE < 16 UNITS (<20)
== END ==
LOC: M PLALAB 11:52
PROVIDERS: ATTEND Family Medicine
DX: E03.9 Hypothyroidism, unspecified (principal)

== ENCOUNTER → 2024-02-15 | Outpatient (REF) | payer MEDICARE, MEDICAID | LOC: M LAB REF 16:45 | PROVIDERS: ATTEND Surgery | DX: L92.9 Granulomatous disorder of the skin and subcutaneous tissue, unspecified (principal) ==

== ENCOUNTER → 2024-03-04 | Outpatient (CLI) | payer MEDICARE, MEDICAID | LOC: M SOG 08:52 | PROVIDERS: ATTEND Physician Assistant | DX: Z53.9 Procedure and treatment not carried out, unspecified reason (principal) ==

== ENCOUNTER → 2024-03-11 | Outpatient (CLI) | payer MEDICARE, MEDICAID | LOC: M SOG 07:22 | PROVIDERS: ATTEND Physician Assistant | DX: M25.562 Pain in left knee (principal) ==

== ENCOUNTER 2024-03-31 09:45 | Emergency (ER) | payer MEDICARE, MEDICAID ==
[~2024-03-31 09:45] MED LIST changes: -REPA140I; +REPA140I SQ
[2024-03-31 10:08] VITALS: TEMP 95.1; O2SAT 98
[2024-03-31 10:15] LABS: BASO % 0.6 % (0.0-1.0); EOS % 0.5 % (0.0-3.0); HEMATOCRIT 46.3 % (36.0-47.0); HEMOGLOBIN 15.5 g/dl (12.0-15.5); LYMPH # 2.1 10^3/uL (1.5-5.0); LYMPH % 32.1 % (24.0-44.0); MEAN CORPUSCULAR HEMOGLOBIN 32.2 pg (27.0-33.0); MEAN CORPUSCULAR HGB CONC 33.5 g/dl (32.0-36.5); MEAN CORPUSCULAR VOLUME 96.3 fl (80.0-96.0); MONO # 0.6 10^3/uL (0.0-0.8); MONO % 9.1 % (2.0-8.0); NEUTROPHILS # 3.8 10^3/uL (1.5-8.5); NEUTROPHILS % 57.4 % (36.0-66.0); PLATELET COUNT, AUTOMATED 229 10^3/uL (150-450); RED BLOOD COUNT 4.81 10^6/uL (4.00-5.40); WHITE BLOOD COUNT 6.6 10^3/uL (4.0-10.0)
[2024-03-31] MEDS: ASPIRIN 81MG CHEW TABLET PO ONE (10:40)
[2024-03-31 10:57] LABS: BLOOD UREA NITROGEN 11 MG/DL (9-23); CREATININE FOR GFR 0.56 MG/DL (0.55-1.30); GLOMERULAR FILTRATION RATE > 60.0 (>51); GLUCOSE, FASTING 116 MG/DL (60-100); POTASSIUM SERUM 3.9 MMOL/L (3.5-5.1); SODIUM LEVEL 140 MMOL/L (136-145)
[2024-03-31 10:58] LABS: ALKALINE PHOSPHATASE 97 U/L (46-116); ALT/SGPT 13 U/L (7.0-40); AST/SGOT 24 U/L (<34); BILIRUBIN,DIRECT 0.2 MG/DL (<0.4); BILIRUBIN,TOTAL 0.7 MG/DL (0.3-1.2); CALCIUM LEVEL 9.9 MG/DL (8.5-10.1); CARBON DIOXIDE LEVEL 27.9 MMOL/L (20-31); CHLORIDE LEVEL 105 MMOL/L (98-107); CK-MB VALUE MASS 1.2 NG/ML (<3.6); CPK CREATINE PHOSPHOKINASE 134 U/L (34-145); MB/CK RELATIVE INDEX 0.89 (< OR =4); TOTAL PROTEIN 7.4 G/DL (5.7-8.2)
[2024-03-31 10:59] LABS: ALBUMIN 3.9 G/DL (3.2-5.2); LIPASE 31 U/L (12-53); THYROID STIMULATING HORMONE 1.428 uIU/ML (0.55-4.78)
[2024-03-31] MEDS: ONDANSETRON 4MG 2ML VIAL IV ONE (11:16)
[2024-03-31 11:19] LABS: FREE T4 1.45 NG/DL (0.89-1.76)
[2024-03-31] MEDS: MORPHINE 4 MG/ML 1ML VIAL IV PRN (11:25)
[2024-03-31 11:43] VITALS: BP 129/65
[2024-03-31] MEDS ORDERED: ISOVUE-370 76% 100ML VIAL As Ordered ONE (11:48)
[2024-03-31 12:41] LABS: CK-MB VALUE MASS 1.5 NG/ML (<3.6); MB/CK RELATIVE INDEX 1.27 (< OR =4)
[2024-03-31] MEDS ORDERED: SERT-141 PO (13:18)
[2024-03-31] MEDS ORDERED: ALBU8.5H INH (13:19)
[2024-03-31] MEDS ORDERED: HOME MED LIST COMPLETE! XX SCH (14:10)
== END 2024-03-31 14:24 | disposition home or self-care (01) ==
LOC: M ED 09:45
DX: R07.9 Chest pain, unspecified (principal); I45.10 Unspecified right bundle-branch block; I25.2 Old myocardial infarction; K21.9 Gastro-esophageal reflux disease without esophagitis; E03.9 Hypothyroidism, unspecified; D68.4 Acquired coagulation factor deficiency; M32.9 Systemic lupus erythematosus, unspecified; F17.210 Nicotine dependence, cigarettes, uncomplicated; Z88.8 Allergy status to other drugs, medicaments and biological substances; Z88.7 Allergy status to serum and vaccine; Z79.51 Long term (current) use of inhaled steroids; Z79.899 Other long term (current) drug therapy
CPT/HCPCS: 71045; 71275; 80048; 80076; 82550; 82553; 83690; 84439; 84443; 84484; 85025; 93005; 93041; 94760; 96374; 96375; 99284; J2405; Q9967

== ENCOUNTER → 2024-07-06 | Outpatient (REF) | payer MEDICARE, MEDICAID ==
[~2024-07-06] MED LIST changes: +ALBU8.5H INH; +SERT-141 PO
== END ==
LOC: M SFHCLERA 16:33
PROVIDERS: ATTEND Family Medicine
DX: G89.29 Other chronic pain (principal)

== ENCOUNTER 2024-09-05 12:21 | Emergency (ER) | payer MEDICARE, MEDICAID ==
[~2024-09-05] VITALS: Ht 157.5 cm; Wt 57.6 kg
[2024-09-05] MEDS: NS (Normal Saline) 0.9% 1,000 ML IV ONE (14:53)
[2024-09-05 14:54] LABS: BASO % 0.5 % (0.0-1.0); EOS % 0.5 % (0.0-3.0); HEMATOCRIT 42.5 % (36.0-47.0); LYMPH % 29.9 % (24.0-44.0); MEAN CORPUSCULAR HEMOGLOBIN 31.9 pg (27.0-33.0); MEAN CORPUSCULAR HGB CONC 32.9 g/dl (32.0-36.5); MEAN CORPUSCULAR VOLUME 96.8 fl (80.0-96.0); MONO # 0.5 10^3/uL (0.0-0.8); MONO % 6.9 % (2.0-8.0); NEUTROPHILS # 4.1 10^3/uL (1.5-8.5); NEUTROPHILS % 61.9 % (36.0-66.0); PLATELET COUNT, AUTOMATED 236 10^3/uL (150-450); RED BLOOD COUNT 4.39 10^6/uL (4.00-5.40); WHITE BLOOD COUNT 6.5 10^3/uL (4.0-10.0)
[2024-09-05 15:06] LABS: ERYTHROCYTE SEDIMENTATION RATE 27 mm/hr (0-30)
[2024-09-05 15:18] LABS: LIPASE 28 U/L (12-53)
[2024-09-05 15:20] LABS: ALBUMIN 3.5 G/DL (3.2-5.2); ALKALINE PHOSPHATASE 88 U/L (35-104); ALT/SGPT < 9 U/L (7.0-40); AST/SGOT 21 U/L (<34); BILIRUBIN,DIRECT 0.1 MG/DL (<0.4); BILIRUBIN,TOTAL 0.4 MG/DL (0.3-1.2); C REACTIVE PROTEIN QUANTITATIV < 0.50 MG/DL (<1.0); TOTAL PROTEIN 6.9 G/DL (5.7-8.2)
[2024-09-05 15:23] VITALS: BP 150/69; TEMP 97.2; O2SAT 96
[2024-09-05 15:40] LABS: KETONE, URINE AUTO RFX NEGATIVE (NEGATIVE); LEUKOCYTE ESTERASE UR AUTO RFX NEGATIVE (NEGATIVE); MUCUS, URINE RFX SMALL (NEGATIVE); NITRITE, URINE AUTO RFX NEGATIVE (NEGATIVE); RBC, URINE AUTO RFX 3 /HPF (0-3); SQUAM EPITHELIAL CELL UR AURFX 0 /HPF (0-6); WBC, URINE AUTO RFX 2 /HPF (0-3)
[2024-09-05] MEDS ORDERED: ISOVUE-370 76% 100ML VIAL As Ordered ONE (15:48)
[2024-09-05] MEDS: SIMETHICONE 80MG CHEW TAB PO ONE (17:05)
[2024-09-07] MEDS ORDERED: TRAM50TA2 PO (12:57)
== END 2024-09-05 17:41 | disposition home or self-care (01) ==
LOC: M ED 12:21
DX: R10.31 Right lower quadrant pain (principal); I25.119 Atherosclerotic heart disease of native coronary artery with unspecified angina pectoris; I10 Essential (primary) hypertension; E78.5 Hyperlipidemia, unspecified; Z85.850 Personal history of malignant neoplasm of thyroid; Z88.6 Allergy status to analgesic agent; Z88.7 Allergy status to serum and vaccine; Z88.8 Allergy status to other drugs, medicaments and biological substances; Z79.51 Long term (current) use of inhaled steroids; Z79.01 Long term (current) use of anticoagulants; Z79.899 Other long term (current) drug therapy
CPT/HCPCS: 36415; 74177; 80047; 80076; 81001; 83605; 83690; 85025; 85652; 86140; 99284; Q9967

== ENCOUNTER 2024-10-24 12:23 | Emergency (ER) | payer MEDICARE, MEDICAID ==
[~2024-10-24] VITALS: Ht 157.5 cm; Wt 58.4 kg
[~2024-10-24 12:23] MED LIST changes: +TRAM50TA2 PO
[2024-10-24 12:33] VITALS: TEMP 98.2
[2024-10-24 13:23] LABS: BASO # 0.1 10^3/uL (0.0-0.2); BASO % 0.6 % (0.0-1.0); EOS # 0.1 10^3/uL (0.0-0.5); EOS % 0.8 % (0.0-3.0); HEMATOCRIT 44.6 % (36.0-47.0); HEMOGLOBIN 14.8 g/dl (12.0-15.5); LYMPH # 2.4 10^3/uL (1.5-5.0); LYMPH % 30.1 % (24.0-44.0); MEAN CORPUSCULAR HEMOGLOBIN 31.9 pg (27.0-33.0); MEAN CORPUSCULAR HGB CONC 33.2 g/dl (32.0-36.5); MEAN CORPUSCULAR VOLUME 96.1 fl (80.0-96.0); MONO # 0.7 10^3/uL (0.0-0.8); MONO % 8.2 % (2.0-8.0); NEUTROPHILS # 4.8 10^3/uL (1.5-8.5); PLATELET COUNT, AUTOMATED 252 10^3/uL (150-450); RED BLOOD COUNT 4.64 10^6/uL (4.00-5.40); WHITE BLOOD COUNT 7.9 10^3/uL (4.0-10.0)
[2024-10-24] MEDS: ACETAMINOPHEN 325 MG TAB PO ONE (13:59)
[2024-10-24] MEDS: NS (Normal Saline) 0.9% 1,000 ML IV SCH (13:59)
[2024-10-24] MEDS: METOCLOPRAMIDE INJ 10MG/2ML VIAL IV ONE (13:59)
[2024-10-24 14:07] LABS: ALKALINE PHOSPHATASE 95 U/L (35-104); ALT/SGPT 15 U/L (7.0-40); AST/SGOT 29 U/L (<34); BILIRUBIN,TOTAL 0.4 MG/DL (0.3-1.2); BLOOD UREA NITROGEN 13 MG/DL (9-23); CALCIUM LEVEL 9.9 MG/DL (8.5-10.1); CARBON DIOXIDE LEVEL 29 MMOL/L (20-31); CHLORIDE LEVEL 105 MMOL/L (98-107); CREATININE FOR GFR 0.53 MG/DL (0.55-1.30); GLOMERULAR FILTRATION RATE > 90.0 (>51); GLUCOSE, FASTING 92 MG/DL (60-100); MAGNESIUM LEVEL 1.8 MG/DL (1.8-2.4); PHOSPHORUS LEVEL 3.2 MG/DL (2.5-4.9); POTASSIUM SERUM 4.5 MMOL/L (3.5-5.1); SODIUM LEVEL 143 MMOL/L (136-145); TOTAL PROTEIN 7.5 G/DL (5.7-8.2)
[2024-10-24 14:16] LABS: CK-MB VALUE MASS 1.2 NG/ML (<3.6)
[2024-10-24 14:23] LABS: CPK CREATINE PHOSPHOKINASE 95 U/L (34-145); MB/CK RELATIVE INDEX 1.26 (< OR =4)
[2024-10-24 14:30] LABS: KETONE, URINE AUTO RFX NEGATIVE (NEGATIVE); LEUKOCYTE ESTERASE UR AUTO RFX NEGATIVE (NEGATIVE); NITRITE, URINE AUTO RFX NEGATIVE (NEGATIVE); RBC, URINE AUTO RFX 1 /HPF (0-3); SQUAM EPITHELIAL CELL UR AURFX 0 /HPF (0-6); WBC, URINE AUTO RFX 0 /HPF (0-3)
[2024-10-24 14:31] VITALS: BP 119/81; O2SAT 93
[2024-10-24 14:52] LABS: AMPHETAMINES LEVEL URINE NEGATIVE (NEGATIVE)
[2024-10-24 14:53] LABS: BARBITURATES URINE NEGATIVE (NEGATIVE); COCAINE METABOLITE URINE NEGATIVE (NEGATIVE); METHADONE URINE NEGATIVE (NEGATIVE); OPIATES URINE NEGATIVE (NEGATIVE); PHENCYCLIDINE URINE NEGATIVE (NEGATIVE)
[2024-10-24 14:57] LABS: BENZODIAZEPINES URINE POSITIVE (NEGATIVE); CANNABINOIDS URINE POSITIVE (NEGATIVE)
[2024-10-24 15:06] LABS: CK-MB VALUE MASS 1.2 NG/ML (<3.6)
[2024-10-24 15:09] LABS: MB/CK RELATIVE INDEX 1.5 (< OR =4)
== END 2024-10-24 16:22 | disposition left against medical advice (07) ==
LOC: EDBD 12:23 → M ED 12:23
DX: R00.1 Bradycardia, unspecified (principal); I25.119 Atherosclerotic heart disease of native coronary artery with unspecified angina pectoris; R56.9 Unspecified convulsions; I48.91 Unspecified atrial fibrillation; E03.9 Hypothyroidism, unspecified; E78.5 Hyperlipidemia, unspecified; F41.9 Anxiety disorder, unspecified; F32.A Depression, unspecified; F12.10 Cannabis abuse, uncomplicated; Z87.891 Personal history of nicotine dependence; Z88.6 Allergy status to analgesic agent; Z88.7 Allergy status to serum and vaccine; Z88.8 Allergy status to other drugs, medicaments and biological substances; Z79.01 Long term (current) use of anticoagulants; Z79.51 Long term (current) use of inhaled steroids; Z79.899 Other long term (current) drug therapy; Z53.9 Procedure and treatment not carried out, unspecified reason
CPT/HCPCS: 70450; 71045; 72125; 73564; 80047; 80053; 80307; 81001; 82550; 82553; 83735; 84100; 84484; 85025; 93005; 94760; 96361; 96374; 99285; J2765

== ENCOUNTER → 2025-04-06 | Outpatient (REF) | payer MEDICARE, MEDICAID ==
[2025-04-06 20:12] LABS: VITAMIN B12 LEVEL 321.0 PG/ML (211-911)
[2025-04-10 16:22] LABS: HOMOCYST(E)INE SERUM 11.3 umol/L (< or = 13.4)
== END ==
LOC: M SFHCLERA 08:22
PROVIDERS: ATTEND Family Medicine
DX: E53.8 Deficiency of other specified B group vitamins (principal); E03.9 Hypothyroidism, unspecified

== ENCOUNTER → 2025-06-12 | Outpatient (REF) | payer MEDICARE, MEDICAID ==
[~2025-06-12] MED LIST changes: -ROSU10TA61 PO; +ROSU10TA90 PO
== END ==
LOC: M SFHCLERA 08:44
PROVIDERS: ATTEND Family Medicine
DX: E53.8 Deficiency of other specified B group vitamins (principal)

== ENCOUNTER → 2025-06-16 | Outpatient (CLI) | payer MEDICARE, MEDICAID | LOC: M RAD 10:10 | PROVIDERS: ATTEND Family Medicine | DX: R05.3 Chronic cough (principal) ==